=== PATIENT | female | born 1940 | race Caucasian/White ===

== ENCOUNTER 2023-01-24 13:15 | Observation (INO) ==
[2023-01-24] MEDS ORDERED: PANTOprazole 40 MG in SYRINGE 0 ML IV ONE (13:37)
--- NOTE | 2023-01-24 13:49 | Emergency Department Note ---
Impression & Plan GIB (gastrointestinal bleeding), Symptomatic anemia, Elevated troponin level, Acute UTI ED Provider Note NAME: TOOTIE HERMOSILLO AGE: 82 SEX: F : 1940 ARRIVES VIA: Ambulance INFORMANT: Patient ED PROVIDER(S): Nimesh Alexander DO CHIEF COMPLAINT: confusion and dark stool HPI: Patient is an 82-year-old female who presents to the ER for confusion which has been present for the past 2 days associated with hallucinations and dark stools. Patient denies any headache or change in vision. No chest pain or shortness of breath. No nausea vomiting or diarrhea. She does admit to hemorrhoids. She denies any urinary symptoms. Does admit to taking blood thinners. No recent trauma or falls. No belly pain. No other exacerbating or remitting factors. PAST MEDICAL HISTORY:See Below PAST SURGICAL HISTORY:See Below FAMILY HISTORY:See Below SOCIAL HISTORY:See Below HOME MEDICATIONS:See Below ALLERGIES:See Below VITALS:See Below PHYSICAL EXAMINATION: GENERAL: Sitting up in bed, alert, well appearing, well nourished, no distress, non-toxic EYE EXAM: normal conjunctiva. PERRL and EOM's intact. OROPHARYNX: no exudate, no erythema, lips, buccal mucosa, and tongue normal and mucous membranes are moist NECK: supple, no nuchal rigidity, no adenopathy, non-tender LUNGS: Clear to auscultation. Normal chest wall mechanics HEART: no murmurs, S1 normal and S2 normal ABDOMEN: abdomen soft, non-tender, normo-active bowel sounds, no masses, no rebound or guarding. BACK: Back is symmetrical on inspection and there is no deformity, no midline tenderness, no CVA tenderness. SKIN: no rashes and no bruising UPPER EXTREMITIES: upper extremities are grossly normal. LOWER EXTREMITIES: No pitting edema. NEURO EXAM: Normal sensorium, cranial nerves II-XII intact, normal speech, no weakness of arms, no weakness of legs. No drift. Finger to nose intact. Gross sensation intact. MEDICAL DECISION MAKING: Patient is an 82-year-old female brought in by EMS for weakness, dark stools and intermittent agitation/confusion. IV was established blood work was obtained. Labs show mild leukocytosis of 11,000. Hemoglobin at 6.5 with nothing to compare to. Rectally black stools heme positive on NOAC. BMP with creatinine 1.7. LFTs were unremarkable. Troponin slightly up at 34. Lipase unremarkable. EKG with significant ST wave changes and T wave inversions although no chest pain or significant shortness of breath. With the mildly bumped troponin do favor that this is demand in nature with a hemoglobin of 6. UA eventually resulted just following admission and patient was given Rocephin with nitrates and leukocytes. Patient was updated at bedside. Admitted to hospitalist for further evaluation treatment and management. NOAC was not reversed as I favor the GI bleed is likely over several days. No belly pain and consequently CT was not obtained. Triage Nursing notes reviewed. Limited review of prior medical records performed Vital Signs: reviewed and remarkable for no significant abnormalities Differential diagnosis: Infection, dehydration, metabolic abnormality, hypo/hyperglycemia, electrolyte d isturbance, anemia, hypoxia, cardiac sources, intracerebral event, toxicologic, neurologic, as well as other pathologies. ER treatment provided: See below Diagnostics interpreted by me include EKG and cardiac monitoring as listed below: -Cardiac Monitoring: An order was placed for continuous cardiac monitoring. The monitor shows a rate of 78 with sinus rhythm. -ECG: Sinus rhythm at 89 Normal axis Right bundle branch block T wave inversion and ST depressions in the septal anterior as well as T wave inv ersions in the lateral leads QTc 532 No old to compare to -Laboratory studies:Interpreted by me as stated above in MDM and shown below. Imaging studies: Xrays: As interpreted by me: Portable AP upright 1 view of the chest shows no focal infiltrate per my read CTs show: none Consultation(s): Discussed with Dr. Raoul Bird for further evaluation management and treatment Procedures:none Critical Care: I have personally spent 32 minutes of critical care time in the direct management of this patient. This includes bedside care, interpretation of diagnostic studies, and testing, discussion with consultants, patient, and family members, and other required patient management activities. This 32 minutes is in excess of all separately billable procedures. Past Med/Surg History Medical History (Updated 01/24/23 @ 16:42 by Nimesh Alexander DO) Atrial fibrillation CVA (cerebrovascular accident) HLD (hyperlipidemia) HTN (hypertension), benign Lung cancer Surgical History (Updated 01/24/23 @ 16:28 by Reta Swan PA-C) H/O: hysterectomy Status post pneumonectomy Social History Smoking Status: Former smoker Tobacco Type: Cigarettes Feels Safe at Home: Yes Allergies Allergies Allergy/AdvReac Type Severity Reaction Status Date / Time No Known Allergies Allergy Unverified 01/24/23 16:02 Home Meds Home Medications Medication Instructions Recorded Confirmed acetaminophen 500 mg tablet 1,000 mg PO Q6H PRN Pain 01/24/23 01/24/23 (Tylenol Extra Strength) alprazolam 0.5 mg tablet 0.5 mg PO TID PRN Anxiety 01/24/23 01/24/23 apixaban 5 mg tablet (Eliquis) 5 mg PO BID 01/24/23 01/24/23 aspirin 81 mg tablet,delayed 81 mg PO DAILY 01/24/23 01/24/23 release atorvastatin 40 mg tablet 40 mg PO HS 01/24/23 01/24/23 cholecalciferol (vitamin D3) 25 0 mcg PO DAILY 01/24/23 01/24/23 mcg (1,000 unit) tablet (Vitamin D3) cyanocobalamin (vitamin B-12) 0 mcg subcut MO 01/24/23 01/24/23 1,000 mcg/mL injection solution diltiazem HCl 240 mg 240 mg PO DAILY 01/24/23 01/24/23 capsule,extended release 24 hr, controlled (DILT-XR) furosemide 20 mg tablet 20 mg PO BID 01/24/23 01/24/23 glycopyrrolate 9 mcg-formoterol 2 puff inhalation BID 01/24/23 01/24/23 4.8 mcg HFA aerosol inhaler (Bevespi Aerosphere) insulin aspart U-100 100 unit/mL 0 unit subcut TIDM 01/24/23 01/24/23 (3 mL) subcutaneous pen (Novolog FlexPen U-100 Insulin aspart) lisinopril 5 mg tablet 5 mg PO DAILY 01/24/23 01/24/23 potassium 99 mg tablet 99 mg PO DAILY 01/24/23 01/24/23 tramadol 50 mg tablet 50 mg PO Q6 PRN Pain 01/24/23 01/24/23 Results & Data (ED) Vital Signs Vital Signs - 24 hr 01/24/23 13:25 01/24/23 13:26 01/24/23 14:19 Temperature 36.5 C Temperature Source Oral Pulse Rate 82 65 Pulse Rhythm Pulse Strength Respiratory Rate 19 21 Respiratory Effort / Characteristics Non-Labored Respiratory Depth Normal Respiratory Pattern Regular Blood Pressure 139/56 L Blood Pressure Mean 83 Blood Pressure Position Lying Pulse Oximetry 100 100 Oxygen Delivery Method Room Air Nasal Cannula Nasal Cannula Oxygen Flow Rate 4 4 Sepsis Recent Fever Within 48 Hours No Sepsis New/Unexplained Change in Mental Status No Sepsis Action Taken by Nursing No Action Required 01/24/23 14:30 01/24/23 14:30 01/24/23 15:00 Temperature Temperature Source Pulse Rate 73 Pulse Rhythm Pulse Strength Respiratory Rate 19 Respiratory Effort / Characteristics Respiratory Depth Respiratory Pattern Blood Pressure 118/59 L 127/74 Blood Pressure Mean 78 91 Blood Pressure Position Pulse Oximetry Oxygen Delivery Method Nasal Cannula Nasal Cannula Oxygen Flow Rate 4 4 Sepsis Recent Fever Within 48 Hours Sepsis New/Unexplained Change in Mental Status Sepsis Action Taken by Nursing 01/24/23 15:00 01/24/23 15:30 01/24/23 15:30 Temperature Temperature Source Pulse Rate 65 71 Pulse Rhythm Pulse Strength Respiratory Rate 23 25 H Respiratory Effort / Characteristics Respiratory Depth Respiratory Pattern Blood Pressure 145/67 H Blood Pressure Mean 93 Blood Pressure Position Pulse Oximetry 100 Oxygen Delivery Method Nasal Cannula Oxygen Flow Rate 4 Sepsis Recent Fever Within 48 Hours Sepsis New/Unexplained Change in Mental Status Sepsis Action Taken by Nursing 01/24/23 16:04 01/24/23 16:31 Temperature 36.6 C Temperature Source Oral Pulse Rate 67 68 Pulse Rhythm Regular Pulse Strength Normal Respiratory Rate 18 Respiratory Effort / Characteristics Respiratory Depth Respiratory Pattern Blood Pressure 149/60 H Blood Pressure Mean 89 Blood Pressure Position Lying Pulse Oximetry 100 Oxygen Delivery Method Oxygen Flow Rate Sepsis Recent Fever Within 48 Hours Sepsis New/Unexplained Change in Mental Status Sepsis Action Taken by Nursing Laboratory Data 01/24/23 14:01 01/24/23 14:01 Lab Results 01/24/23 01/24/23 01/24/23 Range/Units 14:01 14:01 14:01 WBC 11.12 H (4.8-10.8) K/ul RBC 2.42 L (4.20-5.40) M/uL Hgb 6.5 L* (12.0-16.0) g/dl Hct 20.9 L* (37.0-47.0) % MCV 86.4 (80.0-100.0) fL MCH 26.9 (25.0-34.0) pg MCHC 31.1 L (32.0-36.0) g/dL RDW Std Deviation 50.7 H (36.4-46.3) fL RDW Coeff of Bimal 16.1 H (11.5-14.5) % Plt Count 480 H (130-400) K/uL MPV 10.5 (9.4-12.4) fL Immature Gran % (Auto) 0.7 % Neut % (Auto) 86.5 % Lymph % (Auto) 7.5 % Stearns % (Auto) 4.8 % Eos % (Auto) 0.1 % Baso % (Auto) 0.4 % Neut # (Auto) 9.62 H (1.40-6.50) K/uL Lymph # (Auto) 0.83 L (1.2-3.4) K/uL Stearns # (Auto) 0.53 (0.11-0.59) K/uL Eos # (Auto) 0.01 (0-0.50) K/uL Baso # (Auto) 0.05 (0-0.2) K/uL Immature Gran # (Auto) 0.08 (0.01-0.20) K/uL Polychromasia 1+ Hypochromasia Present Acanthocytes (Spur) 2+ Schistocytes 1+ PT (9.0-12.0) Seconds INR (0.9-1.1) Sodium 140 (136-145) mmol/L Potassium 4.5 (3.5-5.1) mmol/L Chloride 106 (98-107) mmol/L Carbon Dioxide 25 (21-32) mmol/L Anion Gap 9 (3-11) BUN 45 H (6-23) mg/dl Creatinine 1.77 H (0.6-1.2) mg/dl Est Cr Clr Drug Dosing 23.0 ml/min Est GFR ( Amer) 30.0 ml/min Est GFR (Non-Af Amer) 25.9 ml/min BUN/Creatinine Ratio 25.4 H (10-20) Glucose 228 H (70-99(Fasting)) mg/dl Lactate (0.4-2.0) mmol/L Calcium 9.7 (8.5-10.1) mg/dl Magnesium (1.7-2.4) mg/dl Total Bilirubin 0.7 (0.2-1.0) mg/dl AST 12 L (13-39) U/L ALT 10 (7-52) U/L Alkaline Phosphatase 56 (34-104) U/L Troponin I High Sens 34.1 H (0-14) pg/ml Total Protein 6.8 (6.0-8.3) gm/dl Albumin 4.5 (3.4-5.0) gm/dl Globulin 2.3 L (2.5-4.0) gm/dl Albumin/Globulin Ratio 2.0 (0.9-2) Lipase 22 (11-82) U/L Urine Color Urine Appearance (Clear) Urine pH (4.5-7.5) Ur Specific [place] (1.000-1.030) Urine Protein (Negative) Urine Glucose (UA) (Negative) Urine Ketones (Negative) Urine Blood (Negative) Urine Nitrite (Negative) Urine Bilirubin (Negative) Urine Urobilinogen (Negative) Ur Leukocyte Esterase (Negative) SARS-CoV-2 (PCR) (Negative) Influenza Type A (PCR) (Neg) Influenza Type B (PCR) (Neg) RSV (RT-PCR) (Neg) Blood Type A Positive Blood Type Recheck Antibody Screen NEGATIVE Crossmatch See Detail 01/24/23 01/24/23 01/24/23 Range/Units 14:01 14:02 15:24 WBC (4.8-10.8) K/ul RBC (4.20-5.40) M/uL Hgb (12.0-16.0) g/dl Hct (37.0-47.0) % MCV (80.0-100.0) fL MCH (25.0-34.0) pg MCHC (32.0-36.0) g/dL RDW Std Deviation (36.4-46.3) fL RDW Coeff of Bimal (11.5-14.5) % Plt Count (130-400) K/uL MPV (9.4-12.4) fL Immature Gran % (Auto) % Neut % (Auto) % Lymph % (Auto) % Stearns % (Auto) % Eos % (Auto) % Baso % (Auto) % Neut # (Auto) (1.40-6.50) K/uL Lymph # (Auto) (1.2-3.4) K/uL Stearns # (Auto) (0.11-0.59) K/uL Eos # (Auto) (0-0.50) K/uL Baso # (Auto) (0-0.2) K/uL Immature Gran # (Auto) (0.01-0.20) K/uL Polychromasia Hypochromasia Acanthocytes (Spur) Schistocytes PT 12.9 H (9.0-12.0) Seconds INR 1.2 H (0.9-1.1) Sodium (136-145) mmol/L Potassium (3.5-5.1) mmol/L Chloride (98-107) mmol/L Carbon Dioxide (21-32) mmol/L Anion Gap (3-11) BUN (6-23) mg/dl Creatinine (0.6-1.2) mg/dl Est Cr Clr Drug Dosing ml/min Est GFR ( Amer) ml/min Est GFR (Non-Af Amer) ml/min BUN/Creatinine Ratio (10-20) Glucose (70-99(Fasting)) mg/dl Lactate (0.4-2.0) mmol/L Calcium (8.5-10.1) mg/dl Magnesium (1.7-2.4) mg/dl Total Bilirubin (0.2-1.0) mg/dl AST (13-39) U/L ALT (7-52) U/L Alkaline Phosphatase (34-104) U/L Troponin I High Sens (0-14) pg/ml Total Protein (6.0-8.3) gm/dl Albumin (3.4-5.0) gm/dl Globulin (2.5-4.0) gm/dl Albumin/Globulin Ratio (0.9-2) Lipase (11-82) U/L Urine Color Urine Appearance (Clear) Urine pH (4.5-7.5) Ur Specific [place] (1.000-1.030) Urine Protein (Negative) Urine Glucose (UA) (Negative) Urine Ketones (Negative) Urine Blood (Negative) Urine Nitrite (Negative) Urine Bilirubin (Negative) Urine Urobilinogen (Negative) Ur Leukocyte Esterase (Negative) SARS-CoV-2 (PCR) NEGATIVE (Negative) Influenza Type A (PCR) Negative (Neg) Influenza Type B (PCR) Negative (Neg) RSV (RT-PCR) Negative (Neg) Blood Type Blood Type Recheck A Positive Antibody Screen Crossmatch 02/28/23 02/28/23 02/28/23 Range/Units 15:25 15:25 15:36 WBC (4.8-10.8) K/ul RBC (4.20-5.40) M/uL Hgb (12.0-16.0) g/dl Hct (37.0-47.0) % MCV (80.0-100.0) fL MCH (25.0-34.0) pg MCHC (32.0-36.0) g/dL RDW Std Deviation (36.4-46.3) fL RDW Coeff of Bimal (11.5-14.5) % Plt Count (130-400) K/uL MPV (9.4-12.4) fL Immature Gran % (Auto) % Neut % (Auto) % Lymph % (Auto) % Stearns % (Auto) % Eos % (Auto) % Baso % (Auto) % Neut # (Auto) (1.40-6.50) K/uL Lymph # (Auto) (1.2-3.4) K/uL Stearns # (Auto) (0.11-0.59) K/uL Eos # (Auto) (0-0.50) K/uL Baso # (Auto) (0-0.2) K/uL Immature Gran # (Auto) (0.01-0.20) K/uL Polychromasia Hypochromasia Acanthocytes (Spur) Schistocytes PT (9.0-12.0) Seconds INR (0.9-1.1) Sodium (136-145) mmol/L Potassium (3.5-5.1) mmol/L Chloride (98-107) mmol/L Carbon Dioxide (21-32) mmol/L Anion Gap (3-11) BUN (6-23) mg/dl Creatinine (0.6-1.2) mg/dl Est Cr Clr Drug Dosing ml/min Est GFR ( Amer) ml/min Est GFR (Non-Af Amer) ml/min BUN/Creatinine Ratio (10-20) Glucose (70-99(Fasting)) mg/dl Lactate 1.0 (0.4-2.0) mmol/L Calcium (8.5-10.1) mg/dl Magnesium 2.2 (1.7-2.4) mg/dl Total Bilirubin (0.2-1.0) mg/dl AST (13-39) U/L ALT (7-52) U/L Alkaline Phosphatase (34-104) U/L Troponin I High Sens (0-14) pg/ml Total Protein (6.0-8.3) gm/dl Albumin (3.4-5.0) gm/dl Globulin (2.5-4.0) gm/dl Albumin/Globulin Ratio (0.9-2) Lipase (11-82) U/L Urine Color Yellow Urine Appearance Cloudy A (Clear) Urine pH 6.0 (4.5-7.5) Ur Specific [place] 1.015 (1.000-1.030) Urine Protein Negative (Negative) Urine Glucose (UA) Negative (Negative) Urine Ketones 1+ H (Negative) Urine Blood Negative (Negative) Urine Nitrite Positive A (Negative) Urine Bilirubin Negative (Negative) Urine Urobilinogen Negative (Negative) Ur Leukocyte Esterase 2+ H (Negative) SARS-CoV-2 (PCR) (Negative) Influenza Type A (PCR) (Neg) Influenza Type B (PCR) (Neg) RSV (RT-PCR) (Neg) Blood Type Blood Type Recheck Antibody Screen Crossmatch Administered Medications Pantoprazole Sodium 40 mg/ (Dextrose) 100 mls @ 20 mls/hr IV Q5H KERWIN Stop: 02/23/23 15:29 Last Admin: 01/24/23 16:35 Dose: 8 mg/hr, 20 mls/hr Documented By: DL Discontinued Medications Pantoprazole Sodium 40 mg/ (Syringe) 10 mls @ 5 mls/min IV NOW ONE Stop: 01/24/23 13:38 Last Admin: 01/24/23 15:35 Dose: 5 mls/min Documented By: [facility] Imaging Data Radiologist's Impression: Chest X-Ray 01/24/23 13:27 XR chest 1V portable CLINICAL HISTORY: Chest pain. COMPARISON STUDY: No previous studies for comparison. FINDINGS: Multiple right-sided rib deformities are noted. These may be postoperative. Mild elevation of the right hemidiaphragm is noted. There is no pneumothorax or pleural effusion. No consolidation is identified. Note is made of moderate cardiomegaly with pulmonary vascular congestion. There is no evidence for pulmonary edema. Bilateral hilar prominence is likely due to pulmonary vessels. IMPRESSION: 1. Cardiomegaly with pulmonary vascular congestion. 2. Bilateral hilar prominence, likely due to pulmonary vessels. ACT 112: Negative or not required by law. Electronically signed by: Thoams Dias M.D. 01/24/2023 2:17 PM Discharge Plan Visit Data Chief Complaint: Urinary Symptoms Stated Complaint: AMS, POSSIBLE UTI ED Provider: Nimesh Alexander Discharge Problem: GIB (gastrointestinal bleeding), Symptomatic anemia, Elevated troponin level, Acute UTI Forms Stand Alone Forms: My [facility] [employer] Prescriptions Prescriptions: No Action atorvastatin 40 mg tablet 40 mg PO HS diltiazem HCl [DILT-XR] 240 mg capsule,ext.rel 24h degradable 240 mg PO DAILY aspirin [Aspir-81] 81 mg Tablet,Delayed Release (Dr/Ec) 81 mg PO DAILY tramadol 50 mg tablet 50 mg PO Q6 PRN (Reason: Pain) acetaminophen [Tylenol Extra Strength] 500 mg Tablet 1,000 mg PO Q6H PRN (Reason: Pain) alprazolam 0.5 mg tablet 0.5 mg PO TID PRN (Reason: Anxiety) potassium 99 mg Tablet 99 mg PO DAILY cyanocobalamin (vitamin B-12) [Vitamin B-12] 1,000 mcg/mL Solution 0 mcg SUBCUT MO lisinopril 5 mg tablet 5 mg PO DAILY furosemide 20 mg tablet 20 mg PO BID insulin aspart U-100 [Novolog FlexPen U-100 Insulin] 100 unit/mL (3 mL) insulin pen 0 unit SUBCUT TIDM Rx Instructions: Per sliding scale cholecalciferol (vitamin D3) [Vitamin D3] 25 mcg (1,000 unit) Tablet 0 mcg PO DAILY Eliquis 5 mg tablet 5 mg PO BID Bevespi Aerosphere 9-4.8 mcg HFA aerosol inhaler 2 puff INHALATION BID Referrals Referrals: PCP,NO [Physician] -
--- NOTE | 2023-01-24 14:18 | XRay Report ---
XR chest 1V portable CLINICAL HISTORY: Chest pain. COMPARISON STUDY: No previous studies for comparison. FINDINGS: Multiple right-sided rib deformities are noted. These may be postoperative. Mild elevation of the right hemidiaphragm is noted. There is no pneumothorax or pleural effusion. No consolidation i s identified. Note is made of moderate cardiomegaly with pulmonary vascular congestion. There is no e vidence for pulmonary edema. Bilateral hilar prominence is likely due to pulmonary vessels. IMPRESSION: 1. Cardiomegaly with pulmonary vascular congestion. 2. Bilateral hilar prominence, likely due to pulmonary vessels. ACT 112: Negative or not required by law. Electronically signed by: Thomas Dias M.D. 01/24/2023 2:17 PM
[2023-01-24 14:46] LABS: Albumin Level 4.5 gm/dl (3.4-5.0); BUN Creatinine Ratio 25.4 (10-20); Bilirubin,Total 0.7 mg/dl (0.2-1.0); Calcium 9.7 mg/dl (8.5-10.1); Est GFR (Non-African American) 25.9 ml/min; Globulin 2.3 gm/dl (2.5-4.0); Potassium 4.5 mmol/L (3.5-5.1); Total Protein 6.8 gm/dl (6.0-8.3)
[2023-01-24] MEDS ORDERED: SODIUM CHLORIDE 0.9% 250 ML IV PRN ×2 (14:47→21:47)
[2023-01-24 14:48] LABS: Hematocrit (blood only) 20.9 % (37.0-47.0); Hemoglobin 6.5 g/dl (12.0-16.0); Mean Corpuscular Hemoglobin 26.9 pg (25.0-34.0); Mean Corpuscular Hgb Conc 31.1 g/dL (32.0-36.0); Mean Corpuscular Volume 86.4 fL (80.0-100.0); Mean Platelet Volume 10.5 fL (9.4-12.4); Platelet Count 480 K/uL (130-400); RDW Coefficient of Variation 16.1 % (11.5-14.5); RDW Standard Deviation 50.7 fL (36.4-46.3); Red Blood Count 2.42 M/uL (4.20-5.40); Troponin I High Sensitivity 34.1 pg/ml (0-14); White Blood Count 11.12 K/ul (4.8-10.8)
[2023-01-24 14:50] LABS: Acanthocytes 2+; Basophils # (auto) 0.05 K/uL (0-0.2); Basophils % (auto) 0.4 %; Eosinophils # (auto) 0.01 K/uL (0-0.50); Eosinophils % (auto) 0.1 %; Hypochromasia Present; Immature Granulocytes # (auto) 0.08 K/uL (0.01-0.20); Immature Granulocytes % (auto) 0.7 %; Lymphocytes # (auto) 0.83 K/uL (1.2-3.4); Lymphocytes % (auto) 7.5 %; Monocytes # (auto) 0.53 K/uL (0.11-0.59); Monocytes % (auto) 4.8 %; Neutrophils # (auto) 9.62 K/uL (1.40-6.50); Neutrophils % (auto) 86.5 %; Polychromasia 1+; Schistocytes 1+
--- NOTE | 2023-01-24 14:51 | Electrocardiogram Report ---
Test Reason : Blood Pressure : / mmHG Vent. Rate : 089 BPM Atrial Rate : 093 BPM P-R Int : 184 ms QRS Dur : 148 ms QT Int : 438 ms P-R-T Axes : 000 229 -38 degrees QTc Int : 532 ms Normal sinus rhythm with sinus arrhythmia Right bundle branch block , plus right ventricular hypertrophy T wave abnormality, consider lateral ischemia Abnormal ECG No previous ECGs available Confirmed by Ketan Miguel ([id number]) on 01/24/2023 2:50:34 PM Referred By: Confirmed By:Ketan Miguel
[2023-01-24 14:57] LABS: INR 1.2 (0.9-1.1); Prothrombin Time 12.9 Seconds (9.0-12.0)
[2023-01-24 15:02] LABS: Influenza A virus by PCR Negative (Neg); Influenza B virus by PCR Negative (Neg); RSV by PCR Negative (Neg); SARS CoV2 RNA(COVID-19) Ceph NEGATIVE (Negative)
--- NOTE | 2023-01-24 15:34 | History & Physical Report ---
Date of Service January 24, 2023 Assessment & Plan (1) GIB (gastrointestinal bleeding): Plan: Presented to ER w/ AMS and hgb 6.5, unclear baseline, on eliquis (however appears to be on higher dose than likely should given her age/weight/kidney function and should have been on 2.5mg BID) Also w/ possible JALIL Cr 1.77 however no prior values to compare. Trop 34 EKG w/ NSR/sinus arrhythmia, RBB, RVH, T wave abn in lateral leads -- trop 34, likely demand ischemia in setting of anemia/GIB and will trend Given patient mentating, and actually on 4L at baseline, suspect this has been going on for some time, but without prior values difficult to determine Records from PCP requested, Dr Barahona T/S ordered, type/cross for [address] from ER -- 1st unit when blood available and will monitor serial CBCs/additional PRBC if needed check iron studies w/ AM blood for eval Protonix IVP in ER, placed on protonix gtt for now but can consider IV BID given dose appear to be stable NPO, ordered clear liquids for now given GI and NPO at midnight Avoiding IVF given volume overload on CXR and may need dose of lasix following blood transfusion. On usual 4L NC at baseline serial CBC Per discussion w/ GI, rec CTAP, will do w/ oral contrast given her Cr 1.77 GI consulted holding eliquis in setting of GIB, SCDs ordered -- no Kcentra for now, but if further drop on repeat can consider however again, appears stable compared to prior values Has had c-scope in the past but it has been quite a long time , no prior known EGD Monitor labs on repeat/additional blood as needed (2) H/O: HTN (hypertension): Plan: BP 139/56 appears on cardizem 240mg, lisinopril 10mg, amlodipine 5mg daily, lasix 20mg BID holding lisinopril/lasix PO given suspected JALIL from ABLA continue cardizem/amlodipine for now may need dose IV lasix w/ additional blood however Monitor BP (3) HLD (hyperlipidemia): Plan: atorvastastin 40mg daily (4) Diabetes mellitus: Plan: unknown baseline A1c, 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5mg BID Mentation at baseline, no deficits on exam, daughter at baseline (reported confusion at home 2 days ago) (8) Hx of pneumonectomy: Plan: for lung ca in previous smoker, hasn't smoked in many years remains on inhaler daily, 4L NC Does endorse SOB w/ ambulation, suspect due to underlying anemia monitor SOB symptoms w/ blood transfusion History of Present Illness Chief Complaint: confusion x 2 days, hallucinations and dark stools Primary Care Provider: NO PCP 82yo female presented to the emergency department with two days of confusion w/ reported darkened stools on Eliquis. Hgb 6.5 on admission, unknown baseline. WBC 11.12 CXR w/ cardiomegaly with pulmonary vascular congestion, bilateral hilar prominence likely due to pulmonary vessels. Patient has been consented for blood, 2u ordered but not ready. Plan to give Lasix w/ blood given overload and tech getting second IV site. 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 She does endorse shortness of breath/chest discomfort with ambulation which has been going on for some time. States hx lung ca s/p resection, used to be a smoker. In remission. States she does chronically wear oxygen, 4L at baseline. Currently 100% on 4L. She does take Lasix 20mg twice daily but does not check her weights. She states she was previously on Plavix, history of stroke, but found to have afib and was switched from Plavix to Eliquis this past October. Noted last BM yesterday, chronic issues w/ bowel movements. 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 Daughter noted the darkened stools with bowel movement as she was cleaning up her potty chair. No abdominal pain, nausea/vomiting at present. She states currently she feels fine and is either "going to freeze to " or "starve to ". Discussed clear liquids for today and NPO at midnight and would like abdominal imaging for more information. questions/concerns addressed at this time. Allergies Allergy/AdvReac Type Severity Reaction Status Date / Time No Known Allergies Allergy Unverified 01/24/23 16:02 Home Medications Medication Instructions Recorded Confirmed Type acetaminophen 500 mg tablet 1,000 mg PO Q6H PRN Pain 01/24/23 01/24/23 History (Tylenol Extra Strength) alprazolam 0.5 mg tablet 0.5 mg PO TID PRN Anxiety 01/24/23 01/24/23 History apixaban 5 mg tablet (Eliquis) 5 mg PO BID 01/24/23 01/24/23 History aspirin 81 mg tablet,delayed 81 mg PO DAILY 01/24/23 01/24/23 History release atorvastatin 40 mg tablet 40 mg PO HS 01/24/23 01/24/23 History cholecalciferol (vitamin D3) 25 0 mcg PO DAILY 01/24/23 01/24/23 History mcg (1,000 unit) tablet (Vitamin D3) cyanocobalamin (vitamin B-12) 0 mcg subcut MO 01/24/23 01/24/23 History 1,000 mcg/mL injection solution diltiazem HCl 240 mg 240 mg PO DAILY 01/24/23 01/24/23 History capsule,extended release 24 hr, controlled (DILT-XR) furosemide 20 mg tablet 20 mg PO BID 01/24/23 01/24/23 History glycopyrrolate 9 mcg-formoterol 2 puff inhalation BID 01/24/23 01/24/23 History 4.8 mcg HFA aerosol inhaler (Bevespi Aerosphere) insulin aspart U-100 100 unit/mL 0 unit subcut TIDM 01/24/23 01/24/23 History (3 mL) subcutaneous pen (Novolog FlexPen U-100 Insulin aspart) lisinopril 5 mg tablet 5 mg PO DAILY 01/24/23 01/24/23 History potassium 99 mg tablet 99 mg PO DAILY 01/24/23 01/24/23 History tramadol 50 mg tablet 50 mg PO Q6 PRN Pain 01/24/23 01/24/23 History Past Med/Surg History Medical History (Updated 01/24/23 @ 16:42 by Nimesh Alexander DO) Atrial fibrillation CVA (cerebrovascular accident) HLD (hyperlipidemia) HTN (hypertension), benign Lung cancer Surgical History (Updated 01/24/23 @ 16:28 by Reta Swan PA-C) H/O: hysterectomy Status post pneumonectomy Social History Smoking Status: Former smoker Tobacco Type: Cigarettes Second Hand Exposure: No; Do You Dip or Chew Tobacco: No; Tobacco Cessation Education Requested by Patient: No Hx Alcohol Use: No Hx Substance Use: No Preferred Language: Kinyarwanda Communication Ability: Effective Boot Repairer Required: No Beliefs That Will Affect Care: None Current Living Situation: Spouse Other Information That Helps Us Care for You: No Feels Safe at Home: Yes Assistive Devices: Denture - Upper, Hospital Bed and Oxygen - Continuous Review of Systems Review of Systems: All systems reviewed & are unremarkable except as noted in HPI & below Physical Exam Physical Exam: General: chronically ill appearing female sitting up in bed, NAD, daughter at bedside, general pallor/jaundiced appearance HEENT; head normocephalic, mm slightly dry, trachea midline, no deviation Resp: diminished in the bases, no significant wheezing, on 4L chronically CV: regular w/ PACs, +murmur, no significant LE edema/trace, pulses palpable, extremities cool GI: +BS, slight distension, nontender, no appreciable masses : no cornell MSK/Neuro: follows commands, no focal deficits, CN intact grossly Psych: alert/oriented to person/place/time Results & Data Results & Data ([facility]) Vital Signs (Past 12 Hours) Vital Signs Temp Pulse Resp BP Pulse Ox O2 Del Method O2 Flow Rate 01/24/23 13:26 100 Nasal Cannula 4 01/24/23 13:25 36.5 C 82 19 139/56 L 100 Room Air Laboratory Results 01/24/23 01/24/23 01/24/23 Range/Units 15:36 15:25 15:25 WBC (4.8-10.8) K/ul RBC (4.20-5.40) M/uL Hgb (12.0-16.0) g/dl Hct (37.0-47.0) % MCV (80.0-100.0) fL MCH (25.0-34.0) pg MCHC (32.0-36.0) g/dL RDW Std Deviation (36.4-46.3) fL RDW Coeff of Bimal (11.5-14.5) % Plt Count (130-400) K/uL MPV (9.4-12.4) fL Immature Gran % (Auto) % Neut % (Auto) % Lymph % (Auto) % Ashe % (Auto) % Eos % (Auto) % Baso % (Auto) % Neut # (Auto) (1.40-6.50) K/uL Lymph # (Auto) (1.2-3.4) K/uL Ashe # (Auto) (0.11-0.59) K/uL Eos # (Auto) (0-0.50) K/uL Baso # (Auto) (0-0.2) K/uL Immature Gran # (Auto) (0.01-0.20) K/uL Polychromasia Hypochromasia Acanthocytes (Spur) Schistocytes PT (9.0-12.0) Seconds INR (0.9-1.1) Sodium (136-145) mmol/L Potassium (3.5-5.1) mmol/L Chloride (98-107) mmol/L Carbon Dioxide (21-32) mmol/L Anion Gap (3-11) BUN (6-23) mg/dl Creatinine (0.6-1.2) mg/dl Est Cr Clr Drug Dosing ml/min Est GFR ( Amer) ml/min Est GFR (Non-Af Amer) ml/min BUN/Creatinine Ratio (10-20) Glucose (70-99(Fasting)) mg/dl Lactate 1.0 (0.4-2.0) mmol/L Calcium (8.5-10.1) mg/dl Magnesium Pending Iron Pending TIBC Pending Unsaturated IBC Pending Transferrin % Sat Pending Ferritin Pending Total Bilirubin (0.2-1.0) mg/dl AST (13-39) U/L ALT (7-52) U/L Alkaline Phosphatase (34-104) U/L Troponin I High Sens (0-14) pg/ml Total Protein (6.0-8.3) gm/dl Albumin (3.4-5.0) gm/dl Globulin (2.5-4.0) gm/dl Albumin/Globulin Ratio (0.9-2) Lipase (11-82) U/L Urine Color Pending Urine Appearance Pending Urine pH Pending Ur Specific [place] Pending Urine Protein Pending Urine Glucose (UA) Pending Urine Ketones Pending Urine Blood Pending Urine Nitrite Pending Urine Bilirubin Pending Urine Urobilinogen Pending Ur Leukocyte Esterase Pending SARS-CoV-2 (PCR) (Negative) Influenza Type A (PCR) (Neg) Influenza Type B (PCR) (Neg) RSV (RT-PCR) (Neg) Blood Type Blood Type Recheck Antibody Screen Crossmatch 01/24/23 01/24/23 01/24/23 Range/Units 15:24 14:02 14:01 WBC (4.8-10.8) K/ul RBC (4.20-5.40) M/uL Hgb (12.0-16.0) g/dl Hct (37.0-47.0) % MCV (80.0-100.0) fL MCH (25.0-34.0) pg MCHC (32.0-36.0) g/dL RDW Std Deviation (36.4-46.3) fL RDW Coeff of Bimal (11.5-14.5) % Plt Count (130-400) K/uL MPV (9.4-12.4) fL Immature Gran % (Auto) % Neut % (Auto) % Lymph % (Auto) % Ashe % (Auto) % Eos % (Auto) % Baso % (Auto) % Neut # (Auto) (1.40-6.50) K/uL Lymph # (Auto) (1.2-3.4) K/uL Ashe # (Auto) (0.11-0.59) K/uL Eos # (Auto) (0-0.50) K/uL Baso # (Auto) (0-0.2) K/uL Immature Gran # (Auto) (0.01-0.20) K/uL Polychromasia Hypochromasia Acanthocytes (Spur) Schistocytes PT 12.9 H (9.0-12.0) Seconds INR 1.2 H (0.9-1.1) Sodium (136-145) mmol/L Potassium (3.5-5.1) mmol/L Chloride (98-107) mmol/L Carbon Dioxide (21-32) mmol/L Anion Gap (3-11) BUN (6-23) mg/dl Creatinine (0.6-1.2) mg/dl Est Cr Clr Drug Dosing ml/min Est GFR ( Amer) ml/min Est GFR (Non-Af Amer) ml/min BUN/Creatinine Ratio (10-20) Glucose (70-99(Fasting)) mg/dl Lactate (0.4-2.0) mmol/L Calcium (8.5-10.1) mg/dl Magnesium Iron TIBC Unsaturated IBC Transferrin % Sat Ferritin Total Bilirubin (0.2-1.0) mg/dl AST (13-39) U/L ALT (7-52) U/L Alkaline Phosphatase (34-104) U/L Troponin I High Sens (0-14) pg/ml Total Protein (6.0-8.3) gm/dl Albumin (3.4-5.0) gm/dl Globulin (2.5-4.0) gm/dl Albumin/Globulin Ratio (0.9-2) Lipase (11-82) U/L Urine Color Urine Appearance Urine pH Ur Specific [place] Urine Protein Urine Glucose (UA) Urine Ketones Urine Blood Urine Nitrite Urine Bilirubin Urine Urobilinogen Ur Leukocyte Esterase SARS-CoV-2 (PCR) NEGATIVE (Negative) Influenza Type A (PCR) Negative (Neg) Influenza Type B (PCR) Negative (Neg) RSV (RT-PCR) Negative (Neg) Blood Type Blood Type Recheck A Positive Antibody Screen Crossmatch 01/24/23 01/24/23 01/24/23 Range/Units 14:01 14:01 14:01 WBC 11.12 H (4.8-10.8) K/ul RBC 2.42 L (4.20-5.40) M/uL Hgb 6.5 L* (12.0-16.0) g/dl Hct 20.9 L* (37.0-47.0) % MCV 86.4 (80.0-100.0) fL MCH 26.9 (25.0-34.0) pg MCHC 31.1 L (32.0-36.0) g/dL RDW Std Deviation 50.7 H (36.4-46.3) fL RDW Coeff of Bimal 16.1 H (11.5-14.5) % Plt Count 480 H (130-400) K/uL MPV 10.5 (9.4-12.4) fL Immature Gran % (Auto) 0.7 % Neut % (Auto) 86.5 % Lymph % (Auto) 7.5 % Ashe % (Auto) 4.8 % Eos % (Auto) 0.1 % Baso % (Auto) 0.4 % Neut # (Auto) 9.62 H (1.40-6.50) K/uL Lymph # (Auto) 0.83 L (1.2-3.4) K/uL [place]he # (Auto) 0.53 (0.11-0.59) K/uL Eos # (Auto) 0.01 (0-0.50) K/uL Baso # (Auto) 0.05 (0-0.2) K/uL Immature Gran # (Auto) 0.08 (0.01-0.20) K/uL Polychromasia 1+ Hypochromasia Present Acanthocytes (Spur) 2+ Schistocytes 1+ PT (9.0-12.0) Seconds INR (0.9-1.1) Sodium 140 (136-145) mmol/L Potassium 4.5 (3.5-5.1) mmol/L Chloride 106 (98-107) mmol/L Carbon Dioxide 25 (21-32) mmol/L Anion Gap 9 (3-11) BUN 45 H (6-23) mg/dl Creatinine 1.77 H (0.6-1.2) mg/dl Est Cr Clr Drug Dosing 23.0 ml/min Est GFR ( Amer) 30.0 ml/min Est GFR (Non-Af Amer) 25.9 ml/min BUN/Creatinine Ratio 25.4 H (10-20) Glucose 228 H (70-99(Fasting)) mg/dl Lactate (0.4-2.0) mmol/L Calcium 9.7 (8.5-10.1) mg/dl Magnesium Iron TIBC Unsaturated IBC Transferrin % Sat Ferritin Total Bilirubin 0.7 (0.2-1.0) mg/dl AST 12 L (13-39) U/L ALT 10 (7-52) U/L Alkaline Phosphatase 56 (34-104) U/L Troponin I High Sens 34.1 H (0-14) pg/ml Total Protein 6.8 (6.0-8.3) gm/dl Albumin 4.5 (3.4-5.0) gm/dl Globulin 2.3 L (2.5-4.0) gm/dl Albumin/Globulin Ratio 2.0 (0.9-2) Lipase 22 (11-82) U/L Urine Color Urine Appearance Urine pH Ur Specific [place] Urine Protein Urine Glucose (UA) Urine Ketones Urine Blood Urine Nitrite Urine Bilirubin Urine Urobilinogen Ur Leukocyte Esterase SARS-CoV-2 (PCR) (Negative) Influenza Type A (PCR) (Neg) Influenza Type B (PCR) (Neg) RSV (RT-PCR) (Neg) Blood Type A Positive Blood Type Recheck Antibody Screen NEGATIVE Crossmatch See Detail Diagnostic Findings Chest X-Ray 01/24/23 13:27 XR chest 1V portable CLINICAL HISTORY: Chest pain. COMPARISON STUDY: No previous studies for comparison. FINDINGS: Multiple right-sided rib deformities are noted. These may be postoperative. Mild elevation of the right hemidiaphragm is noted. There is no pneumothorax or pleural effusion. No consolidation is identified. Note is made of moderate cardiomegaly with pulmonary vascular congestion. There is no evidence for pulmonary edema. Bilateral hilar prominence is likely due to pulmonary vessels. IMPRESSION: 1. Cardiomegaly with pulmonary vascular congestion. 2. Bilateral hilar prominence, likely due to pulmonary vessels. ACT 112: Negative or not required by law. Electronically signed by: Thomas Dias M.D. 01/24/2023 2:17 PM Supervising Physician Co-Signing Physician Notes I personally saw and examined the patient. I verified all olson points and agree with Reta Swan PA-C with the following exceptions and/or additions: 82 year old female presents to the ER with 2 days of confusion, dizziness on standing, melena. Unable to get much history from patient as she is hard of hearing. See history as above. O/E very hard of hearing, alert, no respiratory distress, Chest CTAB, HS RRR, no mu rmurs, Abdo SNT A/P Acute GI bleed - stop Eliquis and aspirin, Pantoprazole IV drip, NPO after midnight, consult GI, CT A/P with oral contrast UTI - possible diagnosis with urine smell, ceftriaxone, follow up urine culture PG Care Time/CCT Total # of Minutes Spent Total Time Spent with Patient: Total time spent is greater than 50% in coordination of care (as documented) at patient's floor/unit and/or counseling patient: Coding Level of Care Code 82533 INT INP/OBS CARE 3/75MIN Diagnoses GIB (gastrointestinal bleeding) K92.2 H/O: HTN (hypertension) Z86.79 HLD (hyperlipidemia) E78.5 Diabetes mellitus E11.9 Atrial fibrillation I48.91 Acute kidney injury N17.9 CVA (cerebrovascular accident) I63.9 Hx of pneumonectomy Z98.890; Z90.2
[2023-01-24 16:21] LABS: Appearance Urine Cloudy (Clear); Bacteria Urine Automated 2+ (Negative); Bilirubin Urine Negative (Negative); Blood Urine Negative (Negative); Color Urine Yellow; Epithelial Cell Urine Auto 0-5 /lpf (0-5); Glucose Urine UA Negative (Negative); Ketones Urine 1+ (Negative); Leukocyte Esterase Urine 2+ (Negative); Nitrite Urine Positive (Negative); Protein Urine Negative (Negative); RBC Urine Automated 0-4 /hpf (0-4); Specific Gravity Urine 1.015 (1.000-1.030); Urobilinogen Urine Negative (Negative); WBC Urine Automated >30 /hpf (0-5)
[2023-01-24] MEDS: PANTOprazole 40 MG in DEXTROSE 5% 100 ML IV SCH ×2 (16:35→21:35)
[2023-01-24 16:38] LABS: Magnesium 2.2 mg/dl (1.7-2.4)
[2023-01-24] MEDS ORDERED: cefTRIAXone SODIUM 2,000 MG/70 ML BAG IV STA (16:42)
[2023-01-24 16:52] LABS: Ferritin 14.5 ng/ml (8-388)
[2023-01-24] MEDS ORDERED: CARBOHYDRATES FOR HYPOGLYCEMIA PO PRN (19:09)
[2023-01-24] MEDS ORDERED: ONDANSETRON INJ 2 MG/ML 2 ML VIAL IV PRN (19:09)
[2023-01-24] MEDS ORDERED: GLUCOSE 40% GEL 15 GM TUBE PO PRN (19:09)
[2023-01-24] MEDS ORDERED: GLUCAGON FOR INJ 1 MG VIAL SQ PRN (19:09)
[2023-01-24] MEDS ORDERED: ALPRAZolam 0.5 MG TABLET PO PRN (19:09)
[2023-01-24] MEDS ORDERED: traMADol HCL 50 MG TABLET PO PRN (19:09)
[2023-01-24] MEDS ORDERED: DEXTROSE 50% 50 ML SYRINGE IV PRN (19:09)
[2023-01-24] MEDS ORDERED: ACETAMINOPHEN 500 MG TAB PO PRN (19:09)
[2023-01-24] MEDS ORDERED: GLUCOSE 10 TAB/TUBE PO PRN (19:09)
--- NOTE | 2023-01-24 21:01 | CT Scan Report ---
CT OF THE ABDOMEN AND PELVIS WITH ORAL CONTRAST CLINICAL HISTORY: GIB, acute blood loss anemia COMPARISON STUDY: No previous studies for comparison. TECHNIQUE: Axial images of the abdomen and pelvis were obtained without IV contrast. Oral contrast wa s administered. Automated exposure control was utilized for the study. A dose lowering technique was utilized adhering to the principles of ALARA. FINDINGS: Cardiomegaly, mild interstitial edema and small bilateral pleural effusions are noted. Ther e is a trace pericardial effusion. Evaluation of the abdomen and pelvis is suboptimal on this unenhan fransisca exam. The liver, spleen, adrenal glands are unremarkable. There are multiple suspected cystic lazcano creatic lesions that measure up to 2.6 cm. There is no biliary dilatation. Pancreatic duct is subopti shun assessed on this exam. Evaluation is suboptimal on this unenhanced exam. Low-attenuation right adrenal nodule is likely benign. There is a probable cyst within the right kidney. There is no hydron ephrosis. A 3.5 cm infrarenal abdominal aortic aneurysm is present. There is a small amount of ascite s within the pelvis. Colonic diverticulosis is noted without evidence for acute diverticulitis. There is no retroperitoneal hematoma. Anasarca is noted. There are no acute fractures. IMPRESSION: 1. No bowel obstruction. Extensive colonic diverticulosis without evidence for acute diverticulitis. 2. 3.5 cm infrarenal abdominal aortic aneurysm. 3. Evidence for volume overload with mild pulmonary edema, small bilateral pleural effusions, anasarc a and a small amount of ascites. 4. Numerous pancreatic cystic lesions. Although suboptimally assessed on this unenhanced exam, the pr obably reflect side branch IPMNs. ACT 112: Negative or not required by law. Electronically signed by: Thomas Dias M.D. 01/24/2023 8:58 PM
[2023-01-24] MEDS: ATORVASTATIN 40 MG TAB PO SCH (21:10)
[2023-01-24] MEDS: dilTIAZem HCL 240 MG CAPCR PO SCH (21:10)
[2023-01-24] MEDS: INSULIN ASPART PER UNIT SC SCH (21:19)
[2023-01-25] MEDS: PANTOprazole 40 MG in DEXTROSE 5% 100 ML IV SCH ×5 (02:35→22:46)
[2023-01-25 03:12] LABS: BUN Creatinine Ratio 23.8 (10-20); Calcium 9.4 mg/dl (8.5-10.1); Est GFR (African American) 36.4 ml/min; Est GFR (Non-African American) 31.4 ml/min; Hematocrit (blood only) 28.9 % (37.0-47.0); Hemoglobin 9.4 g/dl (12.0-16.0); Mean Corpuscular Hemoglobin 27.8 pg (25.0-34.0); Mean Corpuscular Hgb Conc 32.5 g/dL (32.0-36.0); Mean Corpuscular Volume 85.5 fL (80.0-100.0); Mean Platelet Volume 10.4 fL (9.4-12.4); Nucleated RBC # (auto) 0.03 K/uL (0-0.12); Nucleated RBC % (auto) 0.2 %; Platelet Count 395 K/uL (130-400); Potassium 4.2 mmol/L (3.5-5.1); RDW Coefficient of Variation 15.3 % (11.5-14.5); Red Blood Count 3.38 M/uL (4.20-5.40); White Blood Count 14.43 K/ul (4.8-10.8)
[2023-01-25 03:21] LABS: Troponin I High Sensitivity 52.2 pg/ml (0-14)
[2023-01-25] MEDS: INSULIN ASPART PER UNIT SC SCH ×5 (07:48→21:06)
[2023-01-25 08:04] LABS: Estimated Average Glucose 137 mg/dl; Hemoglobin A1C 6.4 % (4.5-5.6)
[2023-01-25] MEDS: UMECLIDINIUM/VILANTEROL 62.5/25MCG 7 PUFFS/INHALER INH SCH (08:21)
[2023-01-25] MEDS ORDERED: METOCLOPRAMIDE HCL INJ 5 MG/ML 2 ML VIAL IV STA (08:29)
[2023-01-25 09:21] LABS: Hematocrit (blood only) 28.9 % (37.0-47.0); Hemoglobin 9.4 g/dl (12.0-16.0); Mean Corpuscular Hemoglobin 27.6 pg (25.0-34.0); Mean Corpuscular Hgb Conc 32.5 g/dL (32.0-36.0); Mean Platelet Volume 10.1 fL (9.4-12.4); Nucleated RBC # (auto) 0.04 K/uL (0-0.12); Nucleated RBC % (auto) 0.3 %; Platelet Count 375 K/uL (130-400); RDW Coefficient of Variation 15.7 % (11.5-14.5); RDW Standard Deviation 48.3 fL (36.4-46.3); White Blood Count 12.96 K/ul (4.8-10.8)
[2023-01-25 09:34] LABS: BUN Creatinine Ratio 22.5 (10-20); Calcium 9.5 mg/dl (8.5-10.1); Creatinine Clr Calc Pharmacy 28.7 ml/min; Est GFR (African American) 39.2 ml/min; Est GFR (Non-African American) 33.8 ml/min; Potassium 4.2 mmol/L (3.5-5.1)
--- NOTE | 2023-01-25 09:56 | Gastrointestinal Consultation ---
Date of Consultation January 25, 2023 Assessment & Plan (1) Symptomatic anemia: Discussed case with Dr. Smith who had advised on plan. I recommended to the patient that we pursue an EGD to further evaluate and anemia as well as the dark stools she is having. She tells me she absolutely refuses to have any endoscopic work up given her age. I did explain to the patient that if she is bleeding and by defering test that this can allow for continued bleeding and complications. She voiced understanding but tells me that she refuses endoscopic evaluation at this time and just wishes to monitor her labs. Her hgb has improved from 6.5 to 9.4. She is asymptomatic at this time. - continue to trend anemia. transfuse as needed. - would continue with protonix drip at this time. - continue to hold eliquis. Supervising Physician Co-Signing Physician Notes Agree with MORGAN Woo as above Abd: Soft, NT, ND, +BS Patient denies any abdominal symptoms. Asking for advancement in diet Continue current therapy and supportive care Will reevaluate in the AM Patient refused EGD this AM, but states she is willing to do this now, after discussion with daughter. No overt GI bleeding noted today. History of Present Illness Reason for Consultation: GIB Requesting Physician: Reta Swan PA-C Attending Physician: Alexys Oseguera MD History of Present Illness Patient is an 82 year old female with history of a fib on eliquis (last dose reported 01/23 per patient), who presented to the ED yesterday with complaints of ongoing weakness/dizziness. She admits that last week she had taken a narcotic and developed constipation so she started taking stool softeners and then had several days of loose stools. she does not quantify how many bowel movements she had a day. she does report that over this time that stools were dark. no brbpr. Upon evaluation in the ED she was found to have a hgb of 6.5 and was transfused with 2 units of PRBCs and her hgb improved to 9.4. no nsaid use. she tells me she had egd and colonoscopy "many years ago" and tells me they were done in [place]. She tells me she does not wish to have any further egd or colonoscopy done. she tells me she has not had any further bowel movement since admission. Patient denies any current issues with nausea, vomiting, dysphagia, heartburn, abdominal pain, unintentional weight loss. Allergies Allergy/AdvReac Type Severity Reaction Status Date / Time No Known Allergies Allergy Unverified 01/24/23 16:02 Home Medications Medication Instructions Recorded Confirmed Type acetaminophen 500 mg tablet 1,000 mg PO Q6H PRN Pain 01/24/23 01/24/23 History (Tylenol Extra Strength) alprazolam 0.5 mg tablet 0.5 mg PO TID PRN Anxiety 01/24/23 01/24/23 History apixaban 5 mg tablet (Eliquis) 5 mg PO BID 01/24/23 01/24/23 History aspirin 81 mg tablet,delayed 81 mg PO DAILY 01/24/23 01/24/23 History release atorvastatin 40 mg tablet 40 mg PO HS 01/24/23 01/24/23 History cholecalciferol (vitamin D3) 25 0 mcg PO DAILY 01/24/23 01/24/23 History mcg (1,000 unit) tablet (Vitamin D3) cyanocobalamin (vitamin B-12) 0 mcg subcut MO 01/24/23 01/24/23 History 1,000 mcg/mL injection solution diltiazem HCl 240 mg 240 mg PO DAILY 01/24/23 01/24/23 History capsule,extended release 24 hr, controlled (DILT-XR) furosemide 20 mg tablet 20 mg PO BID 01/24/23 01/24/23 History glycopyrrolate 9 mcg-formoterol 2 puff inhalation BID 01/24/23 01/24/23 History 4.8 mcg HFA aerosol inhaler (Bevespi Aerosphere) insulin aspart U-100 100 unit/mL 0 unit subcut TIDM 01/24/23 01/24/23 History (3 mL) subcutaneous pen (Novolog FlexPen U-100 Insulin aspart) lisinopril 5 mg tablet 5 mg PO DAILY 01/24/23 01/24/23 History potassium 99 mg tablet 99 mg PO DAILY 01/24/23 01/24/23 History tramadol 50 mg tablet 50 mg PO Q6 PRN Pain 01/24/23 01/24/23 History Patient History Medical History (Updated 01/24/23 @ 16:42 by Nimesh Alexander DO) Atrial fibrillation CVA (cerebrovascular accident) HLD (hyperlipidemia) HTN (hypertension), benign Lung cancer Surgical History (Updated 01/24/23 @ 16:28 by Reta Swan PA-C) H/O: hysterectomy Status post pneumonectomy Social History Smoking Status: Former smoker Tobacco Type: Cigarettes Second Hand Exposure: No; Do You Dip or Chew Tobacco: No; Tobacco Cessation Education Requested by Patient: No Hx Alcohol Use: No Hx Substance Use: No Preferred Language: Icelandic Communication Ability: Effective Child Protection Specialist Required: No Beliefs That Will Affect Care: None Current Living Situation: Spouse Other Information That Helps Us Care for You: No Feels Safe at Home: Yes Assistive Devices: None Physical Exam Constitutional: WD/WN, vitals as above Respiratory: normal respiratory effort, lungs clear to auscultation Cardiovascular: RRR, no murmur, no edema Gastrointestinal (Abdomen): normal bowel sounds, soft, nontender, no hepatosplenomegaly Skin: no rashes, warm and dry Psychiatric: Orientation: alert and oriented x 3 Results & Data ([facility]) Vital Signs (Past 12 Hours) Vital Signs Temp Pulse Pulse Resp BP BP Pulse Ox 01/25/23 08:21 36.6 C 64 19 153/57 H 97 01/25/23 01:58 36.4 C L 61 18 144/65 H 100 01/25/23 01:00 36.7 C 59 L 18 130/57 L 97 01/24/23 23:00 36.6 C 64 18 148/51 H 99 01/24/23 22:00 58 L 01/24/23 22:37 36.5 C 62 16 151/60 H 98 01/24/23 22:22 36.6 C 57 L 16 143/59 H 99 O2 Del Method O2 Flow Rate 01/25/23 08:21 Nasal Cannula 3.5 01/25/23 01:58 4 01/25/23 01:00 4 01/24/23 23:00 4 01/24/23 22:00 01/24/23 22:37 4 01/24/23 22:22 4 PG Care Time/CCT Total # of Minutes Spent Total Time Spent with Patient: Total time spent is greater than 50% in coordination of care (as documented) at patient's floor/unit and/or counseling patient: Coding Level of Care Code 94392 INT INP/OBS CARE 1/40MIN Diagnoses Symptomatic anemia D64.9 Time Spent (min) 40
--- NOTE | 2023-01-25 11:05 | Hospitalist Progress Note ---
Date of Service January 25, 2023 Assessment & Plan (1) GIB (gastrointestinal bleeding): Plan: Admitted to the hospital on account of AMS Found to have a Hb of 6.5, unclear baseline, on eliquis (however appears to be on higher dose than likely should given her age/weight/kidney function and should have been on 2.5mg BID) Positive stool occult blood Received 2 units of blood Repeat Hb today 9.5 GI consulted, had planned EGD, but patient declined Will continue Protonix IV Monitor h and H (2) H/O: HTN (hypertension): Plan: BP is under fair control Continue home meds (3) HLD (hyperlipidemia): Plan: atorvastastin 40mg daily (4) Diabetes mellitus: Plan: unknown baseline A1c, on insulin 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 Will check A1c w/ AM labs and check BSG AC/HS and place on SSI in meantime further adjustments as needed (5) Atrial fibrillation: Plan: on eliquis, held given GIB/anemia as above (6) Acute kidney injury: Plan: possible will hold lisinopril/lasix for now and monitor BMP (7) CVA (cerebrovascular accident): Plan: reported hx CVA, was on plavix but found to have afib and was switched to Eliquis per PCP in October Given age/weight/kidney function, appears to have been on 5mg BID and should have been on 2.5mg BID Mentation at baseline, no deficits on exam, (8) Hx of pneumonectomy: Plan: for lung ca in previous smoker, hasn't smoked in many years remains on inhaler daily, 4L [place] Does endorse SOB w/ ambulation, suspect due to underlying anemia monitor SOB symptoms w/ blood transfusion Plan Continue to monitor Admission and Anticipated Discharge Date Admission Date: January 24, 2023 Subjective patient seen and examined, she refused EGD Review of Systems Review of Systems: All systems reviewed are negative, apart from the ones contained in the history. Physical Exam Physical Exam: The patient is awake, alert and oriented 3, well developed and well nourished, normocephalic and atraumatic, lying in bed and in no acute distress. HEENT--PERRL, EOMI, mucous membranes and oropharynx mildly dry Neck--supple. No JVD. No bruits. Thyroid normal, trachea midline, no adenopathy. Heart--normal S1 and S2. No murmurs, rubs or gallops. Lungs--clear bilaterally, no respiratory distress, no accessory muscle use. Abdomen--normal bowel sounds and soft. Mild epigastric and left sided abdominal pain Extremities--no cyanosis or clubbing. No edema. Dermatologic--normal skin turgor, normal color, no abnormal lymph nodes, no sarah h. Neurologic--cranial nerves II through XII grossly intact. Rheumatologic--normal range of motion. Psychiatric--normal affect. Results & Data Results & Data ([facility]) Vital Signs (Past 12 Hours) Vital Signs Temp Pulse Pulse Resp BP BP Pulse Ox 01/25/23 09:51 01/25/23 08:21 97.9 F 64 19 153/57 H 97 01/25/23 01:58 97.5 F L 61 18 144/65 H 100 01/25/23 01:00 98.1 F 59 L 18 130/57 L 97 O2 Del Method O2 Flow Rate 01/25/23 09:51 Nasal Cannula 4 01/25/23 08:21 Nasal Cannula 3.5 01/25/23 01:58 4 01/25/23 01:00 4 PG Care Time/CCT Total # of Minutes Spent Total Time Spent with Patient: Total time spent is greater than 50% in coordination of care (as documented) at patient's floor/unit and/or counseling patient: Coding Level of Care Code 32156 SUB INP/OBS CARE 2/35MIN Diagnoses GIB (gastrointestinal bleeding) K92.2 H/O: HTN (hypertension) Z86.79 HLD (hyperlipidemia) E78.5 Diabetes mellitus E11.9 Atrial fibrillation I48.91 Acute kidney injury N17.9 CVA (cerebrovascular accident) I63.9 Hx of pneumonectomy Z98.890; Z90.2 Time Spent (min) 35
[2023-01-25] MEDS ORDERED: cefTRIAXone SODIUM 2,000 MG in DEXTROSE 5% 50 ML IV SCH (18:00)
[2023-01-25] MEDS ORDERED: cefTRIAXone SODIUM 1,000 MG in DEXTROSE 5% AD-VAN 50 ML IV SCH (18:00)
[2023-01-25] MEDS: dilTIAZem HCL 240 MG CAPCR PO SCH (20:00)
[2023-01-25] MEDS: ATORVASTATIN 40 MG TAB PO SCH (20:01)
[2023-01-26] MEDS: PANTOprazole 40 MG in DEXTROSE 5% 100 ML IV SCH ×2 (03:49→08:28)
[2023-01-26 06:42] LABS: Hematocrit (blood only) 30.4 % (37.0-47.0); Hemoglobin 9.8 g/dl (12.0-16.0); Mean Corpuscular Hemoglobin 27.4 pg (25.0-34.0); Mean Corpuscular Hgb Conc 32.2 g/dL (32.0-36.0); Mean Corpuscular Volume 84.9 fL (80.0-100.0); Mean Platelet Volume 10.6 fL (9.4-12.4); Nucleated RBC # (auto) 0.02 K/uL (0-0.12); Nucleated RBC % (auto) 0.1 %; Platelet Count 398 K/uL (130-400); Red Blood Count 3.58 M/uL (4.20-5.40)
[2023-01-26 07:00] LABS: BUN Creatinine Ratio 16.6 (10-20); Calcium 9.3 mg/dl (8.5-10.1); Est GFR (African American) 33.2 ml/min; Est GFR (Non-African American) 28.6 ml/min
[2023-01-26] MEDS: INSULIN ASPART PER UNIT SC SCH ×2 (08:28→12:21)
[2023-01-26] MEDS: UMECLIDINIUM/VILANTEROL 62.5/25MCG 7 PUFFS/INHALER INH SCH (08:28)
--- NOTE | 2023-01-26 10:03 | Communication Note ---
Date of Service: January 26, 2023 I went to see the patient this morning and GI ros are unremarkable. she tells me she is feeling well. she is again refusing an EGD. I had nursing witness her refusal. hgb did improve from 9.4 to 9.8 so no urgent need for endoscopy at this time.
--- NOTE | 2023-01-26 13:42 | Discharge Summary ---
Date of Service January 26, 2023 Admission HPI Per Admitting Provider 82yo female presented to the emergency department with two days of confusion w/ reported darkened stools on Eliquis. Hgb 6.5 on admission, unknown baseline. WBC 11.12 CXR w/ cardiomegaly with pulmonary vascular congestion, bilateral hilar prominence likely due to pulmonary vessels. Patient has been consented for blood, 2u ordered but not ready. Plan to give Lasix w/ blood given overload and tech getting second IV site. States followed w/ prosthodontist/educator for some time, kidney numbers vary but unknown baseline. She does endorse shortness of breath/chest discomfort with ambulation which has been going on for some time. States hx lung ca s/p resection, used to be a smoker. In remission. States she does chronically wear oxygen, 4L at baseline. Currently 100% on 4L. She does take Lasix 20mg twice daily but does not check her weights. She states she was previously on Plavix, history of stroke, but found to have afib and was switched from Plavix to Eliquis this past October. Noted last BM yesterday, chronic issues w/ bowel movements. 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 Daughter noted the darkened stools with bowel movement as she was cleaning up her potty chair. No abdominal pain, nausea/vomiting at present. She states currently she feels fine and is either "going to freeze to " or "starve to ". Discussed clear liquids for today and NPO at midnight and would like abdominal imaging for more information. questions/concerns addressed at this time. Principal Diagnosis anemia, UTI Discharge Exam The patient is awake, alert and oriented 3, well developed and well nourished, normocephalic and atraumatic, lying in bed and in no acute distress. HEENT--PERRL, EOMI, mucous membranes and oropharynx mildly dry Neck--supple. No JVD. No bruits. Thyroid normal, trachea midline, no adenopathy. Heart--normal S1 and S2. No murmurs, rubs or gallops. Lungs--clear bilaterally, no respiratory distress, no accessory muscle use. Abdomen--normal bowel sounds and soft. Mild epigastric and left sided abdominal pain Extremities--no cyanosis or clubbing. No edema. Dermatologic--normal skin turgor, normal color, no abnormal lymph nodes, no rash. Neurologic--cranial nerves II through XII grossly intact. Rheumatologic--normal range of motion. Psychiatric--normal affect. Discharge Data Allergies Allergy/AdvReac Type Severity Reaction Status Date / Time No Known Allergies Allergy Unverified 01/24/23 16:02 Consultations 01/24/23 14:54 ED Decision to Admit Stat 01/24/23 16:08 HIM [Consult Health Information Management] Routine 01/24/23 18:30 Consult Gastroenterology Routine Procedures Performed Operation Date: 01/25/23 17:25 <No data on this case meets the specified criteria> Ordered Studies 01/24/23 15:39 CT abd pelvis oral con only Urgent Hospital Course (1) GIB (gastrointestinal bleeding): Admitted to the hospital on account of AMS Found to have a Hb of 6.5, unclear baseline, on eliquis (however appears to be on higher dose than likely should given her age/weight/kidney function and should have been on 2.5mg BID) Positive stool occult blood Received 2 units of blood Repeat Hb today 9.5 GI consulted, had planned EGD, but patient declined (2) H/O: HTN (hypertension): BP is under fair control Continue home meds (3) HLD (hyperlipidemia): atorvastastin 40mg daily (4) Diabetes mellitus: unknown baseline A1c, on insulin 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 Will check A1c w/ AM labs and check BSG AC/HS and place on SSI in meantime further adjustments as needed (5) Atrial fibrillation: on eliquis, held given GIB/anemia as above (6) Acute kidney injury: possible will hold lisinopril/lasix for now and monitor BMP (7) CVA (cerebrovascular accident): reported hx CVA, was on plavix but found to have afib and was switched to Eliquis per PCP in October Given age/weight/kidney function, appears to have been on 5mg BID and should have been on 2.5mg BID Mentation at baseline, no deficits on exam, (8) Hx of pneumonectomy: for lung ca in previous smoker, hasn't smoked in many years remains on inhaler daily, 4L [place] Does endorse SOB w/ ambulation, suspect due to underlying anemia monitor SOB symptoms w/ blood transfusion (9) Acute UTI: urinalysis growing e cloaca will d/c on PO Levofloxacin for 5 days Plan Continue to monitor Total Time Total Time Spent Total Time Spent (In Minutes): 35 Discharge Plan Discharge Items Patient Disposition: Home - Self-Care Reason For Visit: AMS, POSSIBLE UTI Discharge Diagnosis: Anemia, UTI Activity: Resume your previous activity Non-emergency contact: Primary Care Provider Call non-emergency contact if: you have any medication questions Follow-up/Referrals: Mathew Perez DO [Primary Care Provider] - 02/06/23 11:30 am () Diet: Regular and Carb Consistent or DM2 Addtl Attending Provider Instructions: Please make appointment to establish care with a diabetes doctor ( Coin Machine Supervisor ) Pending Studies at Discharge: No Stand-Alone Forms: My Tripnary, Smoking Cessation Medications and DC Order Prescriptions: New glipizide 2.5 mg tablet extended release 24hr 2.5 mg PO DAILY Qty: 30 0RF levofloxacin 500 mg tablet 500 mg PO DAILY 5 Days Qty: 5 0RF pantoprazole [Protonix] 40 mg tablet,delayed release (DR/EC) 40 mg PO DAILY 28 Days Qty: 28 0RF Continued atorvastatin 40 mg tablet 40 mg PO HS diltiazem HCl [DILT-XR] 240 mg capsule,ext.rel 24h degradable 240 mg PO DAILY aspirin 81 mg Tablet,Delayed Release (Dr/Ec) 81 mg PO DAILY tramadol 50 mg tablet 50 mg PO Q6 PRN (Reason: Pain) acetaminophen [Tylenol Extra Strength] 500 mg Tablet 1,000 mg PO Q6H PRN (Reason: Pain) alprazolam 0.5 mg tablet 0.5 mg PO TID PRN (Reason: Anxiety) potassium 99 mg Tablet 99 mg PO DAILY cyanocobalamin (vitamin B-12) 1,000 mcg/mL Solution 0 mcg SUBCUT MO lisinopril 5 mg tablet 5 mg PO DAILY furosemide 20 mg tablet 20 mg PO BID insulin aspart U-100 [Novolog FlexPen U-100 Insulin] 100 unit/mL (3 mL) insulin pen 0 unit SUBCUT TIDM Rx Instructions: Per sliding scale cholecalciferol (vitamin D3) [Vitamin D3] 25 mcg (1,000 unit) Tablet 0 mcg PO DAILY Eliquis 5 mg tablet 5 mg PO BID Bevespi Aerosphere 9-4.8 mcg HFA aerosol inhaler 2 puff INHALATION BID Discharge Orders: Discharge Order (Routine); Ordered 01/26/23 Ordered By: Alexys Oseguera Admission Data Admit Date/Time: 01/24/23 16:19 Attending Provider: Alexys Oseguera Admit Provider: Raoul Bird Primary Care Provider: Mathew Perez Other Providers: Raoul Bird ; [employer] Coding Level of Care Code 97880 INP/OBS DISCH >30 MIN Diagnoses GIB (gastrointestinal bleeding) K92.2 H/O: HTN (hypertension) Z86.79 HLD (hyperlipidemia) E78.5 Diabetes mellitus E11.9 Atrial fibrillation I48.91 Acute kidney injury N17.9 CVA (cerebrovascular accident) I63.9 Hx of pneumonectomy Z98.890; Z90.2 Acute UTI N39.0 Time Spent (min) 35
--- NOTE | 2023-01-27 05:33 | Electrocardiogram Report ---
Test Reason : Blood Pressure : / mmHG Vent. Rate : 090 BPM Atrial Rate : 090 BPM P-R Int : 128 ms QRS Dur : 152 ms QT Int : 390 ms P-R-T Axes : 105 203 -45 degrees QTc Int : 477 ms Suspect arm lead reversal, interpretation assumes no reversal Sinus rhythm with Premature atrial complexes Right bundle branch block T wave abnormality, consider inferolateral ischemia Abnormal ECG When compared with ECG of 24-JAN-2023 13:54, Premature atrial complexes are now Present Inverted T waves have replaced nonspecific T wave abnormality in Anterolateral leads Confirmed by Arun Bennett ([id number]) on 01/27/2023 5:33:08 AM Referred By: REFERRED SELF Confirmed By:Arun Bennett
--- NOTE | 2023-01-30 08:18 | Coding Query ---
ANEMIA To promote full compliance with coding requirements relating to patient care, physician participation is requested in all cases of card cutter helper uncertainty. Please assist us with the question(s) below: Coding Question(s): The record reflects the following clinical findings:Pt admitted with suspect gastrointestinal hemorrhage. Pt refused colonoscopy. HGB 6.5 . Pt transfused with 2 UPC's. thanks for your help! Colin Hampton, FORMING ROLL OPERATOR [facility] If these findings are indicative of anemia, please specify the known or suspected type by placing an "X" within the parenthesis (x). If other, please document type. Examples are: ( ) Acute blood loss anemia ( ) Acute Postoperative blood loss anemia ( ) Acute postoperative anemia due to dilutional fluids ( ) Chronic blood loss anemia ( ) Anemia of chronic disease ( ) Aplastic anemia ( ) Anemia due to renal disease ( ) Anemia in neoplastic disease ( ) Iron deficient anemia ( ) Anemia, unspecified or other ( ) Other: (please specify) ( x) Unable to determine MTDD
== END 2023-01-26 14:16 | disposition home or self-care (01) ==
LOC: ED 13:15 → INTOOBSV 16:19 → SUATTDRO 16:19 → 4W 16:19

== ENCOUNTER 2023-03-08 12:09 | Observation (INO) ==
[2023-03-08] MEDS ORDERED: SODIUM CHLORIDE 0.9% 250 ML IV PRN ×3 (12:56→16:44)
--- NOTE | 2023-03-08 13:12 | Emergency Department Note ---
Impression & Plan Acute blood loss anemia, GIB (gastrointestinal bleeding), Iron deficiency ED Provider Note NAME: TOOTIE HERMOSILLO AGE: 82 SEX: F ARRIVES VIA: Walk-In INFORMANT: Patient ED PROVIDER(S): Michael Echavarria MD CHIEF COMPLAINT: Anemia, referred. PLAN: Disposition: Admit MEDICAL DECISION MAKING: The patient is a pleasant 82-year-old woman with a past medical history of anemia suspected be related to GI bleed with recent hospitalization for this, hypertension, hyperlipidemia, atrial fibrillation on Eliquis, COPD on 4 L home oxygen who presents to the emergency department accompanied by her daughter via walk-in, referred by her PCPs office after having outpatient blood work last week that was reviewed today and demonstrated decline in her H&H since she was a dmitted to this facility several weeks ago with hemoglobin of 6.8 and received blood transfusion. The describes that the patient declined endoscopy at that time and continues to decline further evaluation for this. She further adds upon initial conversation that she does not want to be admitted. She does consent for blood transfusion if indicated by her blood work. She reports feeling generalized weakness but denies any new shortness of breath, cough or congestion, GI or symptoms. She reports her stool is sometimes dark/black but then other times brown. She denies any gross blood in her stool. On arrival the patient is no acute distress, afebrile with stable vital signs. He has wheeze of bilateral lung solis with normal respiratory effort in the setting of her COPD. WBC and platelets within normal limits. H/H 6.1/20.3 down from a hemoglobin last week which the patient and daughter report was 7.3. Hemoglobin was 9.8 following her discharge on January 26. MCV is normocytic. Creatinine 1.3 approximately 2 prior range values in the setting of CKD. LFTs unremarkable. TSH within normal limits. Iron is noted to be low at 28. COVID-19 RNA, SIM test was negative. Patient ordered initial transfusion for 1 unit of PRBCs after receiving consent. However given her low hemoglobin will require additional transfusion. And so patient was cross for additional 2 units of PRBCs. Ultimately patient was in agreement with plan for admission for blood transfusion. She still however reports that she would not want endoscopy. Case was discussed with Veronika Meredith [facility] with Dr. Hernandez, [facility] hospitalist, who will evaluate the patient for admission. Triage Nursing notes reviewed and agree them. Prior/outside medical records reviewed Vital Signs: reviewed Differential diagnosis: Diverticulosis, AVM, coagulopathy, colitis, inflammatory bowel disease, malignancy, Edna-Stout tear, esophagitis, peptic ulcer disease, variceal bleed, gastritis, epistaxis, fissure, hemorrhoids, as well as other pathologies. ER treatment provided: See below. Diagnostics interpreted by me: ECG: Normal sinus rhythm, 68 bpm, right bundle branch block, T wave abnormality, no overt ST elevation or depression, QTc 467, QRS 152. Cardiac Monitoring: An order for continuous cardiac monitoring was placed and de monstrated Normal sinus rhythm, 68 bpm, no ectopy. Laboratory studies: See below Imaging studies: See below Consultation(s): Case was discussed with Veronika Meredith [facility] with Dr. Hernandez, [facility] hospitalist, who will evaluate the patient for admission. HPI: The patient is a pleasant 82-year-old woman with a past medical history of anemia suspected be related to GI bleed with recent hospitalization for this, hypertension, hyperlipidemia, atrial fibrillation on Eliquis, COPD on 4 L home oxygen who presents to the emergency department accompanied by her daughter via walk-in, referred by her PCPs office after having outpatient blood work last week that was reviewed today and demonstrated decline in her H&H since she was admitted to this facility several weeks ago with hemoglobin of 6.8 and received blood transfusion. The describes that the patient declined endoscopy at that time and continues to decline further evaluation for this. She further adds upon initial conversation that she does not want to be admitted. She does consent for blood transfusion if indicated by her blood work. She reports feeling generalized weakness but denies any new shortness of breath, cough or congestion, GI or symptoms. She reports her stool is sometimes dark/black but then other times brown. She denies any gross blood in her stool. ROS: See above HPI for pertinent positives & negatives. A total of 10 systems reviewed and were otherwise negative. VITALS:See Below PHYSICAL EXAMINATION: GENERAL: Awake, alert, fatigued-appearing, in no distress HENT: Normocephalic, atraumatic. Oropharynx with dry mucous membranes and otherwise unremarkable. EYES: Normal conjunctiva. Sclera non-icteric. NECK: Supple. No nuchal rigidity. FROM. No JVD. RESPIRATORY: Wheezes of bilateral lung solis in the setting of COPD with normal respiratory effort. CARDIAC: Regular rate, normal rhythm. Extremities warm and well perfused. Pulses equal. ABDOMEN: Soft, non-distended. No tenderness to palpation. No rebound or guarding. No masses. RECTAL: Deferred. MUSCULOSKELETAL: Chest examination reveals no tenderness. The back is symmetrical on inspection without obvious abnormality. There is no CVA tenderness to palpation. No joint edema. LOWER EXTREMITIES: Calves are equal size bilaterally and non-tender. No edema. No discoloration. NEURO: Normal sensorium. No sensory or motor deficits noted. SKIN: No rash or jaundice noted. ED COURSE: Critical Care: I have personally spent greater than 45 minutes of critical care time in the direct management of this patient. This includes bedside care, interpretation of diagnostic studies, and testing, discussion with consultants, patient, and family members, and other required patient management activities. This 45 minutes is in excess of all separately billable procedures. Michael Echavarria MD Past Med/Surg History Medical History (Updated 03/08/23 @ 23:16 by Michael Echavarria MD) Atrial fibrillation CVA (cerebrovascular accident) HLD (hyperlipidemia) HTN (hypertension), benign Lung cancer Surgical History (Updated 01/24/23 @ 16:28 by Reta Swan PA-C) H/O: hysterectomy Status post pneumonectomy Social History Smoking Status: Never smoker Tobacco Type: Cigarettes Second Hand Exposure: No; Hx Alcohol Use: No Hx Substance Use: No Preferred Language: Swedish Communication Ability: Effective Pot Filler Required: No Beliefs That Will Affect Care: None Current Living Situation: Spouse Feels Safe at Home: Yes Assistive Devices: None Allergies Allergies Allergy/AdvReac Type Severity Reaction Status Date / Time No Known Allergies Allergy Unverified 03/08/23 14:21 Home Meds Home Medications Medication Instructions Recorded Confirmed acetaminophen 500 mg tablet 1,000 mg PO Q6H PRN Pain 01/24/23 03/08/23 (Tylenol Extra Strength) alprazolam 0.5 mg tablet 0.5 mg PO TID PRN Anxiety 01/24/23 03/08/23 apixaban 5 mg tablet (Eliquis) 5 mg PO BID 01/24/23 03/08/23 aspirin 81 mg tablet,delayed 81 mg PO DAILY 01/24/23 03/08/23 release atorvastatin 40 mg tablet 40 mg PO HS 01/24/23 03/08/23 cholecalciferol (vitamin D3) 25 0 mcg PO DAILY 01/24/23 03/08/23 mcg (1,000 unit) tablet (Vitamin D3) cyanocobalamin (vitamin B-12) 1,000 mcg subcut MO 01/24/23 03/08/23 1,000 mcg/mL injection solution diltiazem HCl 240 mg 240 mg PO QPM 01/24/23 03/08/23 capsule,extended release 24 hr, controlled (DILT-XR) furosemide 20 mg tablet 20 mg PO BID 01/24/23 03/08/23 glycopyrrolate 9 mcg-formoterol 2 puff inhalation BID 01/24/23 03/08/23 4.8 mcg HFA aerosol inhaler (Bevespi Aerosphere) lisinopril 5 mg tablet 5 mg PO DAILY 01/24/23 03/08/23 potassium 99 mg tablet 99 mg PO DAILY 01/24/23 03/08/23 tramadol 50 mg tablet 50 mg PO Q6 PRN Pain 01/24/23 03/08/23 doxazosin 4 mg tablet 4 mg PO HS 03/08/23 03/08/23 glipizide 5 mg tablet 5 mg PO DAILY 03/08/23 03/08/23 Results & Data (ED) Vital Signs Vital Signs - 24 hr 03/08/23 12:10 03/08/23 12:35 03/08/23 13:00 Temperature 36.5 C Temperature Source Temporal Artery Scan Pulse Rate 72 65 Pulse Rate [Apical] 69 Pulse Rate from SpO2 Sensor Pulse Rhythm Regular Pulse Rhythm [Apical] Regular Pulse Strength Pulse Strength [Apical] Normal Respiratory Rate 20 21 18 Respiratory Effort / Characteristics Non-Labored Spontaneous Non-Labored Spontaneous Respiratory Depth Normal Normal Respiratory Pattern Regular Regular Blood Pressure 144/65 H Blood Pressure [Right Arm] 142/60 H Blood Pressure Mean 91 Blood Pressure Mean [Right Arm] 87 Blood Pressure Position Pulse Oximetry 90 98 95 Oxygen Delivery Method Nasal Cannula Nasal Cannula Nasal Cannula Oxygen Flow Rate 4 4 4 Sepsis Recent Fever Within 48 Hours No Sepsis New/Unexplained Change in Mental Status No Sepsis Action Taken by Nursing No Action Required 03/08/23 12:35 03/08/23 12:40 03/08/23 12:50 Temperature Temperature Source Pulse Rate Pulse Rate [Apical] Pulse Rate from SpO2 Sensor Pulse Rhythm Pulse Rhythm [Apical] Pulse Strength Pulse Strength [Apical] Respiratory Rate Respiratory Effort / Characteristics Respiratory Depth Respiratory Pattern Blood Pressure Blood Pressure [Right Arm] Blood Pressure Mean Blood Pressure Mean [Right Arm] Blood Pressure Position Pulse Oximetry 98 99 100 Oxygen Delivery Method Oxygen Flow Rate Sepsis Recent Fever Within 48 Hours Sepsis New/Unexplained Change in Mental Status Sepsis Action Taken by Nursing 03/08/23 13:00 03/08/23 13:00 03/08/23 13:30 Temperature Temperature Source Pulse Rate 63 63 65 Pulse Rate [Apical] Pulse Rate from SpO2 Sensor 62 62 66 Pulse Rhythm Pulse Rhythm [Apical] Pulse Strength Pulse Strength [Apical] Respiratory Rate 20 24 19 Respiratory Effort / Characteristics Respiratory Depth Respiratory Pattern Blood Pressure 143/70 H 136/44 L Blood Pressure [Right Arm] Blood Pressure Mean 94 74 Blood Pressure Mean [Right Arm] Blood Pressure Position Pulse Oximetry 99 Oxygen Delivery Method Oxygen Flow Rate Sepsis Recent Fever Within 48 Hours Sepsis New/Unexplained Change in Mental Status Sepsis Action Taken by Nursing 03/08/23 14:57 03/08/23 15:12 03/08/23 15:15 Temperature 36.7 C 36.6 C 36.6 C Temperature Source Oral Oral Oral Pulse Rate 71 73 67 Pulse Rate [Apical] Pulse Rate from SpO2 Sensor Pulse Rhythm Regular Pulse Rhythm [Apical] Pulse Strength Normal Pulse Strength [Apical] Respiratory Rate 18 18 20 Respiratory Effort / Characteristics Respiratory Depth Respiratory Pattern Blood Pressure 127/61 142/88 H 145/71 H Blood Pressure [Right Arm] Blood Pressure Mean 83 106 95 Blood Pressure Mean [Right Arm] Blood Pressure Position Sitting Pulse Oximetry 100 97 99 Oxygen Delivery Method Oxygen Flow Rate 4 4 4 Sepsis Recent Fever Within 48 Hours Sepsis New/Unexplained Change in Mental Status Sepsis Action Taken by Nursing 03/08/23 15:30 03/08/23 15:45 03/08/23 16:00 Temperature 36.7 C 36.7 C 36.7 C Temperature Source Oral Oral Oral Pulse Rate 75 67 66 Pulse Rate [Apical] Pulse Rate from SpO2 Sensor Pulse Rhythm Regular Regular Regular Pulse Rhythm [Apical] Pulse Strength Normal Normal Normal Pulse Strength [Apical] Respiratory Rate 20 17 19 Respiratory Effort / Characteristics Respiratory Depth Respiratory Pattern Blood Pressure 150/63 H 139/68 123/53 L Blood Pressure [Right Arm] Blood Pressure Mean 92 91 76 Blood Pressure Mean [Right Arm] Blood Pressure Position Sitting Sitting Sitting Pulse Oximetry 100 100 99 Oxygen Delivery Method Oxygen Flow Rate 4 4 4 Sepsis Recent Fever Within 48 Hours Sepsis New/Unexplained Change in Mental Status Sepsis Action Taken by Nursing 03/08/23 16:30 03/08/23 17:00 03/08/23 17:15 Temperature 36.6 C 36.8 C Temperature Source Oral Oral Pulse Rate 72 76 70 Pulse Rate [Apical] Pulse Rate from SpO2 Sensor Pulse Rhythm Regular Pulse Rhythm [Apical] Pulse Strength Normal Pulse Strength [Apical] Respiratory Rate 22 22 20 Respiratory Effort / Characteristics Respiratory Depth Respiratory Pattern Blood Pressure 127/57 L 138/58 L 130/54 L Blood Pressure [Right Arm] Blood Pressure Mean 80 84 79 Blood Pressure Mean [Right Arm] Blood Pressure Position Sitting Sitting Pulse Oximetry 100 98 99 Oxygen Delivery Method Oxygen Flow Rate 4 Sepsis Recent Fever Within 48 Hours Sepsis New/Unexplained Change in Mental Status Sepsis Action Taken by Nursing Laboratory Data Attestation: I reviewed the patient's lab results. 03/08/23 12:55 03/08/23 12:55 Lab Results 03/08/23 03/08/23 03/08/23 Range/Units 12:55 12:55 12:55 WBC 10.49 (4.8-10.8) K/ul RBC 2.31 L (4.20-5.40) M/uL Hgb 6.1 L* (12.0-16.0) g/dl Hct 20.3 L* (37.0-47.0) % MCV 87.9 (80.0-100.0) fL MCH 26.4 (25.0-34.0) pg MCHC 30.0 L (32.0-36.0) g/dL RDW Std Deviation 64.9 H (36.4-46.3) fL RDW Coeff of Bimal 20.4 H (11.5-14.5) % Plt Count 309 (130-400) K/uL MPV 10.1 (9.4-12.4) fL Immature Gran % (Auto) 0.6 % Neut % (Auto) 81.8 % Lymph % (Auto) 11.1 % [place] % (Auto) 4.9 % Eos % (Auto) 0.9 % Baso % (Auto) 0.7 % Reticulocyte % (Auto) 5.0 H (0.5-2.0) % Neut # (Auto) 8.60 H (1.40-6.50) K/uL Lymph # (Auto) 1.16 L (1.2-3.4) K/uL [place] # (Auto) 0.51 (0.11-0.59) K/uL Eos # (Auto) 0.09 (0-0.50) K/uL Baso # (Auto) 0.07 (0-0.2) K/uL Reticulocyte # 0.11 H (0.02-0.10) 10^6/uL Immature Gran # (Auto) 0.06 (0.01-0.20) K/uL Polychromasia 1+ Anisocytosis Present Ovalocytes 1+ Acanthocytes (Spur) 2+ Sodium 140 (136-145) mmol/L Potassium 3.9 (3.5-5.1) mmol/L Chloride 104 (98-107) mmol/L Carbon Dioxide 29 (21-32) mmol/L Anion Gap 7 (3-11) BUN 64 H (6-23) mg/dl Creatinine 1.93 H (0.6-1.2) mg/dl Est Cr Clr Drug Dosing 21.1 ml/min Est GFR ( Amer) 27.1 ml/min Est GFR (Non-Af Amer) 23.3 ml/min BUN/Creatinine Ratio 33.2 H (10-20) Glucose 205 H (70-99(Fasting)) mg/dl Calcium 10.0 (8.6-10.3) mg/dl Magnesium 2.1 (1.7-2.4) mg/dl Iron 20 L (35-150) mcg/dl Unsaturated IBC 344 (155-355) mcg/dl Transferrin 287 (200-360) mg/dl Ferritin 15.3 (8-388) ng/ml Total Bilirubin 0.5 (0.2-1.0) mg/dl AST 14 (13-39) U/L ALT 14 (7-52) U/L Alkaline Phosphatase 52 (34-104) U/L Total Protein 5.9 L (6.0-8.3) gm/dl Albumin 4.1 (3.4-5.0) gm/dl Globulin 1.8 L (2.5-4.0) gm/dl Albumin/Globulin Ratio 2.3 H (0.9-2) TSH 4.408 (0.300-4.500) uIu/ml SARS-CoV-2, RNA, NAAT (NEGATIVE) Blood Type Antibody Screen Crossmatch 03/08/23 03/08/23 Range/Units 13:07 13:30 WBC (4.8-10.8) K/ul RBC (4.20-5.40) M/uL Hgb (12.0-16.0) g/dl Hct (37.0-47.0) % MCV (80.0-100.0) fL MCH (25.0-34.0) pg MCHC (32.0-36.0) g/dL RDW Std Deviation (36.4-46.3) fL RDW Coeff of Bimal (11.5-14.5) % Plt Count (130-400) K/uL MPV (9.4-12.4) fL Immature Gran % (Auto) % Neut % (Auto) % Lymph % (Auto) % [place] % (Auto) % Eos % (Auto) % Baso % (Auto) % Reticulocyte % (Auto) (0.5-2.0) % Neut # (Auto) (1.40-6.50) K/uL Lymph # (Auto) (1.2-3.4) K/uL [place] # (Auto) (0.11-0.59) K/uL Eos # (Auto) (0-0.50) K/uL Baso # (Auto) (0-0.2) K/uL Reticulocyte # (0.02-0.10) 10^6/uL Immature Gran # (Auto) (0.01-0.20) K/uL Polychromasia Anisocytosis Ovalocytes Acanthocytes (Spur) Sodium (136-145) mmol/L Potassium (3.5-5.1) mmol/L Chloride (98-107) mmol/L Carbon Dioxide (21-32) mmol/L Anion Gap (3-11) BUN (6-23) mg/dl Creatinine (0.6-1.2) mg/dl Est Cr Clr Drug Dosing ml/min Est GFR ( Amer) ml/min Est GFR (Non-Af Amer) ml/min BUN/Creatinine Ratio (10-20) Glucose (70-99(Fasting)) mg/dl Calcium (8.6-10.3) mg/dl Magnesium (1.7-2.4) mg/dl Iron (35-150) mcg/dl Unsaturated IBC (155-355) mcg/dl Transferrin (200-360) mg/dl Ferritin (8-388) ng/ml Total Bilirubin (0.2-1.0) mg/dl AST (13-39) U/L ALT (7-52) U/L Alkaline Phosphatase (34-104) U/L Total Protein (6.0-8.3) gm/dl Albumin (3.4-5.0) gm/dl Globulin (2.5-4.0) gm/dl Albumin/Globulin Ratio (0.9-2) TSH (0.300-4.500) uIu/ml SARS-CoV-2, RNA, NAAT NEGATIVE (NEGATIVE) Blood Type A Positive Antibody Screen NEGATIVE Crossmatch See Detail Administered Medications Atorvastatin Calcium (Atorvastatin 40 Mg Tab) 40 mg PO HS KERWIN Stop: 04/07/23 20:59 Last Admin: 03/08/23 20:43 Dose: 40 mg Documented By: CATALINO Diltiazem HCl (Diltiazem Hcl 240 Mg Capcr) 240 mg PO QPM KERWIN Stop: 04/07/23 20:59 Last Admin: 03/08/23 20:43 Dose: 240 mg Documented By: CATALINO Doxazosin Mesylate (Doxazosin Mesylate 4 Mg Tab) 4 mg PO HS KERWIN Stop: 04/07/23 20:59 Last Admin: 03/08/23 20:43 Dose: 4 mg Documented By: CATALINO Furosemide (Furosemide 20 Mg Tab) 20 mg PO BID KERWIN Stop: 04/07/23 20:59 Last Admin: 03/08/23 20:45 Dose: Not Given Documented By: CATALINO Discontinued Medications Pantoprazole Sodium (Protonix Bolus/Drip) 0 mls @ 1 mls/hr IV ONE STA Stop: 03/08/23 13:54 Last Admin: 03/08/23 15:04 Dose: Not Given Documented By: YAJAIRA Pantoprazole Sodium 80 mg/ (Dextrose) 120 mls @ 400 mls/hr IV NOW ONE Stop: 03/08/23 14:10 Last Infusion: 03/08/23 15:01 Dose: 0 mls/hr Documented By: Admin: 03/08/23 14:46 Dose: 400 mls/hr Documented By: YESSI Pantoprazole Sodium 40 mg/ (Dextrose) 100 mls @ 20 mls/hr IV Q5H KERWIN Stop: 03/08/23 21:00 Last Admin: 03/08/23 20:42 Dose: 8 mg/hr, 20 mls/hr Documented By: Infusion: 03/08/23 20:03 Dose: 8 mg/hr, 20 mls/hr Documented By: Admin: 03/08/23 15:03 Dose: 8 mg/hr, 20 mls/hr Documented By: YAJAIRA Imaging Data Radiologist's Impression: Chest X-Ray 03/08/23 12:57 XR chest 1V portable CLINICAL HISTORY: weakness TECHNIQUE: Single frontal radiograph of the chest was obtained. Comparison: Comparison is made to chest radiograph 01/24/2023 FINDINGS: No lines and tubes are seen. Cardiomegaly is noted. The aortic arch is calcified. Prominence and cephalization of the vasculature is seen. Bilateral hilar prominence is again seen likely due to pulmonary vasculature. No evidence of pleural effusion or pneumothorax. IMPRESSION: Cardiomegaly and mild pulmonary edema. ACT 112: Negative or not required by law. Electronically signed by: Davonte Darnell M.D. 03/08/2023 1:39 PM Discharge Plan Visit Data Chief Complaint: Referred by Doctor Stated Complaint: BLOOD DRAW LAST WEEK,WEAKNESS,DOC REF ED Provider: Michael Echavarria Discharge Problem: Acute blood loss anemia, GIB (gastrointestinal bleeding), Iron deficiency Patient Disposition: Admitted As Inpatient Discharge Instructions Interventions: ED Discharge Assessment Last Done: 03/08/23 19:15
[2023-03-08 13:23] LABS: Albumin Level 4.1 gm/dl (3.4-5.0); Bilirubin,Total 0.5 mg/dl (0.2-1.0); Magnesium 2.1 mg/dl (1.7-2.4); Potassium 3.9 mmol/L (3.5-5.1)
[2023-03-08 13:29] LABS: Albumin Globulin Ratio 2.3 (0.9-2); BUN Creatinine Ratio 33.2 (10-20); Creatinine Clr Calc Pharmacy 21.1 ml/min; Est GFR (African American) 27.1 ml/min; Est GFR (Non-African American) 23.3 ml/min; Globulin 1.8 gm/dl (2.5-4.0); Total Protein 5.9 gm/dl (6.0-8.3)
--- NOTE | 2023-03-08 13:41 | XRay Report ---
XR chest 1V portable CLINICAL HISTORY: weakness TECHNIQUE: Single frontal radiograph of the chest was obtained. Comparison: Comparison is made to chest radiograph 01/24/2023 FINDINGS: No lines and tubes are seen. Cardiomegaly is noted. The aortic arch is calcified. Prominence and ceph alization of the vasculature is seen. Bilateral hilar prominence is again seen likely due to pulmonar y vasculature. No evidence of pleural effusion or pneumothorax. IMPRESSION: Cardiomegaly and mild pulmonary edema. ACT 112: Negative or not required by law. Electronically signed by: Davonte Darnell M.D. 03/08/2023 1:39 PM
[2023-03-08 13:45] LABS: Hematocrit (blood only) 20.3 % (37.0-47.0); Hemoglobin 6.1 g/dl (12.0-16.0); Mean Corpuscular Hemoglobin 26.4 pg (25.0-34.0); Mean Corpuscular Volume 87.9 fL (80.0-100.0); Mean Platelet Volume 10.1 fL (9.4-12.4); Platelet Count 309 K/uL (130-400); RDW Coefficient of Variation 20.4 % (11.5-14.5); RDW Standard Deviation 64.9 fL (36.4-46.3); Red Blood Count 2.31 M/uL (4.20-5.40); White Blood Count 10.49 K/ul (4.8-10.8)
[2023-03-08 13:47] LABS: Ferritin 15.3 ng/ml (8-388)
[2023-03-08] MEDS ORDERED: PANTOprazole 80 MG in DEXTROSE 5% 100 ML IV ONE (13:53)
[2023-03-08] MEDS ORDERED: PANTOPRAZOLE BOLUS/DRIP 1 EACH IV STA (13:53)
[2023-03-08 14:01] LABS: Acanthocytes 2+; Anisocytosis Present; Basophils # (auto) 0.07 K/uL (0-0.2); Basophils % (auto) 0.7 %; Eosinophils # (auto) 0.09 K/uL (0-0.50); Eosinophils % (auto) 0.9 %; Immature Granulocytes # (auto) 0.06 K/uL (0.01-0.20); Immature Granulocytes % (auto) 0.6 %; Lymphocytes # (auto) 1.16 K/uL (1.2-3.4); Lymphocytes % (auto) 11.1 %; Monocytes # (auto) 0.51 K/uL (0.11-0.59); Monocytes % (auto) 4.9 %; Neutrophils % (auto) 81.8 %; Ovalocytes 1+; Polychromasia 1+; Reticulocytes # 0.11 10^6/uL (0.02-0.10)
[2023-03-08] MEDS: PANTOprazole 40 MG in DEXTROSE 5% 100 ML IV SCH ×2 (15:03→20:42)
--- NOTE | 2023-03-08 17:41 | History & Physical Report ---
Date of Service March 08, 2023 Assessment & Plan (1) Acute blood loss anemia: Plan: 82 yo F with a h/o afib on chronic ACT with Eliquis Acute/unstable - Admit to med tele - Diabetic diet - Reviewed CBC, hgb 6.1/hct 20.3 - T&C and transfusion ordered for 1 unit of blood and 2 more units on hold - Obtain H&H @ 1800 (after 1st unit) and again after 2nd unit - Transfuse 2nd unit after H&H back/reviewed, anticipate will require 3rd unit as well - Hold Eliquis and Aspirin - Discussed with patient again re: endoscopy, she continues to refuse this procedure - Given her continued refusal, will not consult GI team - Did broach the subject of palliative med eval/hospice - Daughter who is at bedside states that "she's not there yet" - Ordered Protonix bolus and drip, will d/c drip this evening and convert to 40mg IV BID (2) CKD (chronic kidney disease): Plan: Stage 4 CKD with baseline creatinine ~1.5 Acute on chronic/unstable - CMP reviewed, creatinine 1.93, likely due to hypoperfusion - Transfuse as outlined above - Hold Lisinopril (3) Atrial fibrillation: Plan: Chronic/stable - Currently examines in NSR - Stop Eliquis as above - Thoroughly discussed increased risk of stroke with patient and daughter, they understand and are agreeable to stopping med - This should not be resumed upon discharge - Continue Diltazem XR 240mg qHS (4) HLD (hyperlipidemia): Plan: Chronic/stable - Continue Atorvastatin (5) Diabetes mellitus: Plan: Chronic/stable - Currently on Glipizide 5mg daily at home - Perform accuchecks AC and HS - Add coverage for BSG>180 - Patient is not keen on receiving insulin (6) HTN (hypertension), benign: Plan: Chronic/stable - Continue Doxazosin, Diltiazem - Hold Lisinopril d/t JALIL on CKD as above (7) COPD (chronic obstructive pulmonary disease): Plan: End-stage, both 4L O2 and BiPAP (at HS) dependent, h/o lung ca s/p R LLobectomy - Continue supplemental O2 and HS BiPAP - Continue inhalers Plan No chemoprophylaxis in setting of acute blood loss anemia. SCDs b/l will suffice. Above plan of care has been d/w Dr. Hernandez who has also seen and evaluated this patient. Further orders will be implemented as warranted. History of Present Illness Chief Complaint: Low blood count Primary Care Provider: Mathew Perez DO Karime Elam is an 82 yo F with a pmhx of end stage, oxygen/bipap dependent COPD, CKD, h/o lung cancer s/p lobectomy, who presented to the ER today referred by her PCP due to low blood counts. Patient was hospitalized 01/24 through 01/26 for acute blood loss anemia, requiring transfusion, with suspected upper GI bleed. Unfortunately, during that hospitalization, the patient refused endoscopy. She has a h/o atrial fibrillation for which she takes Eliquis. This medication was held during her last admission but appears to have been resumed upon discharge. She is also taking Aspirin 81mg daily. She reports some instances of black stools but other times reports it is brown. Denies BRBPR. She denies abdominal pain, n/v, unintentional weight loss, or early satiety. She notes that she was ordered follow up bloodwork at the time of discharge on 01/26 that she just had completed about one week ago. She was contacted by her PCP and informed that her blood counts were low and was encouraged to seek treatment in the ER. Patient notes that she has been fatigued, increasingly short of breath, and weak. Her CBC today shows a hemoglobin of 6.1. She continues to adamantly refused endoscopy, stating that she is "ready to ." She states that she is agreeable to receiving blood products this time, but after this hospital stay, she will not return. She denies chest pain and is presently comfortable without complaints. Allergies Allergy/AdvReac Type Severity Reaction Status Date / Time No Known Allergies Allergy Unverified 03/08/23 14:21 Home Medications Medication Instructions Recorded Confirmed Type acetaminophen 500 mg tablet 1,000 mg PO Q6H PRN Pain 01/24/23 03/08/23 History (Tylenol Extra Strength) alprazolam 0.5 mg tablet 0.5 mg PO TID PRN Anxiety 01/24/23 03/08/23 History apixaban 5 mg tablet (Eliquis) 5 mg PO BID 01/24/23 03/08/23 History aspirin 81 mg tablet,delayed 81 mg PO DAILY 01/24/23 03/08/23 History release atorvastatin 40 mg tablet 40 mg PO HS 01/24/23 03/08/23 History cholecalciferol (vitamin D3) 25 0 mcg PO DAILY 01/24/23 03/08/23 History mcg (1,000 unit) tablet (Vitamin D3) cyanocobalamin (vitamin B-12) 1,000 mcg subcut MO 01/24/23 03/08/23 History 1,000 mcg/mL injection solution diltiazem HCl 240 mg 240 mg PO QPM 01/24/23 03/08/23 History capsule,extended release 24 hr, controlled (DILT-XR) furosemide 20 mg tablet 20 mg PO BID 01/24/23 03/08/23 History glycopyrrolate 9 mcg-formoterol 2 puff inhalation BID 01/24/23 03/08/23 History 4.8 mcg HFA aerosol inhaler (Bevespi Aerosphere) lisinopril 5 mg tablet 5 mg PO DAILY 01/24/23 03/08/23 History potassium 99 mg tablet 99 mg PO DAILY 01/24/23 03/08/23 History tramadol 50 mg tablet 50 mg PO Q6 PRN Pain 01/24/23 03/08/23 History doxazosin 4 mg tablet 4 mg PO HS 03/08/23 03/08/23 History glipizide 5 mg tablet 5 mg PO DAILY 03/08/23 03/08/23 History Past Med/Surg History Medical History (Updated 03/08/23 @ 18:00 by Veronika Meredith PA-C) Atrial fibrillation CVA (cerebrovascular accident) HLD (hyperlipidemia) HTN (hypertension), benign Lung cancer Surgical History (Updated 01/24/23 @ 16:28 by Reta Swan PA-C) H/O: hysterectomy Status post pneumonectomy Social History Smoking Status: Never smoker Tobacco Type: Cigarettes Second Hand Exposure: No; Hx Alcohol Use: No Hx Substance Use: No Preferred Language: Arabic Communication Ability: Effective Test Engine Mechanic Required: No Beliefs That Will Affect Care: None Current Living Situation: Spouse Feels Safe at Home: Yes Assistive Devices: None Physical Exam Physical Exam: GENERAL: 82 yo well-developed, well-nourished elderly WF. NAD. LUNGS: Clear to auscultation bilaterally w/o W/R/R. CARDIOVASCULAR: Regular rate and rhythm. ABDOMEN: Soft, non-tender and non-distended. BS normoactive x 4 quad. EXTREMITIES: No edema. Non-tender. Peripheral pulses +2/4. SKIN: generalized pallor Results & Data Results & Data Vital Signs (Past 12 Hours) Vital Signs Temp Pulse Pulse Resp BP BP Pulse Ox 03/08/23 17:15 70 20 130/54 L 99 03/08/23 17:00 36.8 C 76 22 138/58 L 98 03/08/23 16:30 36.6 C 72 22 127/57 L 100 03/08/23 16:00 36.7 C 66 19 123/53 L 99 03/08/23 15:45 36.7 C 67 17 139/68 100 03/08/23 15:30 36.7 C 75 20 150/63 H 100 03/08/23 15:15 36.6 C 67 20 145/71 H 99 03/08/23 15:12 36.6 C 73 18 142/88 H 97 03/08/23 14:57 36.7 C 71 18 127/61 100 03/08/23 13:30 65 19 136/44 L 99 03/08/23 13:00 63 24 03/08/23 13:00 63 20 143/70 H 03/08/23 12:50 100 03/08/23 12:40 99 03/08/23 12:35 98 03/08/23 13:00 65 18 95 03/08/23 12:35 69 21 142/60 H 98 03/08/23 12:10 36.5 C 72 20 144/65 H 90 O2 Del Method O2 Flow Rate 03/08/23 17:15 4 03/08/23 17:00 03/08/23 16:30 03/08/23 16:00 4 03/08/23 15:45 4 03/08/23 15:30 4 03/08/23 15:15 4 03/08/23 15:12 4 03/08/23 14:57 4 03/08/23 13:30 03/08/23 13:00 03/08/23 13:00 03/08/23 12:50 03/08/23 12:40 03/08/23 12:35 03/08/23 13:00 Nasal Cannula 4 03/08/23 12:35 Nasal Cannula 4 03/08/23 12:10 Nasal Cannula 4 Laboratory Results 03/08/23 12:55 03/08/23 12:55 Diagnostic Findings Chest X-Ray 03/08/23 12:57 XR chest 1V portable CLINICAL HISTORY: weakness TECHNIQUE: Single frontal radiograph of the chest was obtained. Comparison: Comparison is made to chest radiograph 01/24/2023 FINDINGS: No lines and tubes are seen. Cardiomegaly is noted. The aortic arch is calcified. Prominence and cephalization of the vasculature is seen. Bilateral hilar prominence is again seen likely due to pulmonary vasculature. No evidence of pleural effusion or pneumothorax. IMPRESSION: Cardiomegaly and mild pulmonary edema. ACT 112: Negative or not required by law. Electronically signed by: Davonte Darnell M.D. 03/08/2023 1:39 PM Supervising Physician Co-Signing Physician Notes Patient seen and examined, chart reviewed, case discussed with Veronika Meredith PA-C and I agree with the assessment and plan as above except as otherwise noted Labs and images reviewed Karime is an 82-year-old female with a history of oxygen dependent COPD, CKD, lung cancer s/p lobectomy, and A-fib on Eliquis who presents with recurrent blood loss anemia with suspected upper GI bleed requiring transfusion. Patient does not wish to have any procedural intervention, and refuses endoscopy and understands that continued bleeding could be life-threatening or fatal. Patient reports that in the future she would not like to have continued blood product transfusion or hospitalization for anemia even if she were likely to pass. She notes that many of her friends and family member have passed, and she is also ready to pass when it is her time and would prefer this over recurrent hospitalizations or aggressive procedural intervention. Expressed that this is consistent with palliative/hospice goals of care which patient expresses some understanding of, but also notes she is not ready for yet. Skin is warm and dry, heart rate is regular. Slight pallor. Appears chronically ill but nontoxic. We will transfuse, switch PPI to bolus twice daily dosing for now. Agree with management as noted above PG Care Time/CCT Total # of Minutes Spent Total Time Spent with Patient: Total time spent is greater than 50% in coordination of care (as documented) at patient's floor/unit and/or counseling patient: Coding Level of Care Code 75885 INT INP/OBS CARE MIN Diagnoses Acute blood loss anemia D62 CKD (chronic kidney disease) N18.9 Atrial fibrillation I48.91 HLD (hyperlipidemia) E78.5 Diabetes mellitus E11.9 HTN (hypertension), benign I10 COPD (chronic obstructive pulmonary disease) J44.9
[2023-03-08 18:46] LABS: Hematocrit (blood only) 23.9 % (37.0-47.0); Hemoglobin 7.6 g/dl (12.0-16.0)
[2023-03-08] MEDS ORDERED: DEXTROSE 50% 50 ML SYRINGE IV PRN (19:26)
[2023-03-08] MEDS ORDERED: traMADol HCL 50 MG TABLET PO PRN (19:26)
[2023-03-08] MEDS ORDERED: ALUMINUM/MAGNESIUM SUSP 30 ML UDC PO PRN (19:26)
[2023-03-08] MEDS ORDERED: GLUCOSE 40% GEL 15 GM TUBE PO PRN (19:26)
[2023-03-08] MEDS ORDERED: ALPRAZolam 0.5 MG TABLET PO PRN (19:26)
[2023-03-08] MEDS ORDERED: ACETAMINOPHEN 325 MG TAB PO PRN (19:26)
[2023-03-08] MEDS ORDERED: GLUCOSE 10 TAB/TUBE PO PRN (19:26)
[2023-03-08] MEDS ORDERED: CARBOHYDRATES FOR HYPOGLYCEMIA PO PRN (19:26)
[2023-03-08] MEDS ORDERED: GLUCAGON FOR INJ 1 MG VIAL SQ PRN (19:26)
[2023-03-08] MEDS: FUROSEMIDE 20 MG TAB PO SCH (20:45)
[2023-03-08] MEDS ORDERED: DOXAZosin MESYLATE 4 MG TAB PO SCH (21:00)
[2023-03-08] MEDS ORDERED: ATORVASTATIN 40 MG TAB PO SCH (21:00)
[2023-03-08] MEDS ORDERED: dilTIAZem HCL 240 MG CAPCR PO SCH (21:00)
[2023-03-09 07:29] LABS: Hemoglobin 7.5 g/dl (12.0-16.0); Mean Corpuscular Hemoglobin 27.5 pg (25.0-34.0); Mean Corpuscular Hgb Conc 32.6 g/dL (32.0-36.0); Mean Corpuscular Volume 84.2 fL (80.0-100.0); RDW Coefficient of Variation 19.1 % (11.5-14.5); RDW Standard Deviation 58.4 fL (36.4-46.3); Red Blood Count 2.73 M/uL (4.20-5.40); White Blood Count 11.22 K/ul (4.8-10.8)
[2023-03-09 07:30] LABS: Basophils # (auto) 0.06 K/uL (0-0.2); Basophils % (auto) 0.5 %; Eosinophils # (auto) 0.35 K/uL (0-0.50); Eosinophils % (auto) 3.1 %; Immature Granulocytes # (auto) 0.05 K/uL (0.01-0.20); Immature Granulocytes % (auto) 0.4 %; Lymphocytes # (auto) 1.31 K/uL (1.2-3.4); Lymphocytes % (auto) 11.7 %; Mean Platelet Volume 10.5 fL (9.4-12.4); Monocytes # (auto) 0.95 K/uL (0.11-0.59); Monocytes % (auto) 8.5 %; Neutrophils % (auto) 75.8 %; Platelet Count 284 K/uL (130-400)
[2023-03-09 07:53] LABS: Anisocytosis Present; Polychromasia 1+; Schistocytes 1+
[2023-03-09] MEDS ORDERED: FUROSEMIDE INJ 20 MG/2 ML VIAL IV ONE ×2 (07:56→12:30)
[2023-03-09] MEDS ORDERED: SODIUM CHLORIDE 0.9% 250 ML IV PRN (07:56)
[2023-03-09 07:58] LABS: BUN Creatinine Ratio 31.2 (10-20); Calcium 9.2 mg/dl (8.6-10.3); Creatinine Clr Calc Pharmacy 19.1 ml/min; Est GFR (African American) 27.8 ml/min; Est GFR (Non-African American) 23.9 ml/min; Potassium 3.9 mmol/L (3.5-5.1)
[2023-03-09] MEDS ORDERED: glipiZIDE 5 MG TAB PO SCH (09:00)
[2023-03-09] MEDS: FUROSEMIDE 20 MG TAB PO SCH (09:00)
[2023-03-09] MEDS ORDERED: PANTOprazole 40 MG in SYRINGE 0 ML IV SCH (09:00)
[2023-03-09] MEDS ORDERED: UMECLIDINIUM/VILANTEROL 62.5/25MCG 7 PUFFS/INHALER INH SCH (09:00)
--- NOTE | 2023-03-09 12:01 | Palliative Care Consultation ---
Date of Consultation March 09, 2023 Assessment & Plan (1) Palliative care by specialist: Met with pt/family. Provided overview of Palliative Medicine, a subspecialty that provides specialized medical care for people living with a serious illness by offering a focus on quality of life. Palliative Medicine is often conflated with hospice: I advised patient/family that Palliative and hospice can be partners but we are not the same. It is important to understand the difference so that we may be informed, and not afraid. Palliative Medicine works to improve QOL through reduction of symptom burden/more control over their illness, for both the patient and family. Palliative medicine clinicians are board certified, specially-trained and another member of the patient's medical care team. We often provide an extra layer of support because our care is based on the needs of the patient, not the prognosis; as such, it's appropriate at any age/advancing stage of a serious illness and can be provided along with curative treatment. Palliative Medicine clinicians are also trained in advanced communication methodologies, to facilitate complex discussions about advanced illness planning, which are needed to help assure that the treatment choices match the patient's goals, aka delivering Goal Concordant care. Finally, we discussed that hospice is a visiting nurse service that focuses on care delivered at the very end of life for patients with terminal illness, with life expectancy less than 6 month. (2) Advanced care planning/counseling discussion: Face to face meeting with pt at bedside for 45 minutes. We reviewed that all chronic/progressive disease has a declining trajectory over time where facets of patient self-identity and independence are lost. Every acute event leads to a further decline, resulting- many times, in a new baseline. Advised that the greatest priority is to determine what matters most to pt, then family and to develop a plan of care that is aligned with those priorities. We discussed that Advance illness planning conversations are conducted to review goals and expectations, support shared decision-making, and engage in disease specific advance care planning. This type of advance care planning is sometimes referred to as 'preparedness planning. It is used to review the risks and benefits of offered therapy, elicit and deepen understanding of the underlying illness and therapeutic options, ensure adequate psychosocial support, address existential concerns and coping, and engage in end-of-life planning. Preparedness planning is not meant to replace informed consent discussions. Palliative medicine plays a role in the process of deepen ing a patients understanding of this specific medical intervention and ensuring this treatment aligns with their goals of care remains a central tenet of the planning conversation. We spoke about the nature of COPD, how the ATS and ERS define COPD as a preventable and treatable disease state characterized by airflow limitation that is not fully reversible. The airflow limitation is usually progressive and associated with a chronic inflammatory response of the lungs to noxious particles or gases. COPD is incurable and will worsen over time. Sometimes when patients stop smoking, the progression will slow down, but all COPD over time will get worse. Medications become less effective and do not work as well; in general these patients experience a significant decline in QOL. Patients with COPD constitute a large group of symptomatic patients with a common, chronic, and generally progressive respiratory disorder. Recent studies indicate that patients in this group, on the whole, receive less palliative care in their terminal phase than patients with lung cancer. We discussed that Palliative care can begin when a patient becomes symptomatic and is usually concurrent with restorative and life-prolonging care. Palliative care is titrated, analogous to curative/restorative care, to meet the needs of the patient and family in accord with their preferences. We will help manage their symptoms and assist with goals of care discussions. COPD hospice guidelines I discussed the option of adding hospice to her care: we spoke about how hospice and palliative care provide an extra layer of support for managing the symptoms of COPD. They improve quality of life for patients and their families by addressing social, spiritual and practical issues. I have provided education about the option of hospice for advanced COPD, noting that living with COPD can be difficult michelle as disease progresses/PS declines plus we know it can be equally challenging for caregivers, but you don't have to face the challenges alone. We discussed how hospice and palliative care both offer relief from the pain and symptoms of COPD. Both can address the mental, social and spiritual needs of a patient. In fact, hospice is a type of palliative care during the final stage of life. I advised there are hospice eligibility guidelines for COPD/lung disease as follows: Major characteristics a. Dyspnea at rest and/or with minimal exertion while on oxygen therapy b. Dyspnea unresponsive or poorly responsive to bronchodilator therapy c. Progression of chronic pulmonary disease as evidenced by one or more of the following: d. Frequent use of medical services, including hospitalizations, ED visits and/or physician outpatient visits, due to symptoms of pulmonary disease e. Frequent episodes of bronchitis or pneumonia f. Unintentional weight loss of >=10 percent body weight over the preceding six months g. Progressive inability to independently perform various activities of daily living (ADLs) or an increasing dependency with ADLs, resulting in a progressively lower performance status Other important critical factors h. Cor pulmonale i. Continuous chronic oxygen therapy j. Resting tachycardia > 100/minute k. Steroid-dependent l. Cyanosis Abnormal laboratory findings 2. While these laboratory studies may be helpful to the clinician when considering patient appropriateness for hospice services, they are not required for patient admission. a. FEV1 <=30 percent predicted post-bronchodilator b. Serial decreases in FEV1 of at least 40 ml/year over several years c. PO2 <=55 on room air d. O2 sat. <=88 percent on room air e. Persistent hypercarbia (PCO2) >=50 mm HG Her daughter was very upset/bordering on angry that I brought up hospice. She states "we are not there yet, she's not dying!" Patient states "I'm ready to go whenever it's my time." I tried to provide an outline of hospice services and patient interrupted me to say she would not accept it "because my doesn't like strangers coming in the house and I will do what he wants." Patient then segued to a long complaint about her insurance, the out of pocket expenses and perceptions that medical teams are doing additional interventions, labs, treatments such as blood transfusions to add to her expenses. She states she simply wants to go home and stay home. She states "I am not coming back to this hospital, or [place] or anyplace. Never." I tried to speak with both pt and dtr about the expected progression of illness given her adv lung disease and chronically low blood counts in setting of suspected but untreated bleed. I advised her clearly that the blood transfusions are what help her feel better but these effects are transient when the underlying problems are not treated, such as a bleed. I told them clearly that as her anemia worsens in time, it will worsen her dyspnea and she may re develop chest pain due to the effects of low oxygen on the heart. I told her and the dtr that much of the reason to engage hospice is to have a safety net of second floor operator nurses who can provide support and medical mgt at all times, even overnight or after hours through the second floor operator coverage service. If needed the hospice nurses can come to the house as well. I reinforced that I anticipate she will need this type of responsiveness with the acuity and worsening of her incurable, advancing illness. Dtr was slightly mollified by this discussion. She then had several questions about changing PCP and MCR plans bc patient is not happy with current [employer]. Advised she would need to call the MCR plan she wants to find out if it will meet Mom's needs - dtr shares her father is on [employer] and she feels this would be a fit for Mom. I advised her to call [employer] for more info/possible enrollment and I informed her that if she enrolls in a [employer] plan, then Mom would be eligible for the [facility] medical home care team which is a medicare transitional care program: I advised them that transitional care is a pre- hospice program designed to advanced illness patients the care they want at home and keep them out of the hospital. Transitional care addresses the needs of patients in a declining state of health who are not yet ready to enter hospice care. Patients may continue to receive life-prolonging treatments in additional to palliative care that focuses on comfort measures and pain relief. Studies demonstrate these Palliative therapies can have a positive effect on a patients mobility, happiness and overall quality of life. In Transitional care programs, nurses and other members of the home care and hospice team will regularly visit patients at home to teach them how to better manage their diseases, advance care planning and when necessary, end of life care. Providers will review and modify medication regimen to assure patient is not getting any unnecessary m edications. Unlike hospice care, patients in this program don't need to have a prognosis of six months or less to live, and they can continue getting treatment that is aimed at curing their illnesses, not just treating symptoms. Transitional care programs are useful for patients who may be at or nearing the point where they starting to realize there disease is becoming more end stage/advanced and medical modalities have been maximized but no longer provide the relief they once did when patients' disease was not so severe. The overall goal of transitional care is to help our patients through this process so it's not filled with chaos. (3) Dyspnea and respiratory abnormalities: (4) COPD, very severe: (5) Acute blood loss anemia: (6) Atrial fibrillation: Plan Patient and dtr do not want any of the services I outlined above and no matter what was suggested, they identified various obstacles: "she's not there yet, She's not dying, my won't let strangers in the house" etc. Goals at this time appear to be return home and manage her issues in whatever way she deems to be the way for her. I have suggested transitional care options and reinforced she is hospice appropriate. I specifically advised daughter directly that with the progressive anemia + adv lung disease, symptom burden will intensify - having second floor operator support is olson to helping assure pt can remain home as she repeatedly states is her priority and desire. They refused home health. They refused home hospice. They do not want OP Pall Med follow up. I have updated nursing and primary team. I will sign off. Thank you for allowing us to participate in the ongoing care of this patient. Please don't hesitate to call or page with any additional concerns. Dr. Teresa De Leon DNP Director, Palliative Care History of Present Illness Reason for Consultation: end-stage COPD; recurrent GI bleeding Attending Physician: Raoul Rasmussen History of Present Illness Karime Elam is a 82yo female with end stage, oxygen/bipap dependent COPD, CKD, h/o lung cancer s/p lobectomy, A fib on Eliquis. She was recently hospitalized 01/24 through 01/26 for acute blood loss anemia, requiring transfusion, with suspected upper GI bleed. Unfortunately, during that hospitalization, the patient refused endoscopy. Now she admits to weakness, fatigue, dyspnea. Hgb noted to be 6.1 in ED. She is refusing endoscopy and advised admitting team "I am ready to ." She further added she would accept blood products this admission but will not return to hospital. She is seen at bedside together with her daughter. Allergies Allergy/AdvReac Type Severity Reaction Status Date / Time No Known Allergies Allergy Unverified 03/08/23 14:21 Home Medications Medication Instructions Recorded Confirmed Type acetaminophen 500 mg tablet 1,000 mg PO Q6H PRN Pain 01/24/23 03/08/23 History (Tylenol Extra Strength) alprazolam 0.5 mg tablet 0.5 mg PO TID PRN Anxiety 01/24/23 03/08/23 History atorvastatin 40 mg tablet 40 mg PO HS 01/24/23 03/08/23 History cholecalciferol (vitamin D3) 25 0 mcg PO DAILY 01/24/23 03/08/23 History mcg (1,000 unit) tablet (Vitamin D3) cyanocobalamin (vitamin B-12) 1,000 mcg subcut MO 01/24/23 03/08/23 History 1,000 mcg/mL injection solution diltiazem HCl 240 mg 240 mg PO QPM 01/24/23 03/08/23 History capsule,extended release 24 hr, controlled (DILT-XR) furosemide 20 mg tablet 20 mg PO BID 01/24/23 03/08/23 History glycopyrrolate 9 mcg-formoterol 2 puff inhalation BID 01/24/23 03/08/23 History 4.8 mcg HFA aerosol inhaler (Bevespi Aerosphere) potassium 99 mg tablet 99 mg PO DAILY 01/24/23 03/08/23 History tramadol 50 mg tablet 50 mg PO Q6 PRN Pain 01/24/23 03/08/23 History pantoprazole 40 mg tablet,delayed 40 mg PO BID #60 tabs 03/09/23 Rx release (Protonix) Patient History Medical History (Updated 03/09/23 @ 12:26 by Teresa De Leon DNP) Advanced care planning/counseling discussion Atrial fibrillation COPD, very severe CVA (cerebrovascular accident) Dyspnea and respiratory abnormalities HLD (hyperlipidemia) HTN (hypertension), benign Lung cancer Palliative care by specialist Surgical History (Updated 01/24/23 @ 16:28 by Reta Swan PA-C) H/O: hysterectomy Status post pneumonectomy Social History Smoking Status: Former smoker Tobacco Type: Cigarettes Second Hand Exposure: No; Hx Alcohol Use: No Hx Substance Use: No Preferred Language: Irish Communication Ability: Effective Immigration Officer Required: No Beliefs That Will Affect Care: None Current Living Situation: Spouse Feels Safe at Home: Yes Assistive Devices: Cane, Glasses, Oxygen - Continuous and Walker Review of Systems Review of Systems: Other (pt told me to "read the chart") Physical Exam Physical Exam: Pt declined examination, tells me she wants to go home and "just hurry it up already." She is seated in her recliner chair, dtr is sitting next to her. She is thin and chronically ill appearing, frail. She is dyspneic at rest. There is use of accessory muscles and conversational dyspnea. She is AAOx3 Skin is thin, papery and cool to touch. Venous insuff changes to BLE with some edema noted Results & Data Vital Signs (Past 12 Hours) Vital Signs Temp Pulse Pulse Resp BP BP Pulse Ox 03/09/23 10:55 36.8 C 81 18 117/61 100 03/09/23 10:36 36.9 C 70 14 113/65 100 03/09/23 09:55 36.8 C 70 18 112/66 100 03/09/23 09:30 37.1 C 67 16 114/57 L 100 03/09/23 09:10 36.8 C 68 16 114/58 L 98 03/09/23 09:10 36.8 C 68 16 114/58 L 98 03/09/23 08:00 03/09/23 08:53 36.6 C 92 H 16 99 03/09/23 07:58 36.6 C 65 20 123/68 99 03/09/23 07:07 52 L 03/09/23 03:09 36.7 C 53 L 18 118/54 L 100 O2 Del Method O2 Flow Rate 03/09/23 10:55 4 03/09/23 10:36 4 03/09/23 09:55 4 03/09/23 09:30 4 03/09/23 09:10 4 03/09/23 09:10 4 03/09/23 08:00 Room Air 03/09/23 08:53 4 03/09/23 07:58 Nasal Cannula 4 03/09/23 07:07 03/09/23 03:09 Nasal Cannula 4 Laboratory Results data reviewed Diagnostic Findings data reviewed Medications Administered data reviewed PG Care Time/CCT Total # of Minutes Spent Total Time Spent: 85 Total Time Spent with Patient: Total time spent is greater than 50% in coordination of care (as documented) at patient's floor/unit and/or counseling patient: I spent 85 minutes overall addressing this case: 10 in medical data review/discussion with referring provider(s) and/or preparation for the visit 15 in direct interaction with the patient and dtr 45 Advance Care Planning/Goals of Care discussions as detailed above in note (must be >16min) 5 in subsequent review and synthesis of assessment and plan 10 in communicating with other providers regarding the patient's case: [] [place] [address] IN/OBS CONSULT LVL 5,80M Patient Type New History Comprehensive Exam Expanded Problem Focused Medical Decision Making High Complexity Diagnoses Palliative care by specialist Z51.5 Advanced care planning/counseling discussion Z71.89 Dyspnea and respiratory abnormalities R06.00; R06.89 COPD, very severe J44.9 Acute blood loss anemia D62 Atrial fibrillation I48.91
[2023-03-09] MEDS ORDERED: Nursing to Pharmacy Communication SCH (12:30)
--- NOTE | 2023-03-09 15:30 | Discharge Summary ---
Date of Service March 09, 2023 Admission HPI Per Admitting Provider Karime Elam is an 82 yo F with a pmhx of end stage, oxygen/bipap dependent COPD, CKD, h/o lung cancer s/p lobectomy, who presented to the ER today referred by her PCP due to low blood counts. Patient was hospitalized 01/24 through 01/26 for acute blood loss anemia, requiring transfusion, with suspected upper GI bleed. Unfortunately, during that hospitalization, the patient refused endoscopy. She has a h/o atrial fibrillation for which she takes Eliquis. This medication was held during her last admission but appears to have been resumed upon discharge. She is also taking Aspirin 81mg daily. She reports some instances of black stools but other times reports it is brown. Denies BRBPR. She denies abdominal pain, n/v, unintentional weight loss, or early satiety. She notes that she was ordered follow up bloodwork at the time of discharge on 01/26 that she just had completed about one week ago. She was contacted by her PCP and informed that her blood counts were low and was encouraged to seek treatment in the ER. Patient notes that she has been fatigued, increasingly short of breath, and weak. Her CBC today shows a hemoglobin of 6.1. She continues to adamantly refused endoscopy, stating that she is "ready to ." She states that she is agreeable to receiving blood products this time, but after this hospital stay, she will not return. She denies chest pain and is presently comfortable without complaints. Discharge Data Allergies Allergy/AdvReac Type Severity Reaction Status Date / Time No Known Allergies Allergy Unverified 03/08/23 14:21 Consultations 03/08/23 16:18 ED Decision to Admit Stat 03/09/23 10:33 Consult Palliative Care Routine Hospital Course (1) Acute blood loss anemia: 82 yo F with a h/o afib on chronic ACT with Eliquis Acute/unstable - Admit to med tele - Diabetic diet - Reviewed CBC, hgb 6.1/hct 20.3 - T&C and transfusion ordered for 1 unit of blood and 2 more units on hold - Obtain H&H @ 1800 (after 1st unit) and again after 2nd unit - Transfuse 2nd unit after H&H back/reviewed, anticipate will require 3rd unit as well - Hold Eliquis and Aspirin - Discussed with patient again re: endoscopy, she continues to refuse this procedure - Given her continued refusal, will not consult GI team - Did broach the subject of palliative med eval/hospice - Daughter who is at bedside states that "she's not there yet" - Ordered Protonix bolus and drip, will d/c drip this evening and convert to 40mg IV BID (2) CKD (chronic kidney disease): Stage 4 CKD with baseline creatinine ~1.5 Acute on chronic/unstable - CMP reviewed, creatinine 1.93, likely due to hypoperfusion - Transfuse as outlined above - Hold Lisinopril (3) Atrial fibrillation: Chronic/stable - Currently examines in NSR - Stop Eliquis as above - Thoroughly discussed increased risk of stroke with patient and daughter, they understand and are agreeable to stopping med - This should not be resumed upon discharge - Continue Diltazem XR 240mg qHS (4) HLD (hyperlipidemia): Chronic/stable - Continue Atorvastatin (5) Diabetes mellitus: Chronic/stable - Currently on Glipizide 5mg daily at home - Perform accuchecks AC and HS - Add coverage for BSG>180 - Patient is not keen on receiving insulin (6) HTN (hypertension), benign: Chronic/stable - Continue Doxazosin, Diltiazem - Hold Lisinopril d/t JALIL on CKD as above (7) COPD (chronic obstructive pulmonary disease): End-stage, both 4L O2 and BiPAP (at HS) dependent, h/o lung ca s/p R LLobectomy - Continue supplemental O2 and HS BiPAP - Continue inhalers Plan No chemoprophylaxis in setting of acute blood loss anemia. SCDs b/l will suffice. Above plan of care has been d/w Dr. Hernandez who has also seen and evaluated this patient. Further orders will be implemented as warranted. Discharge Plan Discharge Items Patient Disposition: Home - Self-Care Reason For Visit: ABLA, GI BLEED Discharge Diagnosis: 1. iron deficiency anemia - due to gastrointestinal blood loss 2. ongoing gastrointestinal blood loss - source is uncertain 3. chronic respiratory failure on home oxygen 4. COPD Activity: As commented below Activity Comment: light activities, as tolerated Non-emergency contact: Primary Care Provider Call non-emergency contact if: you have any medication questions and your symptoms worsen Follow-up/Referrals: Mathew Perez, [Primary Care Provider] - (see Dr Perez within 3-5 days ) Diet: Carb Consistent or DM2 Ambulatory Orders: Basic Metabolic Panel (Routine) Timeframe: 20230313 Location: Determined by Patient Ordered By: Raoul Rasmussen Complete Blood Count no Diff (Routine) Timeframe: 20230313 Location: Determined by Patient Ordered By: Raoul Rasmussen Addtl Attending Provider Instructions: Mrs Elam, Micheal were admitted to [facility] due to severe anemia. You received 2 units of blood during your stay. You tolerated the blood transfusion well. In the past as well as currently you have declined to undergo gastrointestinal tests (upper endoscopy, etc) to try and find the cause of the gastrointestinal bleeding. There is a very good chance that you will have recurrent bleeding in the future. Stopping your Eliquis and aspirin may reduce the risk of bleeding but may not eliminate it completely. During the stay we held many of your blood pressure pills. Your blood pressure has been stable/normal without them. Often times when someone is anemic from bleeding there is less of a need for certain blood pressure pills. Our palliative care team saw you in consult. They were involved to try and help you come up with a plan for the future if there is recurrent bleeding or other health problems that warrant hospitalization. At this time you have declined any form of home health services, hospice services, or other assistance that we can offer. Recommendations - 1. Please STOP the following medications - * aspirin * Eliquis * doxazosin * lisinopril * glipizide 2. Refill on pantoprazole (protonix) acid cad operator was called to [facility] for you. Take pantoprazole 40mg twice daily. If you are bleeding from the stomach this medication will hopefully help. 3. Your kidney function is too poor at this time to safely take glipizide for your diabetes. You would be at risk of frequent low blood sugars if we resumed it. Please contact Dr Perez to determine what medications can be used for your diabetes . 4. Do not take any [id number] motrin, ibuprofen, naprosyn, aleve, or aspirin. These can contribute to stomach/intestinal bleeding. IT IS OK TO TAKE TYLENOL for aches/pains as tylenol does not cause bleeding. 5. If you change your mind about home health services or even hospice please contact Dr Perez's office as he could arrange those services for you. 6. Ideally please have a repeat blood count (CBC) and electrolytes/kidney function (BMP) within 3-5 days. I have printed lab slips for this purpose. You can go to [facility] or where ever your family doctor usually sends you for blood draws. Have the blood draw on 03/13/23, if possible. Follow-up - see Dr Perez within 3-5 days Return to [facility] or any hospital if you are feeling dizzy or lightheaded, feel like you could pass out, you are seeing large amounts of black stool, you see bright red blood in your stools, have difficulty breathing, etc. Pending Studies at Discharge: No Stand-Alone Forms: My [facility], Smoking Cessation Medications and DC Order Prescriptions: New pantoprazole [Protonix] 40 mg tablet,delayed release (DR/EC) 40 mg PO BID Qty: 60 2RF Continued atorvastatin 40 mg tablet 40 mg PO HS diltiazem HCl [DILT-XR] 240 mg capsule,ext.rel 24h degradable 240 mg PO QPM tramadol 50 mg tablet 50 mg PO Q6 PRN (Reason: Pain) acetaminophen [Tylenol Extra Strength] 500 mg Tablet 1,000 mg PO Q6H PRN (Reason: Pain) alprazolam 0.5 mg tablet 0.5 mg PO TID PRN (Reason: Anxiety) potassium 99 mg Tablet 99 mg PO DAILY cyanocobalamin (vitamin B-12) 1,000 mcg/mL Solution 1,000 mcg SUBCUT MO furosemide 20 mg tablet 20 mg PO BID cholecalciferol (vitamin D3) [Vitamin D3] 25 mcg (1,000 unit) Tablet 0 mcg PO DAILY Bevespi Aerosphere 9-4.8 mcg HFA aerosol inhaler 2 puff INHALATION BID Discontinued aspirin 81 mg Tablet,Delayed Release (Dr/Ec) 81 mg PO DAILY lisinopril 5 mg tablet 5 mg PO DAILY Eliquis 5 mg tablet 5 mg PO BID doxazosin 4 mg tablet 4 mg PO HS glipizide 5 mg tablet 5 mg PO DAILY Discharge Orders: Discharge Order (Routine); Ordered 03/09/23 Ordered By: Raoul Bolivar/Other Patient Handouts: Chest and Lung Problems, GI Bleeding Causes and Tests Admission Data Admit Date/Time: 03/08/23 17:30 Attending Provider: Raoul Rasmussen Admit Provider: Luis Hernandez Primary Care Provider: Mathew Perez Other Providers: Luis Hernandez ; Dilma Mackey Other Interventions: Discharge Summary Assessment (RN) Last Done: 03/09/23 15:07 Coding Diagnoses Acute blood loss anemia D62 CKD (chronic kidney disease) N18.9 Atrial fibrillation I48.91 HLD (hyperlipidemia) E78.5 Diabetes mellitus E11.9 HTN (hypertension), benign I10 COPD (chronic obstructive pulmonary disease) J44.9
--- NOTE | 2023-03-10 05:47 | Electrocardiogram Report ---
Test Reason : Blood Pressure : / mmHG Vent. Rate : 068 BPM Atrial Rate : 068 BPM P-R Int : 170 ms QRS Dur : 152 ms QT Int : 440 ms P-R-T Axes : 079 139 -51 degrees QTc Int : 467 ms Normal sinus rhythm Right bundle branch block Septal infarct (cited on or before 08-MAR-2023) T wave abnormality, consider inferolateral ischemia Abnormal ECG When compared with ECG of 26-JAN-2023 13:26, Premature atrial complexes are no longer Present Questionable change in QRS axis Confirmed by Arun Bennett ([id number]) on 03/10/2023 5:47:09 AM Referred By: Mathew Perez Confirmed By:Arun Bennett
== END 2023-03-09 15:44 | disposition home or self-care (01) ==
LOC: ED 12:09 → SUATTDRO 17:30 → INTOOBSV 17:30 → 2N 17:30

== ENCOUNTER 2023-04-26 06:50 | Inpatient (IN) ==
--- NOTE | 2023-04-26 07:11 | Emergency Department Note ---
Impression & Plan Generalized weakness ED Provider Note INFORMANT: Patient ED PROVIDER(S): Michael Fontanez DO CHIEF COMPLAINT: Generalized weakness PLAN: Disposition: Admission Outpatient prescription management: none Discussion with: I spoke with the hospitalist, who will see the patient for admission/observation and further evaluation and consultation. MEDICAL DECISION MAKING: This is a 83-year-old female who presents to the ED with a chief complaint of generalized weakness. The patient states that she could not get out of bed this morning. She states that she was falling backwards when she attempted to get out of bed. The patient reports that she has been feeling progressively weaker over the past few months. She also has some chronic pain issues for which she had been taking pain medication. She has had some constipation issues related this and was taking Dulcolax which seemed to help some. She is currently not taking the pain medication because of the constipation issues. The patient called her daughter this morning telling her that she could not get up and the daughter went over and called EMS and the patient was transported here for evaluation. She is mentally normal according to the daughter and per the nurse who spoke with EMS. No family is currently present. The patient was noted to be hypoxic on her oxygen at home. EMS reported 78% saturations and possibly her oxygen conservator was not functioning. When EMS put her on her normal 4 to 6 L of oxygen, her saturations were above 90. The patient states that overall she did continues to feel the same way that she has been feeling for the past several weeks. She does have some pedal edema on my exam. She states that this is present for the past several weeks as well. Her lungs are mostly clear but slightly diminished. History of pneumonectomy. Abdomen is soft and nontender. Moves all 4 extremities. No focal deficits. Vital signs are stable. The patient's white blood cell count was mildly elevated 12.7. Her hemoglobin is 11.6. This is actually better than her baseline hemoglobin. The BUN is 54 and the creatinine is 2.25. This is worse than her baseline. EKG shows a normal sinus rhythm rate of 75. T wave inversions previously seen in the inferior lateral leads appear to have resolved. Troponin is elevated at 73. Glucose is 212. Chest x-ray shows left pleural effusion. Because of the patient's weakness and other abnormalities on laboratory studies, the patient will be kept in the hospital for further evaluation and care. She was given some aspirin p.o. She was also given 500 cc normal saline as she clinically seems a little dehydrated. Triage Nursing notes reviewed. Vital Signs: reviewed Prior /Outside records reviewed: [none] Differential diagnosis: Differential includes acute coronary syndrome, myocardial infarction, CVA, TIA, anemia, infection, pneumonia, UTI, pyelonephritis, poor nutrition, dehydration, electrolyte disturbance,hypoglycemia. Diagnostics, as interpreted by me: 12 lead ECG: Normal sinus rhythm rate of 75. Right bundle branch block pattern. T wave inversions on a previous EKG currently not present in the inferior lateral leads. Cardiac Monitoring ordered: Sinus rhythm in the 70s. Medical decision rules: [none] Imaging studies: Chest x-ray: Left pleural effusion. Procedures: none. Critical care: none. HPI: See MDM above. PAST MEDICAL HISTORY: See Below PAST SURGICAL HISTORY: See Below SOCIAL HISTORY: See Below HOME MEDICATIONS:See Below ALLERGIES: See Below VITALS: See Below PHYSICAL EXAMINATION: See MDM for positive findings otherwise unremarkable. CONSTITUTIONAL/VITAL SIGNS: Reviewed GENERAL:done as appropriate INTEGUMENTARY: done as appropriate HEAD: done as appropriate EYES: done as appropriate RESPIRATORY: done as appropriate CARDIOVASCULAR:done as appropriate GI/ABDOMEN:done as appropriate EXTREMITIES: done as appropriate NEUROLOGICAL: done as appropriate PSYCHIATRIC:done as appropriate MUSCULOSKELETAL:done as appropriate TRIAGE NURSING DOCUMENTATION REVIEWED. Past Med/Surg History Medical History (Updated 04/26/23 @ 07:11 by Michael Fontanez DO) Acute blood loss anemia Advanced care planning/counseling discussion Atrial fibrillation CKD (chronic kidney disease) COPD (chronic obstructive pulmonary disease) COPD, very severe CVA (cerebrovascular accident) Diabetes mellitus Dyspnea and respiratory abnormalities GIB (gastrointestinal bleeding) HLD (hyperlipidemia) HTN (hypertension), benign Iron deficiency Lung cancer Palliative care by specialist Surgical History (Updated 01/24/23 @ 16:28 by Reta Swan PA-C) H/O: hysterectomy Status post pneumonectomy Social History Smoking Status: Former smoker Tobacco Type: Cigarettes Second Hand Exposure: No; Do You Dip or Chew Tobacco: No; Hx Alcohol Use: No Hx Substance Use: No Preferred Language: Divehi Communication Ability: Effective Milking Worker Required: No Beliefs That Will Affect Care: None Current Living Situation: Spouse Feels Safe at Home: Yes Assistive Devices: Cane, Glasses, Oxygen - Continuous and Walker Allergies Allergies Allergy/AdvReac Type Severity Reaction Status Date / Time No Known Allergies Allergy Unverified 03/08/23 14:21 Home Meds Home Medications Medication Instructions Recorded Confirmed acetaminophen 500 mg tablet 1,000 mg PO Q6H PRN Pain 01/24/23 03/08/23 (Tylenol Extra Strength) alprazolam 0.5 mg tablet 0.5 mg PO TID PRN Anxiety 01/24/23 03/08/23 atorvastatin 40 mg tablet 40 mg PO HS 01/24/23 03/08/23 cholecalciferol (vitamin D3) 25 0 mcg PO DAILY 01/24/23 03/08/23 mcg (1,000 unit) tablet (Vitamin D3) cyanocobalamin (vitamin B-12) 1,000 mcg subcut MO 01/24/23 03/08/23 1,000 mcg/mL injection solution diltiazem HCl 240 mg 240 mg PO QPM 01/24/23 03/08/23 capsule,extended release 24 hr, controlled (DILT-XR) furosemide 20 mg tablet 20 mg PO BID 01/24/23 03/08/23 glycopyrrolate 9 mcg-formoterol 2 puff inhalation BID 01/24/23 03/08/23 4.8 mcg HFA aerosol inhaler (Bevespi Aerosphere) potassium 99 mg tablet 99 mg PO DAILY 01/24/23 03/08/23 tramadol 50 mg tablet 50 mg PO Q6 PRN Pain 01/24/23 03/08/23 Previous Rx's Medication Instructions Recorded pantoprazole 40 mg tablet,delayed 40 mg PO BID #60 tabs 03/09/23 release (Protonix) Results & Data (ED) Vital Signs Vital Signs - 24 hr 04/26/23 07:08 04/26/23 07:07 04/26/23 07:06 Temperature 36.9 C Temperature Source Oral Oral Pulse Rate 75 Respiratory Rate 20 Respiratory Depth Normal Blood Pressure 149/101 H Blood Pressure Mean 117 Blood Pressure Position Lying Pulse Oximetry 94 Oxygen Delivery Method Nasal Cannula Nasal Cannula Oxygen Flow Rate 6 Sepsis Recent Fever Within 48 Hours No Sepsis New/Unexplained Change in Mental Status No Sepsis Action Taken by Nursing No Action Required 04/26/23 08:09 Temperature Temperature Source Pulse Rate 75 Respiratory Rate Respiratory Depth Blood Pressure Blood Pressure Mean Blood Pressure Position Pulse Oximetry Oxygen Delivery Method Oxygen Flow Rate Sepsis Recent Fever Within 48 Hours Sepsis New/Unexplained Change in Mental Status Sepsis Action Taken by Nursing Laboratory Data 04/26/23 07:32 04/26/23 07:32 Lab Results 04/26/23 04/26/23 04/26/23 Range/Units 07:32 07:32 07:32 WBC 12.71 H (4.8-10.8) K/ul RBC 4.62 (4.20-5.40) M/uL Hgb 11.6 L (12.0-16.0) g/dl Hct 37.0 (37.0-47.0) % MCV 80.1 (80.0-100.0) fL MCH 25.1 (25.0-34.0) pg MCHC 31.4 L (32.0-36.0) g/dL RDW Std Deviation 51.8 H (36.4-46.3) fL RDW Coeff of Bimal 17.9 H (11.5-14.5) % Plt Count 422 H (130-400) K/uL MPV 10.3 (9.4-12.4) fL Immature Gran % (Auto) 0.4 % Neut % (Auto) 82.0 % Lymph % (Auto) 8.7 % Cuming % (Auto) 7.8 % Eos % (Auto) 0.5 % Baso % (Auto) 0.6 % Neut # (Auto) 10.43 H (1.40-6.50) K/uL Lymph # (Auto) 1.10 L (1.2-3.4) K/uL Cuming # (Auto) 0.99 H (0.11-0.59) K/uL Eos # (Auto) 0.06 (0-0.50) K/uL Baso # (Auto) 0.08 (0-0.2) K/uL Immature Gran # (Auto) 0.05 (0.01-0.20) K/uL Sodium 131 L (136-145) mmol/L Potassium 4.2 (3.5-5.1) mmol/L Chloride 96 L (98-107) mmol/L Carbon Dioxide 25 (21-32) mmol/L Anion Gap 10 (3-11) BUN 54 H (6-23) mg/dl Creatinine 2.25 H (0.6-1.2) mg/dl Est Cr Clr Drug Dosing 15.8 ml/min Est GFR ( Amer) 22.3 ml/min Est GFR (Non-Af Amer) 19.3 ml/min BUN/Creatinine Ratio 24.0 H (10-20) Glucose 212 H (70-99(Fasting)) mg/dl Calcium 9.5 (8.6-10.3) mg/dl Magnesium 1.8 (1.7-2.4) mg/dl Total Bilirubin 0.7 (0.2-1.0) mg/dl AST 15 (13-39) U/L ALT 15 (7-52) U/L Alkaline Phosphatase 77 (34-104) U/L Total Creatine Kinase 42 (26-192) U/L Troponin I High Sens 73.3 H* (0-14) pg/ml Total Protein 6.3 (6.0-8.3) gm/dl Albumin 3.9 (3.4-5.0) gm/dl Globulin 2.4 L (2.5-4.0) gm/dl Albumin/Globulin Ratio 1.6 (0.9-2) TSH 7.505 H (0.300-4.500) uIu/ml Free T4 0.97 (0.61-1.60) ng/dl SARS-CoV-2, RNA, NAAT (NEGATIVE) 04/26/23 Range/Units 07:32 WBC (4.8-10.8) K/ul RBC (4.20-5.40) M/uL Hgb (12.0-16.0) g/dl Hct (37.0-47.0) % MCV (80.0-100.0) fL MCH (25.0-34.0) pg MCHC (32.0-36.0) g/dL RDW Std Deviation (36.4-46.3) fL RDW Coeff of Bimal (11.5-14.5) % Plt Count (130-400) K/uL MPV (9.4-12.4) fL Immature Gran % (Auto) % Neut % (Auto) % Lymph % (Auto) % Cuming % (Auto) % Eos % (Auto) % Baso % (Auto) % Neut # (Auto) (1.40-6.50) K/uL Lymph # (Auto) (1.2-3.4) K/uL Cuming # (Auto) (0.11-0.59) K/uL Eos # (Auto) (0-0.50) K/uL Baso # (Auto) (0-0.2) K/uL Immature Gran # (Auto) (0.01-0.20) K/uL Sodium (136-145) mmol/L Potassium (3.5-5.1) mmol/L Chloride (98-107) mmol/L Carbon Dioxide (21-32) mmol/L Anion Gap (3-11) BUN (6-23) mg/dl Creatinine (0.6-1.2) mg/dl Est Cr Clr Drug Dosing ml/min Est GFR ( Amer) ml/min Est GFR (Non-Af Amer) ml/min BUN/Creatinine Ratio (10-20) Glucose (70-99(Fasting)) mg/dl Calcium (8.6-10.3) mg/dl Magnesium (1.7-2.4) mg/dl Total Bilirubin (0.2-1.0) mg/dl AST (13-39) U/L ALT (7-52) U/L Alkaline Phosphatase (34-104) U/L Total Creatine Kinase (26-192) U/L Troponin I High Sens (0-14) pg/ml Total Protein (6.0-8.3) gm/dl Albumin (3.4-5.0) gm/dl Globulin (2.5-4.0) gm/dl Albumin/Globulin Ratio (0.9-2) TSH (0.300-4.500) uIu/ml Free T4 (0.61-1.60) ng/dl SARS-CoV-2, RNA, NAAT NEGATIVE (NEGATIVE) Administered Medications Discontinued Medications Sodium Chloride (Nss) 500 mls @ 999 mls/hr IV .Q31M KERWIN Stop: 04/26/23 07:45 Last Infusion: 04/26/23 08:02 Dose: 0 mls/hr Documented By: Admin: 04/26/23 07:31 Dose: 999 mls/hr Documented By: NEYDA Imaging Data Radiologist's Impression: Chest X-Ray 04/26/23 07:06 XR chest 1V portable CLINICAL HISTORY: weakness TECHNIQUE: Single frontal radiograph of the chest was obtained. Comparison: Comparison is made to chest radiograph 03/08/2023 FINDINGS: No lines and tubes are seen. Cardiomegaly is noted. The aortic arch is calcif ied. Prominent perihilar opacities are seen which likely represent prominent pulmonary vasculature. There is cephalization and prominence of the vasculature compatible with mild pulmonary hypertension. Small bilateral pleural effusions are seen. IMPRESSION: 1. Cardiomegaly and mild pulmonary edema. 2. Small bilateral pleural effusions. ACT 112: Negative or not required by law. Electronically signed by: Davonte Darnell M.D. 04/26/2023 8:02 AM Discharge Plan Visit Data Chief Complaint: Illness Stated Complaint: Difficulty Ambulating, Hyperglycemia, Low O2 ED Provider: Michael Fontanez Discharge Problem: Generalized weakness Forms Stand Alone Forms: My [facility] Prescriptions Prescriptions: No Action atorvastatin 40 mg tablet 40 mg PO HS diltiazem HCl [DILT-XR] 240 mg capsule,ext.rel 24h degradable 240 mg PO QPM tramadol 50 mg tablet 50 mg PO Q6 PRN (Reason: Pain) acetaminophen [Tylenol Extra Strength] 500 mg Tablet 1,000 mg PO Q6H PRN (Reason: Pain) alprazolam 0.5 mg tablet 0.5 mg PO TID PRN (Reason: Anxiety) potassium 99 mg Tablet 99 mg PO DAILY cyanocobalamin (vitamin B-12) 1,000 mcg/mL Solution 1,000 mcg SUBCUT MO furosemide 20 mg tablet 20 mg PO BID cholecalciferol (vitamin D3) [Vitamin D3] 25 mcg (1,000 unit) Tablet 0 mcg PO DAILY Bevespi Aerosphere 9-4.8 mcg HFA aerosol inhaler 2 puff INHALATION BID pantoprazole [Protonix] 40 mg tablet,delayed release (DR/EC) 40 mg PO BID Qty: 60 2RF Referrals Referrals: Mathew Perez DO [Primary Care Provider] -
[2023-04-26] MEDS ORDERED: SODIUM CHLORIDE 0.9% 500 ML IV SCH (07:15)
[2023-04-26 07:51] LABS: Basophils # (auto) 0.08 K/uL (0-0.2); Basophils % (auto) 0.6 %; Eosinophils # (auto) 0.06 K/uL (0-0.50); Eosinophils % (auto) 0.5 %; Hemoglobin 11.6 g/dl (12.0-16.0); Immature Granulocytes # (auto) 0.05 K/uL (0.01-0.20); Immature Granulocytes % (auto) 0.4 %; Lymphocytes % (auto) 8.7 %; Mean Corpuscular Hemoglobin 25.1 pg (25.0-34.0); Mean Corpuscular Hgb Conc 31.4 g/dL (32.0-36.0); Mean Corpuscular Volume 80.1 fL (80.0-100.0); Mean Platelet Volume 10.3 fL (9.4-12.4); Monocytes # (auto) 0.99 K/uL (0.11-0.59); Monocytes % (auto) 7.8 %; Neutrophils # (auto) 10.43 K/uL (1.40-6.50); Platelet Count 422 K/uL (130-400); RDW Coefficient of Variation 17.9 % (11.5-14.5); RDW Standard Deviation 51.8 fL (36.4-46.3); Red Blood Count 4.62 M/uL (4.20-5.40); White Blood Count 12.71 K/ul (4.8-10.8)
--- NOTE | 2023-04-26 08:03 | XRay Report ---
XR chest 1V portable CLINICAL HISTORY: weakness TECHNIQUE: Single frontal radiograph of the chest was obtained. Comparison: Comparison is made to chest radiograph 03/08/2023 FINDINGS: No lines and tubes are seen. Cardiomegaly is noted. The aortic arch is calcified. Prominent perihilar opacities are seen which likely represent prominent pulmonary vasculature. There is cephalization an d prominence of the vasculature compatible with mild pulmonary hypertension. Small bilateral pleural effusions are seen. IMPRESSION: 1. Cardiomegaly and mild pulmonary edema. 2. Small bilateral pleural effusions. ACT 112: Negative or not required by law. Electronically signed by: Davonte Darnell M.D. 04/26/2023 8:02 AM
[2023-04-26 08:06] LABS: Albumin Level 3.9 gm/dl (3.4-5.0); Bilirubin,Total 0.7 mg/dl (0.2-1.0); Calcium 9.5 mg/dl (8.6-10.3); Magnesium 1.8 mg/dl (1.7-2.4); Potassium 4.2 mmol/L (3.5-5.1)
[2023-04-26 08:11] LABS: Albumin Globulin Ratio 1.6 (0.9-2); Creatinine Clr Calc Pharmacy 15.8 ml/min; Est GFR (African American) 22.3 ml/min; Est GFR (Non-African American) 19.3 ml/min; Globulin 2.4 gm/dl (2.5-4.0); Total Protein 6.3 gm/dl (6.0-8.3)
[2023-04-26 08:21] LABS: Troponin I High Sensitivity 73.3 pg/ml (0-14)
[2023-04-26 08:23] LABS: Thyroid Stimulating Hormone 7.505 uIu/ml (0.300-4.500)
[2023-04-26 08:56] LABS: T4 Free Thyroxine 0.97 ng/dl (0.61-1.60)
[2023-04-26] MEDS ORDERED: ASPIRIN 81 MG CHEW PO STA (09:08)
--- NOTE | 2023-04-26 10:20 | History & Physical Report ---
Date of Service April 26, 2023 Assessment & Plan (1) Generalized weakness: Plan: Attending: Dr. Herrera Impression: This is an 83-year-old female that was previously admitted here for blood loss anemia and received transfusion. She refused EGD and stated at that time that she did not want further care treatment. She was seen by palliative care in conjunction with her daughter and they decided that time not to entertain hospice, outpatient palliative care, or further medical care. Patient reports that she was in her usual state of health until 2 days ago when she noticed that she started to get weaker. She not able to sleep overnight last night. This morning she was unable to get out of her chair. She called her daughter who in turn called EMS. Patient was brought to the emergency department by ambulance. Hospitalist service was consulted for evaluation and admission. Incomplete database for the record. Apparently patient lives in [place] in [facility] and has received the majority of her care at [facility]. Records will be requested. Regarding patient's generalized weakness,Labs areNonrevealing to explain this level of weakness.A urine cultureHas been requested and not collected as of yet. Patient has no other evidence of infection. Neurological examination is nonrevealing. Patient's strength is equal and appropriate for upper and lower extremities. Patient does have lower extremity weakness that would be appropriate for her age Deep tendon reflexes are 2 out of 4Bilaterally to the brachial radialis,Bicep,And patellar tendons Patient is alert and oriented PT/OT consults have been requested Patient is resistant to considering placement in a senior care Urine culture and follow serial labs Out of bed with assistance only (2) Iron deficiency anemia: Plan: Patient required blood transfusion on her last admission. Currently patient's hemoglobin is acceptable and no transfusion is needed. We will check repeat labs in the morning (3) Chronic respiratory failure with hypoxia: Plan: Patient with [id number]-igck smoking history. She quit smoking 20 years ago Continue with supplemental oxygen to maintain SaO2 between 88 and 92% Patient does have COPD but PFTs were not available Continue with therapy including Bevespi aero sphere at this time. No adven titious breath sounds on examination (4) Elevated troponin level: Plan: Patient's troponin is elevated at 73.3. Patient does demonstrate history of elevated troponin in December and January with no acute CAD Suspect that this may be ischemic demand due to hypoxia and chronic kidney disease We will repeat troponin level at noon and follow serially EKG with no specific findings or ST wave changes (5) HTN (hypertension), benign: Plan: Patient is currently hemodynamically stable with a systolic pressure of 140. Continue home medications including diltiazem 240 mg p.o. every afternoon as well as furosemide 20 mg p.o. twice daily Follow patient on medical telemetry vital signs per protocol (6) HLD (hyperlipidemia): Plan: Continue outpatient management (7) CKD (chronic kidney disease): Plan: Baseline creatinine is 1.6-1.8. Patient's creatinine today is 2.25. We will gently hydrate with normal saline as patient also has some hyponatremia. Suspect oral intake has been decreased at home due to weakness Follow serial labs Avoid nephrotoxic medications (8) Atrial fibrillation: Plan: Currently normal sinus rhythm. Rate controlled in the 70s on my examination. 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 Due to advanced age of 83 and patient quit smoking more than 20 years ago, no indication for further surveillance screening (10) CVA (cerebrovascular accident): Plan: No evidence of acute changes. No focal neurological changes other than profound weakness (11) History of tobacco abuse: Plan: [id number]-[id number] smoking history. Quit smoking in 2001 Continue to abstain from tobacco products (12) Elevated TSH: Plan: Patient is not aware of previous history of hypothyroidism. TSH previously was 3.08 and 4.4. TSH on admission today is 7.505 Check T3/T4 Hold on levothyroxine at this time until labs are completed (13) Diabetes mellitus: Plan: Patient's outpatient medications at this time Place patient on NovoLog sliding scale insulin Hemoglobin A1c on 01/25/2023 was 6.4% Continue outpatient management Plan DVT prophylaxis: Heparin 5000 units every 12 hours Disposition: Due to profound weakness, PT/OT will be consulted for evaluation and treatment. Unclear at this time if patient will be able to return home or if she will need rehabilitation. We will place consultation request with case management for discharge planning and coordination with family Case was discussed with Dr. Herrera. Please refer to his addendum for further corrections and recommendations. History of Present Illness Chief Complaint: Weakness Primary Care Provider: Mathew Perez DO Attending: Dr. Herrera This is an 83-year-old female that presents for profound weakness. She has a past medical history including iron deficiency anemia, recent transfusion, history of right pneumonectomy for adenocarcinoma, CVA, chronic kidney failure, history of tobacco abuse, congestive heart failure, chronic respiratory failure with home oxygen, COPD, hypertension, hyperlipidemia, history of upper GI bleed, hyperlipidemia. Patient lives at home with her 90-year-old . Over the last several days she reports that she is become more weak. This morning, she was in her chair and was unable to get out of the chair. She called her daughter who called 911. On arrival patient was alert and oriented but found to be hypoxic with a reported SaO2 of 72%. Patient was placed on supplemental oxygen and recovered to the mid 90s. It is unclear if the patient home concentrator is malfunctioning or why patient's oxygenation was diminished. Patient has recent admission for anemia and received multiple transmissions. At that time patient refused EGD. Patient is a fairly poor historian. Unable to provide medications or history. She does report that she had previous history with [facility]. At this time chart was reviewed at [facility] and there are no records prior to December 2022. We will request records from [facility] to see if we can complete the database. Patient currently reports no chest pain or tightness. She has no shortness of breath. She does report profound weakness of her lower extremities. She is able to sit up in bed by using handrails on bed. She does not need assistance to sit up. Examination is fairly benign. She has no lower extremity edema and no pretibial tenderness. Patient is hard of hearing and hears better out of the right ear. Patient has no other acute complaints other than weakness. Allergies Allergy/AdvReac Type Severity Reaction Status Date / Time No Known Allergies Allergy Unverified 04/26/23 12:10 Home Medications Medication Instructions Recorded Confirmed Type acetaminophen 500 mg tablet 1,000 mg PO Q6H PRN Pain 01/24/23 04/26/23 History (Tylenol Extra Strength) alprazolam 0.5 mg tablet 0.5 mg PO TID PRN Anxiety 01/24/23 04/26/23 History cyanocobalamin (vitamin B-12) 1,000 mcg subcut MO 01/24/23 04/26/23 History 1,000 mcg/mL injection solution diltiazem HCl 240 mg 240 mg PO QPM 01/24/23 04/26/23 History capsule,extended release 24 hr, controlled (DILT-XR) furosemide 20 mg tablet 20 mg PO BID 01/24/23 04/26/23 History glycopyrrolate 9 mcg-formoterol 2 puff inhalation BID 01/24/23 04/26/23 History 4.8 mcg HFA aerosol inhaler (Bevespi Aerosphere) tramadol 50 mg tablet 50 mg PO Q6 PRN Pain 01/24/23 04/26/23 History pantoprazole 40 mg tablet,delayed 40 mg PO BID #60 tabs 03/09/23 04/26/23 Rx release (Protonix) glipizide 5 mg tablet 5 mg PO DAILY 04/26/23 04/26/23 History hydrocortisone acetate 25 mg 25 mg VA TID PRN .. 04/26/23 04/26/23 History rectal suppository semaglutide 3 mg tablet (Rybelsus) 3 mg PO DAILY 04/26/23 04/26/23 History Past Med/Surg History Medical History (Updated 04/26/23 @ 12:59 by Alexei Tesfaye PA-C) Acute blood loss anemia Advanced care planning/counseling discussion Atrial fibrillation CKD (chronic kidney disease) COPD (chronic obstructive pulmonary disease) COPD, very severe CVA (cerebrovascular accident) Diabetes mellitus Dyspnea and respiratory abnormalities Elevated TSH GIB (gastrointestinal bleeding) History of tobacco abuse [id number]-[id number] smoking history. Quit smoking in 2001 HLD (hyperlipidemia) HTN (hypertension), benign Iron deficiency Lung cancer Palliative care by specialist Surgical History (Updated 04/26/23 @ 12:46 by Alexei Tesfaye PA-C) H/O: hysterectomy Hx of pneumonectomy To adenocarcinoma 20 years ago. Patient denies any recurrence Status post pneumonectomy Social History Smoking Status: Former smoker Tobacco Type: Cigarettes Second Hand Exposure: No; Do You Dip or Chew Tobacco: No; Hx Alcohol Use: No Hx Substance Use: No Preferred Language: Bulgarian Communication Ability: Effective Corporate Claims Examiner Required: No Beliefs That Will Affect Care: None Current Living Situation: Spouse Feels Safe at Home: Yes Assistive Devices: Cane, Glasses, Oxygen - Continuous and Walker Review of Systems Review of Systems: A total of 10 systems was reviewed and is negative other than as listed in the HPI Physical Exam Physical Exam: GENERAL : No acute distress EYES: No icterus, gaze conjugate NOSE: No evidence of epistaxis MOUTH: No lesions or candidiasis NECK: Supple LUNGS: Fine crackles at the bilateral bases. No appreciation of rhonchi. No appreciation of bronchospasm. No induced cough with deep inspiration. HEART: Regular, rate controlled ABDOMEN: Soft, NT, ND, BS Present EXTREMITIES: No LE edema, pedal pulses intact and equal bilaterally. Radial and ulnar pulses also equal in bilateral NEURO: A&OX3. Deep tendon reflexes 2 out of 4 to brachial radialis, bicep, and patellar tendons. Patient is hard of hearing but is able to answer questions appropriately. Gait and Romberg are deferred secondary to weakness. Results & Data Results & Data Vital Signs (Past 12 Hours) Vital Signs Temp Pulse Resp BP Pulse Ox O2 Del Method O2 Flow Rate 04/26/23 08:09 75 04/26/23 07:06 Nasal Cannula 04/26/23 07:08 36.9 C 75 20 149/101 H 94 Nasal Cannula 6 Critical Care Results & Data Vital Signs (Past 12 Hours) Vital Signs Temp Pulse Resp BP Pulse Ox O2 Del Method O2 Flow Rate 04/26/23 11:07 96 Nasal Cannula 4 04/26/23 12:00 72 20 96 Room Air 04/26/23 12:00 140/74 04/26/23 11:00 73 12 04/26/23 11:00 149/82 H 04/26/23 10:00 69 17 04/26/23 10:00 146/79 H 04/26/23 09:00 147/80 H 04/26/23 09:00 72 20 99 04/26/23 08:00 78 20 95 04/26/23 08:00 128/87 04/26/23 07:01 76 15 92 04/26/23 12:10 71 04/26/23 08:09 75 04/26/23 07:06 Nasal Cannula 04/26/23 07:08 36.9 C 75 20 149/101 H 94 Nasal Cannula 6 Lab & Micro Results (Past 24 Hours) RBC 4.62 M/uL (4.20-5.40) 04/26/23 WBC 12.71 K/ul (4.8-10.8) H 04/26/23 Hgb 11.6 g/dl (12.0-16.0) L 04/26/23 Hct 37.0 % (37.0-47.0) 04/26/23 MCV 80.1 fL (80.0-100.0) 04/26/23 MCH 25.1 pg (25.0-34.0) 04/26/23 MCHC 31.4 g/dL (32.0-36.0) L 04/26/23 RDW Standard Deviation 51.8 fL (36.4-46.3) H 04/26/23 RDW Coefficient of Variation 17.9 % (11.5-14.5) H 04/26/23 Plt Count 422 K/uL (130-400) H 04/26/23 MPV 10.3 fL (9.4-12.4) 04/26/23 Neutrophils (%) (Auto) 82.0 % 04/26/23 Lymphocytes (%) (Auto) 8.7 % 04/26/23 Monocytes # (Auto) 0.99 K/uL (0.11-0.59) H 04/26/23 Eosinophils # (Auto) 0.06 K/uL (0-0.50) 04/26/23 Immature Granulocyte % (Auto) 0.4 % 04/26/23 Neutrophils # (Auto) 10.43 K/uL (1.40-6.50) H 04/26/23 Lymphocytes # (Auto) 1.10 K/uL (1.2-3.4) L 04/26/23 Monocytes # (Auto) 0.99 K/uL (0.11-0.59) H 04/26/23 Eosinophils # (Auto) 0.06 K/uL (0-0.50) 04/26/23 Basophils # (Auto) 0.08 K/uL (0-0.2) 04/26/23 Immature Granulocyte # (Auto) 0.05 K/uL (0.01-0.20) 3 Na 131 mmol/L (136-145) L 04/26/23 K 4.2 mmol/L (3.5-5.1) 04/26/23 Cl 96 mmol/L (98-107) L 04/26/23 CO2 25 mmol/L (21-32) 04/26/23 Anion Gap 10 (3-11) 04/26/23 BUN 54 mg/dl (6-23) H 04/26/23 Creatinine 2.25 mg/dl (0.6-1.2) H 04/26/23 Estimated GFR ( Amer) 22.3 ml/min 04/26/23 Estimated GFR (Non-Af Amer) 19.3 ml/min 04/26/23 BUN/Creatinine Ratio 24.0 (10-20) H 04/26/23 Glu 212 mg/dl (70-99(Fasting)) H 04/26/23 Ca 9.5 mg/dl (8.6-10.3) 04/26/23 Total Bilirubin 0.7 mg/dl (0.2-1.0) 04/26/23 AST 15 U/L (13-39) 04/26/23 ALT 15 U/L (7-52) 04/26/23 Alkaline Phosphatase 77 U/L (34-104) 04/26/23 TP 6.3 gm/dl (6.0-8.3) 04/26/23 Albumin 3.9 gm/dl (3.4-5.0) 04/26/23 Globulin 2.4 gm/dl (2.5-4.0) L 04/26/23 Albumin/Globulin Ratio 1.6 (0.9-2) 04/26/23 Mg 1.8 mg/dl (1.7-2.4) 04/26/23 07:32 Calcium Level 9.5 mg/dl (8.6-10.3) 04/26/23 07:32 Diagnostic Findings (Past 24 Hours) Chest X-Ray 04/26/23 07:06 XR chest 1V portable CLINICAL HISTORY: weakness TECHNIQUE: Single frontal radiograph of the chest was obtained. Comparison: Comparison is made to chest radiograph 03/08/2023 FINDINGS: No lines and tubes are seen. Cardiomegaly is noted. The aortic arch is calcified. Prominent perihilar opacities are seen which likely represent prominent pulmonary vasculature. There is cephalization and prominence of the vasculature compatible with mild pulmonary hypertension. Small bilateral pleural effusions are seen. IMPRESSION: 1. Cardiomegaly and mild pulmonary edema. 2. Small bilateral pleural effusions. ACT 112: Negative or not required by law. Electronically signed by: Davonte Darnell M.D. 04/26/2023 8:02 AM I & O Totals 24 Hours 04/25/23 04/26/23 04/27/23 06:59 06:59 06:59 Intake Total 500 / 500 Balance 500 / 500 Cumulative 04/26/23 06:40 thru 04/26/23 08:02 Intake Total 500 Balance 500 RT Ventilator Mngmt (Last Documented) Ventilator Ordered Settings Respiratory Rate 20 04/26/23 12:00 Ventilator - PT Measurements Respiratory Rate 20 PG Care Time/CCT Total # of Minutes Spent Total Time Spent with Patient: Total time spent is greater than 50% in coordination of care (as documented) at patient's floor/unit and/or counseling patient:60 Coding Level of Care Code 46249 INT INP/OBS CARE 3/75MIN Diagnoses Generalized weakness R53.1 Iron deficiency anemia D50.9 Chronic respiratory failure with hypoxia J96.11 Elevated troponin level R77.8 HTN (hypertension), benign I10 HLD (hyperlipidemia) E78.5 CKD (chronic kidney disease) N18.9 Atrial fibrillation I48.91 Hx of pneumonectomy Z98.890; Z90.2 CVA (cerebrovascular accident) I63.9 History of tobacco abuse Z87.891 Elevated TSH R79.89 Diabetes mellitus E11.9 Time Spent (min) 60
--- NOTE | 2023-04-26 11:47 | Electrocardiogram Report ---
Test Reason : Blood Pressure : / mmHG Vent. Rate : 075 BPM Atrial Rate : 075 BPM P-R Int : 188 ms QRS Dur : 156 ms QT Int : 418 ms P-R-T Axes : 023 209 124 degrees QTc Int : 466 ms Normal sinus rhythm Right bundle branch block Possible Old Anterolateral infarct Nonspecific T wave abnormality Lateral leads Abnormal ECG When compared with ECG of 08-MAR-2023 12:34, Borderline criteria for Anterolateral infarct now present T wave inversion more evident in Lateral leads Confirmed by Abdulaziz Alexander ([id number]) on 04/26/2023 11:47:07 AM Referred By: REFERRED SELF Confirmed By:Abdulaziz Alexander
[2023-04-26] MEDS ORDERED: GLUCOSE 10 TAB/TUBE PO PRN (14:13)
[2023-04-26] MEDS ORDERED: DEXTROSE 50% 50 ML SYRINGE IV PRN (14:13)
[2023-04-26] MEDS ORDERED: CARBOHYDRATES FOR HYPOGLYCEMIA PO PRN (14:13)
[2023-04-26] MEDS ORDERED: POLYETHYLENE (MIRALAX) 17 GM PACK PO PRN (14:13)
[2023-04-26] MEDS ORDERED: MAGNESIUM HYDROXIDE SUSP 30 ML UDC PO PRN (14:13)
[2023-04-26] MEDS ORDERED: NON-FORMULARY MEDICATION (Potassium 99 mg Tablet) PO SCH (14:13)
[2023-04-26] MEDS ORDERED: GLUCAGON FOR INJ 1 MG VIAL SQ PRN (14:13)
[2023-04-26] MEDS ORDERED: ACETAMINOPHEN 500 MG TAB PO PRN (14:13)
[2023-04-26] MEDS ORDERED: SODIUM CHLORIDE 0.9% 1000ML 1,000 ML IV SCH (14:13)
[2023-04-26] MEDS ORDERED: GLUCOSE 40% GEL 15 GM TUBE PO PRN (14:13)
[2023-04-26] MEDS ORDERED: ALUMINUM/MAGNESIUM SUSP 30 ML UDC PO PRN (14:13)
[2023-04-26] MEDS ORDERED: traMADol HCL 50 MG TABLET ONE (14:22)
[2023-04-26] MEDS: traMADol HCL 50 MG TABLET PO PRN (14:30)
[2023-04-26] MEDS: PANTOprazole 40 MG TAB PO SCH ×2 (17:00→23:02)
[2023-04-26] MEDS ORDERED: FUROSEMIDE 20 MG TAB PO SCH (17:00)
[2023-04-26] MEDS: INSULIN ASPART PER UNIT CHARGE SC SCH ×2 (17:32→22:36)
[2023-04-26] MEDS ORDERED: FUROSEMIDE 40 MG/4 ML VIAL IV ONE ×2 (18:05→23:06)
[2023-04-26] MEDS: UMECLIDINIUM/VILANTEROL 62.5/25MCG 7 PUFFS/INHALER INH SCH (22:36)
[2023-04-26] MEDS: ATORVASTATIN 40 MG TAB PO SCH (23:01)
[2023-04-26] MEDS: dilTIAZem HCL 240 MG CAPCR PO SCH (23:01)
[2023-04-26] MEDS: CHOLECALCIFEROL 1,000 UNITS 25 MCG TAB PO SCH (23:03)
[2023-04-27] MEDS ORDERED: FUROSEMIDE INJ 20 MG/2 ML VIAL IV ONE (00:24)
[2023-04-27] MEDS: traMADol HCL 50 MG TABLET PO PRN (00:52)
[2023-04-27 01:28] LABS: Appearance Urine Turbid (Clear); Color Urine Yellow; Glucose Urine UA Negative (Negative); Protein Urine 3+ (Negative); Specific Gravity Urine >= 1.030 (1.000-1.030); pH Urine 5.5 (4.5-7.5)
[2023-04-27 01:29] LABS: Bilirubin Urine Negative (Negative); Blood Urine 3+ (Negative); Ketones Urine Negative (Negative); Leukocyte Esterase Urine 3+ (Negative); Nitrite Urine Negative (Negative); Urobilinogen Urine Negative (Negative)
[2023-04-27 01:42] LABS: Bacteria Urine 1+ (Negative); Epithelial Cell Urine 0-5 /lpf (0-5); WBC Urine >30 /hpf (0-5)
--- NOTE | 2023-04-27 05:41 | Communication Note ---
Date of Service: April 27, 2023 Urinalysis concerning for UTI. Per admission note, there was mention of initiating antibiotics, specifically azithromycin/doxycycline for assumed atypical coverage, for potential pneumonia if pt deteriorates. I ordered ceftriaxone primarily for UTI and will defer addition of other antibiotics to day team.
[2023-04-27] MEDS ORDERED: NYSTATIN POWDER 15GM BTL EXT PRN (06:18)
[2023-04-27] MEDS: cefTRIAXone SODIUM 2,000 MG in DEXTROSE 5% 50 ML IV SCH (06:50)
--- NOTE | 2023-04-27 07:30 | XRay Report ---
SINGLE VIEW CHEST CLINICAL HISTORY: Hypoxia FINDINGS: An AP, portable, upright chest radiograph is compared to study dated 04/26/2023. The heart i s enlarged noting atherosclerotic calcification of the thoracic aorta. There is pulmonary vascular co ngestion with evidence of interstitial edema. Postsurgical change is noted on the right. There are lo w lung volumes. There are small pleural effusions with bibasilar consolidation. No pneumothorax is se en. The skeletal structures are osteopenic. The bony thorax is grossly intact. Degenerative change is seen throughout the spine. IMPRESSION: 1. Cardiomegaly with evidence of congestive failure and pulmonary edema. This has worsened as compare d to yesterday. 2. Layering pleural effusions with bibasilar consolidation. ACT 112: Negative or not required by law. Electronically signed by: Alexei Salmeron M.D. 04/27/2023 7:28 AM
--- NOTE | 2023-04-27 08:23 | Ultrasound Report ---
US arterial duplex bilateral lower extremity CLINICAL HISTORY: Poor pulses bilaterally with cyanosis COMPARISON STUDY: None. FINDINGS: Ankle-brachial indices were unable to be performed due to the portable study. Scattered satinder cified plaque seen throughout the bilateral lower extremity arterial systems. Normal velocities and biphasic waveforms seen within the bilateral common femoral arteries. Focal occ lusion within the proximal right superficial femoral artery with distal reconstitution of the mid rig ht superficial femoral artery demonstrating monophasic waveforms. There are monophasic waveforms seen throughout the majority of the right popliteal and right calf arteries. Monophasic low velocity wave forms also seen within the right dorsalis pedis artery. Biphasic normal velocity waveforms within the left common femoral artery. Focus of hemodynamically si gnificant stenosis within the proximal left superficial femoral artery with a peak systolic velocity of 281 cm/s. Normal velocity biphasic waveforms seen within the mid to distal left superficial femora l artery and proximal popliteal artery. There are biphasic waveforms and normal velocities seen withi n the left calf arteries. Low velocity monophasic waveforms seen within the left dorsalis pedis arter y. IMPRESSION: 1. 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 There are monophasic waveforms within the right lower extr emity distal to the site of occlusion. 2. Focal hemodynamically significant stenosis within the proximal left superficial femoral artery. 3. Scattered calcified plaque seen throughout the bilateral lower extremity arterial systems. ACT 112: Negative or not required by law. Electronically signed by: Del Luis M.D. 04/27/2023 8:21 AM
[2023-04-27 08:40] LABS: Hematocrit (blood only) 39.8 % (37.0-47.0); Hemoglobin 12.2 g/dl (12.0-16.0); Mean Corpuscular Hemoglobin 25.2 pg (25.0-34.0); Mean Corpuscular Hgb Conc 30.7 g/dL (32.0-36.0); Mean Corpuscular Volume 82.2 fL (80.0-100.0); Mean Platelet Volume 9.9 fL (9.4-12.4); Platelet Count 380 K/uL (130-400); RDW Coefficient of Variation 17.9 % (11.5-14.5); RDW Standard Deviation 53.1 fL (36.4-46.3); Red Blood Count 4.84 M/uL (4.20-5.40)
[2023-04-27] MEDS ORDERED: FUROSEMIDE 20 MG TAB PO SCH (09:00)
[2023-04-27 09:06] LABS: BUN Creatinine Ratio 22.4 (10-20); Calcium 9.3 mg/dl (8.6-10.3); Creatinine Clr Calc Pharmacy 15.6 ml/min; Est GFR (African American) 19.3 ml/min; Est GFR (Non-African American) 16.6 ml/min; Potassium 4.7 mmol/L (3.5-5.1)
[2023-04-27 09:34] LABS: Estimated Average Glucose 209 mg/dl; Hemoglobin A1C 8.9 % (4.5-5.6)
[2023-04-27] MEDS: CHOLECALCIFEROL 1,000 UNITS 25 MCG TAB PO SCH (09:47)
[2023-04-27] MEDS: PANTOprazole 40 MG TAB PO SCH (09:47)
[2023-04-27] MEDS: UMECLIDINIUM/VILANTEROL 62.5/25MCG 7 PUFFS/INHALER INH SCH (09:49)
[2023-04-27] MEDS: INSULIN ASPART PER UNIT CHARGE SC SCH ×4 (09:51→20:22)
[2023-04-27] MEDS: FUROSEMIDE 40 MG/4 ML VIAL IV SCH (09:59)
--- NOTE | 2023-04-27 10:27 | XCELERA ---
[id number] \\[facility]CV[id number]\[id number]_PDF_[id number]
[2023-04-27] MEDS ORDERED: FUROSEMIDE 40 MG/4 ML VIAL IV STA (13:46)
--- NOTE | 2023-04-27 13:46 | Nephrology Consultation ---
Date of Consultation April 27, 2023 Assessment & Plan (1) Acute kidney injury: (2) HTN (hypertension), benign: (3) HLD (hyperlipidemia): (4) History of tobacco abuse: (5) Diabetes mellitus: (6) Iron deficiency anemia: (7) Chronic respiratory failure with hypoxia: (8) Generalized weakness: Plan 83-year-old female with stage IIIB CKD, b/l cr 1.5-1.7 most likely secondary to microvascular disease with more than 50 history of smoking, admitted with generalized weakness, weight gain, respiratory failure and acute kidney injury. On admission creatinine was 2.3 which worsened to 2.5. Blood pressure has been reasonable without any hypotensive episode. Urinalysis with low-grade proteinuria and hematuria. S been oliguric, urine output only 100 mL since yesterday. Found to have UTI, started on ceftriaxone. --Considering rapid rise in creatinine, oliguria, get renal ultrasound to exclude possibility for postrenal obstruction. -- there is high risk for rapid worsening of renal function. Discussed with daughter over the telephone and daughter mentioned that patient previously refused accepting dialysis if there is any need arises in future. Considering her overall poor health, other comorbidities, dialysis will not provide meaningful quality of life and her decision seems quite reasonable. -- will give Lasix 120 mg IV x1 does -- dose medications for eGFR less than 30, avoid nephrotoxic medications. Will follow Thank you for allowing me to participate in your patient's care. It was a pleasure to see Karime History of Present Illness Attending Physician: Nils Herrera MD History of Present Illness Ms. Karime Elam is a 83-year-old F with PMH of stage 3B CKD, iron deficiency anemia, recent transfusion, h/o right pneumonectomy for adenocarcinoma, CVA, tobacco abuse, CHF, COPD, chronic respiratory failure with home oxygen,, hypertension, hyperlipidemia, h/o upper GI bleed, admitted with generalized weakness, progressive shortness of breath and weight gain and acute kidney injury. Nephrology consult was requested for management of JALIL. Karime was brought to yesterday after is reported to be getting progressively weak to the point that she was unable to get herself up from sitting in a chair. On arrival patient was alert and oriented but found to be hypoxic with a reported SaO2 of 72%. Patient was placed on supplemental oxygen and recovered to the mid 90s. She was also noted to be significantly volume overloaded with bilateral pleural effusion pulmonary congestion, started on 80 mg of Lasix IV. On admission her creatinine was 2.3 which worsened to 2.5 this morning. Her baseline creatinine has been around 1.5-1.8. Urinalysis with low-grade proteinuria and microscopic hematuria as well as pyuria and bacteriuria, she was started on ceftriaxone for UTI. Has a Marcus catheter in place and over last 24 hours her urine output has been low, made only [address] abdomen pelvis in December of this year showed bilateral otherwise normal size kidney. She was recently admitted for anemia presumed to be secondary to upper GI bleeding, refused EGD at the time. Hemoglobin staying relatively stable. He has pretty advanced CV OPD, on home oxygen, also has history of right pneumonectomy for adenocarcinoma. during last visit palliative care was consulted however patient and family at that time refused hospice or transitional care. Stage IIIB CKD, baseline creatinine 1.5-1.8 most likely secondary to microvascular disease with history of hypertension, long history of smoking. no known family history of CKD or ESRD. She was sitting up in a chair, getting easily short of breath with decreased oxygen saturation to low 80s while talking. Allergies Allergy/AdvReac Type Severity Reaction Status Date / Time No Known Allergies Allergy Unverified 04/26/23 12:10 Home Medications Medication Instructions Recorded Confirmed Type acetaminophen 500 mg tablet 1,000 mg PO Q6H PRN Pain 01/24/23 04/26/23 History (Tylenol Extra Strength) alprazolam 0.5 mg tablet 0.5 mg PO TID PRN Anxiety 01/24/23 04/26/23 History cyanocobalamin (vitamin B-12) 1,000 mcg subcut MO 01/24/23 04/26/23 History 1,000 mcg/mL injection solution diltiazem HCl 240 mg 240 mg PO QPM 01/24/23 04/26/23 History capsule,extended release 24 hr, controlled (DILT-XR) furosemide 20 mg tablet 20 mg PO BID 01/24/23 04/26/23 History glycopyrrolate 9 mcg-formoterol 2 puff inhalation BID 01/24/23 04/26/23 History 4.8 mcg HFA aerosol inhaler (Bevespi Aerosphere) tramadol 50 mg tablet 50 mg PO Q6 PRN Pain 01/24/23 04/26/23 History pantoprazole 40 mg tablet,delayed 40 mg PO BID #60 tabs 03/09/23 04/26/23 Rx release (Protonix) glipizide 5 mg tablet 5 mg PO DAILY 04/26/23 04/26/23 History hydrocortisone acetate 25 mg 25 mg FL TID PRN .. 04/26/23 04/26/23 History rectal suppository semaglutide 3 mg tablet (Rybelsus) 3 mg PO DAILY 04/26/23 04/26/23 History Patient History Medical History (Updated 04/26/23 @ 12:59 by Alexei Tesfaye PA-C) Acute blood loss anemia Advanced care planning/counseling discussion Atrial fibrillation CKD (chronic kidney disease) COPD (chronic obstructive pulmonary disease) COPD, very severe CVA (cerebrovascular accident) Diabetes mellitus Dyspnea and respiratory abnormalities Elevated TSH GIB (gastrointestinal bleeding) History of tobacco abuse [id number] smoking history. Quit smoking in 2001 HLD (hyperlipidemia) HTN (hypertension), benign Iron deficiency Lung cancer Palliative care by specialist Surgical History (Updated 04/26/23 @ 12:46 by Alexei Tesfaye PA-C) H/O: hysterectomy Hx of pneumonectomy To adenocarcinoma 20 years ago. Patient denies any recurrence Status post pneumonectomy Social History Smoking Status: Former smoker Tobacco Type: Cigarettes Second Hand Exposure: No; Do You Dip or Chew Tobacco: No; Hx Alcohol Use: No Hx Substance Use: No Preferred Language: Latvian Communication Ability: Effective Upper Cutter Machine Required: No Beliefs That Will Affect Care: None Current Living Situation: Spouse Current Living Situation Comment: Other Information That Helps Us Care for You: No Feels Safe at Home: Yes Safety Concerns: Feels Safe At This Time Assistive Devices: Walker Review of Systems Review of Systems: detailed review of system was done and pertinent positives and negatives are mentioned above. Physical Exam Constitutional: WD/WN, vitals as above + acute distress and + ill appearing Eyes: + anicteric sclerae Neck: normal visual inspection Respiratory: + labored breathing Auscultation: + diminished lung sounds Cardiovascular: Rate/Rhythm: regular rate and + irregularly irregular Heart Sounds: normal S1 and normal S2 Extremities: no edema Gastrointestinal (Abdomen): Inspection/Auscultation: abdomen normal to inspection and normal bowel sounds Percussion/Palpation: abdomen soft; abdomen nontender Musculoskeletal: Extremities: extremities normal to inspection Skin: normal turgor; no rashes Neurologic: no focal motor deficits and not confused Psychiatric: Orientation: alert and oriented x 3 Affect: euthymic affect Results & Data Vital Signs (Past 12 Hours) Vital Signs Temp Pulse Pulse Resp BP Pulse Ox O2 Del Method 04/27/23 07:00 81 04/27/23 10:56 36.5 C 81 18 136/82 90 High Flow Nasal Cannula 04/27/23 08:12 81 04/27/23 07:27 36.3 C L 77 18 136/82 98 BiPAP 04/27/23 05:46 83 27 H 93 04/27/23 03:00 36.3 C L 88 20 133/81 90 Oxymask O2 Flow Rate FiO2 04/27/23 07:00 04/27/23 10:56 6 04/27/23 08:12 04/27/23 07:27 04/27/23 05:46 50 04/27/23 03:00 10 PG Care Time/CCT Total # of Minutes Spent Total Time Spent with Patient: Total time spent is greater than 50% in coordination of care (as documented) at patient's floor/unit and/or counseling patient: Coding Level of Care Code 61870 INT INP/OBS CARE 3/75MIN Diagnoses Acute kidney injury N17.9 HTN (hypertension), benign I10 HLD (hyperlipidemia) E78.5 History of tobacco abuse Z87.891 Diabetes mellitus E11.9 Iron deficiency anemia D50.9 Chronic respiratory failure with hypoxia J96.11 Generalized weakness R53.1
--- NOTE | 2023-04-27 17:04 | Ultrasound Report ---
US renal/blad retro comp CLINICAL HISTORY: renal failure TECHNIQUE: Multiple sonographic real-time images of the kidneys and bladder were obtained. COMPARISON: None available at the time of this dictation. FINDINGS: The right kidney measures 8.8 cm in length, and the left kidney measures 8.7 cm in length. The right kidney is normal in size, contour, cortical thickness, and echogenicity. No hydronephrosis is identified. Partially exophytic cyst is seen. The left kidney is normal in size, contour, cortical thickness and echogenicity. Caliectasis is seen without evidence of hydronephrosis. Exophytic cyst is seen. A Marcus catheter is seen in the collapsed bladder small free fluid and left pleural effusion noted. IMPRESSION: Bilateral kidneys are seen, mildly atrophic, without evidence of sean hydronephrosis or other acute abnormalities. ACT 112: Negative or not required by law. Electronically signed by: Davonte Darnell M.D. 04/27/2023 5:03 PM
--- NOTE | 2023-04-27 17:22 | Hospitalist Progress Note ---
Date of Service April 27, 2023 Assessment & Plan (1) Acute renal failure: Plan: Patient history acute kidney injury with chronic kidney disease stage III now she is oliguric and uric. Has no response to escalating doses of diuretics which portends a challenging situation. Was seen by nephrology in the past has refused dialysis. Did have an episode of paroxysmal shortness of breath overnight was rescued with BiPAP therapy. (2) Chronic respiratory failure with hypoxia: Plan: Acute on chronic respiratory failure with worsening hypoxemia requiring higher levels of supplementation Certainly impacted by acute systolic heart failure patient with [id number] smoking history. She quit smoking 20 years ago Continue with supplemental oxygen to maintain SaO2 between 88 and 92% Continue therapy for COPD and supplemental oxygen Reported history of adenocarcinoma with right upper lobectomy per patient report Oncology records were not available at this time (3) Elevated troponin level: Plan: Patient has a chronically elevated troponin did not suspect acute coronary syndrome certainly could be demand ischemia and influenced by her renal function. Echocardiogram from earlier this hospital stay shows an EF of 50 to 55% with a severely dilated right ventricle and severely reduced right ventricular systolic function, severe pulmonary artery hypertension (4) Atrial fibrillation: Plan: Currently normal sinus rhythm. Rate controlled Continue diltiazem Patient is not on chronic anticoagulation due to previous history of GI bleeds Patient has had previous triple vascular accidents which are influenced by atrial fibrillation peripheral artery disease persistent tobacco abuse and other risk factorsno additional focal changes Recurrent GI bleeds and resulted in chronic iron deficiency anemia currently the patient's hemoglobin is been stable not in need of transfusion (5) Diabetes mellitus: Plan: Patient on sliding scale insulin at this time Hemoglobin A1c on 01/25/2023 was 6.4% Continue outpatient management (6) Peripheral artery disease: Plan: Patient significant peripheral artery disease this is likely also impacting her lower extremities however given the overall decline in her renal function this is likely to be placed on the back burner until we can improve her acute decrease in renal function Plan DVT prophylaxis: Heparin 5000 units every 12 hours [place] is guarded if the patient has progressive renal failure could be hard to keep her out of congestive heart failure Patient is a DNR Admission and Anticipated Discharge Date Admission Date: April 26, 2023 Subjective Patient has significant events overnight when she had increasing shortness of breath and was placed on BiPAP. Imaging suggest congestive heart failure. Patient did not have significant diuresis was attempted parenteral loop diuretic. Marcus catheter was placed without much renal output. Patient was seen in the presence of her family she was discussed the results of the lower extremity Dopplers which show significant peripheral artery disease which likely explains her poor pulses and plethora to her feet. Patient is on supplemental oxygen at a higher level than her baseline she is in mild respiratory distress Physical Exam Physical Exam: Patient awake alert appropriate. Patient is with pursed of breathing using accessory muscles. She has decreased breath sounds at the bases and rales her extremities are still with pulselessness and delayed capillary refill but not blanched or cool Results & Data Results & Data Vital Signs (Past 12 Hours) Vital Signs Temp Pulse Pulse Resp BP Pulse Ox O2 Del Method 04/27/23 09:00 High Flow Nasal Cannula 04/27/23 14:58 97.5 F L 80 20 126/76 91 High Flow Nasal Cannula 04/27/23 07:00 81 04/27/23 10:56 97.7 F 81 18 136/82 90 High Flow Nasal Cannula 04/27/23 08:12 81 04/27/23 07:27 97.3 F L 77 18 136/82 98 BiPAP 04/27/23 05:46 83 27 H 93 O2 Flow Rate FiO2 04/27/23 09:00 6 04/27/23 14:58 6 04/27/23 07:00 04/27/23 10:56 6 04/27/23 08:12 04/27/23 07:27 04/27/23 05:46 50 Laboratory Results Reviewed CBC Reviewed chemistry PG Care Time/CCT Total # of Minutes Spent Total Time Spent with Patient: Total time spent is greater than 50% in coordination of care (as documented) at patient's floor/unit and/or counseling patient: Coding Level of Care Code 05263 SUB INP/OBS CARE 3/50MIN Diagnoses Acute renal failure N17.9 Chronic respiratory failure with hypoxia J96.11 Elevated troponin level R77.8 Atrial fibrillation I48.91 Diabetes mellitus E11.9 Peripheral artery disease I73.9
--- NOTE | 2023-04-27 19:15 | Ultrasound Report ---
ULTRASOUND AORTA CLINICAL HISTORY: h/o infrarenal aneurysm, decreased renal function TECHNIQUE: Real-time, duplex and color Doppler sonographic images of the aorta were obtained. Comparison: None available at the time of this dictation. FINDINGS: The proximal aorta at the liver was not seen well. The aortic lumen is patent. The aortic w all is calcified consistent with atherosclerotic changes. Measurements: Proximal aorta 2.2 x 2.1 cm Mid aorta 4.0 x 3.3 cm Distal aorta 2.4 x 2.2 cm RCIA 1.0 x 1.0 cm LCIA 1.0 x 1.8 cm IMPRESSION: Abdominal aortic aneurysm with measurements as above. ACT 112: Negative or not required by law. Electronically signed by: Davonte Darnell M.D. 04/27/2023 7:13 PM
[2023-04-27] MEDS: HEPARIN SOD 5,000 UNIT/0.5 ML VIAL SQ SCH (20:24)
[2023-04-27] MEDS: dilTIAZem HCL 240 MG CAPCR PO SCH (20:25)
[2023-04-27] MEDS: ATORVASTATIN 40 MG TAB PO SCH (20:26)
[2023-04-28] MEDS: cefTRIAXone SODIUM 2,000 MG in DEXTROSE 5% 50 ML IV SCH (06:14)
[2023-04-28] MEDS: FAMOTIDINE 20 MG in SYRINGE 3 ML IV SCH (09:07)
[2023-04-28] MEDS: INSULIN ASPART PER UNIT CHARGE SC SCH ×4 (09:07→21:42)
[2023-04-28] MEDS: UMECLIDINIUM/VILANTEROL 62.5/25MCG 7 PUFFS/INHALER INH SCH (09:08)
[2023-04-28] MEDS: CHOLECALCIFEROL 1,000 UNITS 25 MCG TAB PO SCH (09:08)
[2023-04-28] MEDS: HEPARIN SOD 5,000 UNIT/0.5 ML VIAL SQ SCH (09:08)
[2023-04-28] MEDS: FUROSEMIDE 40 MG/4 ML VIAL IV SCH (09:09)
[2023-04-28 09:54] LABS: Hematocrit (blood only) 43.2 % (37.0-47.0); Hemoglobin 13.5 g/dl (12.0-16.0); Mean Corpuscular Hemoglobin 25.3 pg (25.0-34.0); Mean Corpuscular Hgb Conc 31.3 g/dL (32.0-36.0); Mean Corpuscular Volume 80.9 fL (80.0-100.0); Nucleated RBC # (auto) 0.03 K/uL (0-0.12); Nucleated RBC % (auto) 0.2 %; Platelet Count 392 K/uL (130-400); RDW Coefficient of Variation 18.5 % (11.5-14.5); RDW Standard Deviation 52.2 fL (36.4-46.3); Red Blood Count 5.34 M/uL (4.20-5.40); White Blood Count 14.69 K/ul (4.8-10.8)
[2023-04-28 10:07] LABS: Albumin Level 4.1 gm/dl (3.4-5.0); BUN Creatinine Ratio 22.4 (10-20); Creatinine Clr Calc Pharmacy 13.2 ml/min; Est GFR (African American) 15.8 ml/min; Est GFR (Non-African American) 13.7 ml/min; Phosphorus 5.8 mg/dl (2.5-4.9)
[2023-04-28] MEDS: traMADol HCL 50 MG TABLET PO PRN ×2 (13:42→23:58)
--- NOTE | 2023-04-28 14:58 | Nephrology Progress Note ---
Date of Service April 28, 2023 Assessment & Plan (1) Acute kidney injury: (2) HTN (hypertension), benign: (3) HLD (hyperlipidemia): (4) History of tobacco abuse: (5) Diabetes mellitus: (6) Iron deficiency anemia: (7) Chronic respiratory failure with hypoxia: (8) Generalized weakness: Plan 83-year-old female with stage IIIB CKD, b/l cr 1.5-1.7 most likely secondary to microvascular disease with more than 50 history of smoking, admitted with generalized weakness, weight gain, respiratory failure and acute kidney injury. On admission creatinine was 2.3 which worsened to 2.5. Blood pressure has been reasonable without any hypotensive episode. Urinalysis with low-grade p roteinuria and hematuria. S been oliguric, urine output only 100 mL since yesterday. Found to have UTI, started on ceftriaxone. Oliguric JALIL with progressive worsening of renal function, no/minimum response to IV diuretics. Renal USG with no post renal obstruction. --Considering rapid rise in creatinine, oliguria, normal renal ultrasound, there is high risk for rapid worsening of renal function. Discussed yesterday with daughter over the telephone and daughter mentioned that patient previously refused accepting dialysis if there is any need arises in future. Today, pt really did not want to discuss much and referred to her daughter Considering her overall poor health, other comorbidities, dialysis will not provide meaningful quality of life and her decision seems quite reasonable. --give Lasix 120 mg IV as needed although may not have much effect --dose medications for eGFR less than 30, avoid nephrotoxic medications. --strongly recommend hospice care although previously she/family refused. Will follow Admission and Anticipated Discharge Date Admission Date: April 26, 2023 José Schaffer was seen and evaluated this morning. Overall she is feeling about the same, getting easily SOB with minimum exertion or talking. Renal function continues to worsen, UO remains low, 300 ml since yesterday. Review of Systems Review of Systems: detailed review of system was done and pertinent positives and negatives are mentioned above. Physical Exam Constitutional: WD/WN, vitals as above + acute distress and + ill appearing Respiratory: + labored breathing Auscultation: + diminished lung sounds Cardiovascular: Rate/Rhythm: regular rate and + irregularly irregular Heart Sounds: normal S1 and normal S2 Extremities: no edema Skin: no rashes Neurologic: no focal motor deficits Psychiatric: Orientation: alert and oriented x 3 Affect: euthymic affect Results & Data Vital Signs (Past 12 Hours) Vital Signs Temp Pulse Pulse Resp BP Pulse Ox O2 Del Method 04/28/23 12:32 93 High Flow Nasal Cannula 04/28/23 12:30 85 L High Flow Nasal Cannula 04/28/23 12:17 36.3 C L 80 20 121/74 92 Nasal Cannula 04/28/23 09:18 High Flow Nasal Cannula 04/28/23 08:29 36.3 C L 80 17 130/88 95 Nasal Cannula 04/28/23 07:00 75 04/28/23 04:12 75 21 97 O2 Flow Rate FiO2 04/28/23 12:32 6 04/28/23 12:30 5 04/28/23 12:17 5 04/28/23 09:18 8 04/28/23 08:29 6 04/28/23 07:00 04/28/23 04:12 40 PG Care Time/CCT Total # of Minutes Spent Total Time Spent with Patient: Total time spent is greater than 50% in coordination of care (as documented) at patient's floor/unit and/or counseling patient: Coding Level of Care Code 56282 SUB INP/OBS CARE 3/50MIN Diagnoses Acute kidney injury N17.9 HTN (hypertension), benign I10 HLD (hyperlipidemia) E78.5 History of tobacco abuse Z87.891 Diabetes mellitus E11.9 Iron deficiency anemia D50.9 Chronic respiratory failure with hypoxia J96.11 Generalized weakness R53.1
[2023-04-28] MEDS ORDERED: Heparin IV Adult Wt-Based Standard WITH Bolus Protocol IV SCH (18:26)
--- NOTE | 2023-04-28 18:34 | Hospitalist Progress Note ---
Date of Service April 28, 2023 Assessment & Plan (1) Acute renal failure: Plan: Patient history acute kidney injury with chronic kidney disease stage III now she is oliguric and uric. Has little response to escalating doses of diuretic Nephrology is following ultrasound does not show any postobstructive causes likely causes are vascular disease (2) Chronic respiratory failure with hypoxia: Plan: Acute on chronic respiratory failure with worsening hypoxemia requiring higher levels of supplementation Certainly impacted by acute systolic heart failure and renal failure patient with [id number] smoking history. She quit smoking 20 years ago Continue with supplemental oxygen to maintain SaO2 between 88 and 92% Continue therapy for COPD and supplemental oxygen Reported history of adenocarcinoma with right upper lobectomy per patient report (3) Gangrene: Plan: Patient has evidence of progressing gangrene to her feet previous arterial Doppler does show bilateral vaso-occlusive disease with her progressive renal failure and the intravenous contrast dye would likely worsen her kidney function and she definitely does not want to be considered for dialysis therapy I spoke with her and her daughter and there is consideration if both her gangrene and renal function worsen she may progress towards hospice care She previously has not been on anticoagulation due to GI bleeds however with her progressive gangrene we will try heparin therapy this evening cautiously following blood counts (4) Elevated troponin level: Plan: Patient has a chronically elevated troponin did not suspect acute coronary syndrome certainly could be demand ischemia and influenced by her renal function. Echocardiogram from earlier this hospital stay shows an EF of 50 to 55% with a severely dilated right ventricle and severely reduced right ventricular systolic function, severe pulmonary artery hypertension (5) Atrial fibrillation: Plan: Currently normal sinus rhythm. Rate controlled Continue diltiazem Patient is not on chronic anticoagulation due to previous history of GI bleeds, with starting heparin therapy for her vascular insufficiency to her lower legs with what looks to be progressive cyanosis which likely lead to gangrene Patient has had previous cerebral vascular accidents which are influenced by atrial fibrillation peripheral artery disease persistent tobacco abuse and other risk factorsno additional focal changes Recurrent GI bleeds and resulted in chronic iron deficiency anemia currently the patient's hemoglobin is been stable not in need of transfusion (6) Diabetes mellitus: Plan: Patient on sliding scale insulin at this time Hemoglobin A1c on 01/25/2023 was 6.4% Continue outpatient management Plan [place] is guarded if the patient has progressive renal failure could be hard to keep her out of congestive heart failure if progressive gangrene ensues patient wishes to consider palliative care Patient is a DNR Admission and Anticipated Discharge Date Admission Date: April 26, 2023 Subjective Patient is in mild respiratory distress she is aware that her feet are progressively becoming more cyanotic with concern for progression of the gangrene we discussed the fact that the do angiography diagnostic or therapeutic would likely progressively worsen her acute kidney injury and she definitely does not want dialysis at this time subsequently we will not pursue vascular surgery consultation Physical Exam Physical Exam: Patient awake alert appropriate. Patient is with improved color still dyspneic at rest still requiring oxygen supplementation her extremities are still with pulselessness and delayed capillary refill her distal toes are now more purple capillary refill is much more delayed Results & Data Results & Data Vital Signs (Past 12 Hours) Vital Signs Temp Pulse Pulse Resp BP Pulse Ox O2 Del Method 04/28/23 16:23 97.5 F L 84 19 107/70 95 High Flow Nasal Cannula 04/28/23 14:11 83 04/28/23 12:32 93 High Flow Nasal Cannula 04/28/23 12:30 85 L High Flow Nasal Cannula 04/28/23 12:17 97.3 F L 80 20 121/74 92 Nasal Cannula 04/28/23 09:18 High Flow Nasal Cannula 04/28/23 08:29 97.3 F L 80 17 130/88 95 Nasal Cannula 04/28/23 07:00 75 O2 Flow Rate 04/28/23 16:23 6 04/28/23 14:11 04/28/23 12:32 6 04/28/23 12:30 5 04/28/23 12:17 5 04/28/23 09:18 8 04/28/23 08:29 6 04/28/23 07:00 PG Care Time/CCT Total # of Minutes Spent Total Time Spent with Patient: Total time spent is greater than 50% in coordination of care (as documented) at patient's floor/unit and/or counseling patient: Coding Level of Care Code 99440 SUB INP/OBS CARE 3/50MIN Diagnoses Acute renal failure N17.9 Chronic respiratory failure with hypoxia J96.11 Gangrene I96 Elevated troponin level R77.8 Atrial fibrillation I48.91 Diabetes mellitus E11.9
[2023-04-28] MEDS ORDERED: HEPARIN SODIUM/DEXTROSE 25,000 UNITS/500 ML BAG IV SCH (18:45)
[2023-04-28] MEDS ORDERED: HEPARIN SOD (PORCINE) 1000 UNIT/ML IV ONE (18:45)
[2023-04-28] MEDS: dilTIAZem HCL 240 MG CAPCR PO SCH (20:01)
[2023-04-28] MEDS: ATORVASTATIN 40 MG TAB PO SCH (20:01)
[2023-04-28] MEDS ORDERED: ONDANSETRON INJ 2 MG/ML 2 ML VIAL IV PRN (21:20)
[2023-04-29] MEDS: cefTRIAXone SODIUM 2,000 MG in DEXTROSE 5% 50 ML IV SCH (05:18)
[2023-04-29 06:36] LABS: Hematocrit (blood only) 40.5 % (37.0-47.0); Hemoglobin 12.7 g/dl (12.0-16.0); Mean Corpuscular Hemoglobin 25.7 pg (25.0-34.0); Mean Corpuscular Hgb Conc 31.4 g/dL (32.0-36.0); Mean Corpuscular Volume 81.8 fL (80.0-100.0); Mean Platelet Volume 10.7 fL (9.4-12.4); Nucleated RBC # (auto) 0.05 K/uL (0-0.12); Nucleated RBC % (auto) 0.2 %; Platelet Count 311 K/uL (130-400); RDW Coefficient of Variation 17.8 % (11.5-14.5); RDW Standard Deviation 51.4 fL (36.4-46.3); Red Blood Count 4.95 M/uL (4.20-5.40)
[2023-04-29 06:48] LABS: Albumin Level 3.6 gm/dl (3.4-5.0); Calcium 9.5 mg/dl (8.6-10.3); Potassium 5.4 mmol/L (3.5-5.1)
[2023-04-29 06:54] LABS: BUN Creatinine Ratio 22.7 (10-20); Creatinine Clr Calc Pharmacy 11.9 ml/min; Est GFR (Non-African American) 12.1 ml/min; Phosphorus 6.3 mg/dl (2.5-4.9)
--- NOTE | 2023-04-29 08:18 | Hospitalist Progress Note ---
Date of Service April 29, 2023 Assessment & Plan (1) Acute renal failure: Plan: Nephrology is following. Dr. Elizabeth's input is appreciated Patient is aware of severe renal failure. Is refusing dialysis as an option at this time. Patient is being treated for urinary tract infection Marcus catheter is in place. There is currently 200 mL of dark urine in the bag. Continue ceftriaxone Discussed options with daughter Laura. At this point, she agrees that hospice is a good option and is willing to talk to case management (2) Peripheral artery disease: (3) Gangrene: (4) Diabetes mellitus: (5) Elevated TSH: (6) HTN (hypertension), benign: (7) HLD (hyperlipidemia): (8) Atrial fibrillation: (9) Iron deficiency anemia: (10) Chronic respiratory failure with hypoxia: Admission and Anticipated Discharge Date Admission Date: April 26, 2023 Subjective Attending: Dr. Ribera This is an 83-year-old female admitted 04/26/2023 for generalized weakness. She was recently admitted for blood loss anemia and did well with transfusions. Patient had acute on chronic kidney failure on admission. Ultrasound did not show any postobstructive causes. Likely secondary to vascular disease. Patient and family do not wish to pursue dialysis at this time. Patient found to have bilateral vaso-occlusive disease of her feet. Question of gangrene at this time. Per review of chart, if patient's gangrene as well as renal function worsens, patient may be considered for hospice care. She is not interested in surgical consultation at this time. Patient is complaining of abdominal pain at this time as well. She does have a Marcus catheter in which is draining minimally which would be consistent with end-stage renal disease. There is no rebound tenderness. Abdominal is slightly distended but patient has no rebound tenderness or guarding. Bowel sounds are very quiet. Patient does agree to a KUB. Long discussion with patient and daughter Laura. At this time hospice is appropriate. Patient is resistant to fdc placement for hospice care. Daughter Laura understands that she would need to provide 24-hour care with the assistance of occasional hospice nurses helping with management. Case management is also in discussion with the patient regarding hospice and whether or not that is manageable by the family. Aside from her abdominal pain, patient also complaining of foot pain. She does have severe vascular deficiency. She is resistant to any surgical intervention. She does agree to escalation of analgesics. We will do a trial of Dilaudid 0.25 mg IV every 6 hours as needed in anticipation of discharge home on hospice in the next day or 2. Review of Systems Review of Systems: A total of 10 systems was reviewed and is negative other than as listed in the HPI Physical Exam Physical Exam: GENERAL : No acute distress EYES: No icterus, gaze conjugate NOSE: No evidence of epistaxis MOUTH: No lesions or candidiasis NECK: Supple LUNGS: CTA B/L, no wheezes, rales or rhonchi HEART: Regular, rate controlled ABDOMEN: Slightly distended abdomen. Quiet bowel sounds. No rebound tenderness or guarding. EXTREMITIES: Trace LE edema, pedal pulses intact. Patient does complain of pain to both feet. NEURO: A&OX3 Results & Data Results & Data Vital Signs (Past 12 Hours) Vital Signs Temp Pulse Pulse Resp BP Pulse Ox O2 Del Method 04/29/23 05:36 35.6 C L 85 20 132/80 98 Nasal Cannula 04/29/23 01:23 78 04/28/23 20:19 36.4 C L 79 18 126/76 91 Nasal Cannula O2 Flow Rate 04/29/23 05:36 5 04/29/23 01:23 04/28/23 20:19 6 Critical Care Results & Data Vital Signs (Past 12 Hours) Vital Signs Temp Pulse Pulse Resp BP Pulse Ox O2 Del Method 04/29/23 05:36 35.6 C L 85 20 132/80 98 Nasal Cannula 04/29/23 01:23 78 04/28/23 20:19 36.4 C L 79 18 126/76 91 Nasal Cannula O2 Flow Rate 04/29/23 05:36 5 04/29/23 01:23 04/28/23 20:19 6 Lab & Micro Results (Past 24 Hours) RBC 4.95 M/uL (4.20-5.40) 04/29/23 WBC 21.70 K/ul (4.8-10.8) H 04/29/23 Hgb 12.7 g/dl (12.0-16.0) 04/29/23 Hct 40.5 % (37.0-47.0) 04/29/23 MCV 81.8 fL (80.0-100.0) 04/29/23 MCH 25.7 pg (25.0-34.0) 04/29/23 MCHC 31.4 g/dL (32.0-36.0) L 04/29/23 RDW Standard Deviation 51.4 fL (36.4-46.3) H 04/29/23 RDW Coefficient of Variation 17.8 % (11.5-14.5) H 04/29/23 Plt Count 311 K/uL (130-400) 04/29/23 MPV 10.7 fL (9.4-12.4) 04/29/23 Nucleated Red Blood Cells % (auto) 0.2 % 04/29 Nucleated RBC Absolute Count (auto) 0.05 K/uL (0-0.12) 02/16 Na 131 mmol/L (136-145) L 04/29/23 K 5.4 mmol/L (3.5-5.1) H 04/29/23 Cl 98 mmol/L (98-107) 04/29/23 CO2 21 mmol/L (21-32) 04/29/23 Anion Gap 12 (3-11) H 04/29/23 BUN 75 mg/dl (6-23) H 04/29/23 Creatinine 3.31 mg/dl (0.6-1.2) H 04/29/23 Estimated GFR ( Amer) 14.0 ml/min 04/29/23 Estimated GFR (Non-Af Amer) 12.1 ml/min 04/29/23 BUN/Creatinine Ratio 22.7 (10-20) H 04/29/23 Glu 106 mg/dl (70-99(Fasting)) H 04/29/23 Ca 9.5 mg/dl (8.6-10.3) 04/29/23 Phosphorus Level 6.3 mg/dl (2.5-4.9) H 04/29/23 Albumin 3.6 gm/dl (3.4-5.0) 04/29/23 Calcium Level 9.5 mg/dl (8.6-10.3) 04/29/23 06:02 Microbiology 04/27/23 00:57 Urine Culture - Preliminary Urine,Straight Cath Escherichia coli Group B Beta Strep I & O Totals 24 Hours 06/02/23 06/03/23 06/04/23 06:59 06:59 06:59 Intake Total 390 / 390 370 / 370 Output Total 325 / 325 100 / 100 Balance 65 / 65 270 / 270 Cumulative 04/26/23 06:40 thru 04/29/23 06:10 Intake Total 2380 Output Total 525 Balance 1855 RT Ventilator Mngmt (Last Documented) Ventilator Ordered Settings Respiratory Rate 20 04/29/23 05:36 Fraction of Inspired Oxygen 40 04/28/23 04:12 Ventilator - PT Measurements Respiratory Rate 20 PG Care Time/CCT Total # of Minutes Spent Total Time Spent with Patient: Total time spent is greater than 50% in coordination of care (as documented) at patient's floor/unit and/or counseling patient: Coding Diagnoses Acute renal failure N17.9 Peripheral artery disease I73.9 Gangrene I96 Diabetes mellitus E11.9 Elevated TSH R79.89 HTN (hypertension), benign I10 HLD (hyperlipidemia) E78.5 Atrial fibrillation I48.91 Iron deficiency anemia D50.9 Chronic respiratory failure with hypoxia J96.11
[2023-04-29] MEDS: CHOLECALCIFEROL 1,000 UNITS 25 MCG TAB PO SCH (08:21)
[2023-04-29] MEDS: FUROSEMIDE 40 MG/4 ML VIAL IV SCH (08:22)
[2023-04-29] MEDS: UMECLIDINIUM/VILANTEROL 62.5/25MCG 7 PUFFS/INHALER INH SCH (08:22)
[2023-04-29] MEDS: FAMOTIDINE 20 MG in SYRINGE 3 ML IV SCH (08:22)
[2023-04-29] MEDS: INSULIN ASPART PER UNIT CHARGE SC SCH ×3 (08:28→16:40)
[2023-04-29] MEDS: traMADol HCL 50 MG TABLET PO PRN (09:55)
--- NOTE | 2023-04-29 11:03 | Nephrology Progress Note ---
Date of Service April 29, 2023 Assessment & Plan (1) Acute kidney injury: (2) HTN (hypertension), benign: (3) HLD (hyperlipidemia): (4) History of tobacco abuse: (5) Diabetes mellitus: (6) Iron deficiency anemia: (7) Chronic respiratory failure with hypoxia: (8) Generalized weakness: Plan 83-year-old female with stage IIIB CKD, b/l cr 1.5-1.7 most likely secondary to microvascular disease with more than 50 history of smoking, admitted with generalized weakness, weight gain, respiratory failure and acute kidney injury. On admission creatinine was 2.3 which worsened to 2.5. Blood pressure has been reasonable without any hypotensive episode. Urinalysis with low-grade p roteinuria and hematuria. S been oliguric, urine output only 100 mL since yesterday. Found to have UTI, started on ceftriaxone. Oliguric JALIL with progressive worsening of renal function, no/minimum response to IV diuretics. Renal USG with no post renal obstruction. --Considering rapid rise in creatinine, hyperkalemia, oligoanuria despite IV diuretics, normal renal ultrasound, there is high risk for rapid worsening of renal function. Discussed yesterday with daughter over the telephone and daughter mentioned that patient previously refused accepting dialysis if there is any need arises in future. Today, pt really did not want to discuss much as she has been in significant pain and discomfort. Considering her overall poor health, other comorbidities, dialysis will not provide meaningful quality of life and her decision seems quite reasonable. --give Lasix 120 mg IV as needed although may not have much effect --dose medications for eGFR less than 30, avoid nephrotoxic medications. --strongly recommend hospice care/ Comfort care Will follow Admission and Anticipated Discharge Date Admission Date: April 26, 2023 José Schaffer was seen and evaluated this morning. Overall she is feeling poorly and complaining of pain all over. Renal function continues to worsen, potassium elevated 5.4, UO remains low, 100 ml since yesterday, despite getting IV diuretics. Review of Systems Review of Systems: detailed review of system was done and pertinent positives and negatives are mentioned above. Physical Exam Constitutional: WD/WN, vitals as above + acute distress and + ill appearing Respiratory: + labored breathing Auscultation: + diminished lung sounds Cardiovascular: Rate/Rhythm: regular rate and + irregularly irregular Heart Sounds: normal S1 and normal S2 Extremities: no edema Skin: no rashes Neurologic: no focal motor deficits Psychiatric: Orientation: alert and oriented x 3 Affect: euthymic affect Results & Data Vital Signs (Past 12 Hours) Vital Signs Temp Pulse Pulse Resp BP Pulse Ox O2 Del Method 04/29/23 10:27 Nasal Cannula 04/29/23 08:55 36.3 C L 84 18 112/66 93 High Flow Nasal Cannula 04/29/23 08:51 68 04/29/23 05:36 35.6 C L 85 20 132/80 98 Nasal Cannula 04/29/23 01:23 78 O2 Flow Rate 04/29/23 10:27 6 04/29/23 08:55 6 04/29/23 08:51 04/29/23 05:36 5 04/29/23 01:23 PG Care Time/CCT Total # of Minutes Spent Total Time Spent with Patient: Total time spent is greater than 50% in coordination of care (as documented) at patient's floor/unit and/or counseling patient: Coding Level of Care Code 21717 SUB INP/OBS CARE 3/50MIN Diagnoses Acute kidney injury N17.9 HTN (hypertension), benign I10 HLD (hyperlipidemia) E78.5 History of tobacco abuse Z87.891 Diabetes mellitus E11.9 Iron deficiency anemia D50.9 Chronic respiratory failure with hypoxia J96.11 Generalized weakness R53.1
[2023-04-29] MEDS ORDERED: HYDROmorphone INJ 0.5 MG/0.5 ML SYR IV PRN (12:32)
--- NOTE | 2023-04-29 12:54 | XRay Report ---
KUB HISTORY: Acute generalized abdominal pain with distention Abdominal pain and distention COMPARISON: CT 01/24/2023 FINDINGS: Moderate gaseous distention of the stomach. Nonobstructive bowel gas pattern. Vascular calc ifications. No renal calculi. No ureteral calculi. No pneumoperitoneum or pneumatosis. Degenerative changes of the spine, pelvis and hips. No fracture. IMPRESSION: Mild gaseous distention of the stomach with nonobstructive bowel gas pattern. ACT 112: Negative or not required by law. The above report was generated using voice recognition software. It may contain grammatical, syntax o r spelling errors. Electronically signed by: Kurt Murray M.D. 04/29/2023 12:53 PM
[2023-04-29] MEDS ORDERED: NALOXONE HCL 0.4 MG/1 ML VIAL/CARP IV STA (13:33)
[2023-04-29] MEDS ORDERED: NALOXONE HCL 0.4 MG/1 ML VIAL/CARP ONE (13:35)
--- NOTE | 2023-04-29 18:06 | Death Pronouncement Note ---
Date of Service April 29, 2023 Pronouncement Note Admission Date Admission Date: April 26, 2023 Date and Time of Date of : 04/29/23 Time of : 17:34 Contributing Factors (1) Acute renal failure: (2) Peripheral artery disease: (3) Gangrene: (4) Diabetes mellitus: (5) Elevated TSH: (6) HTN (hypertension), benign: (7) HLD (hyperlipidemia): (8) Atrial fibrillation: (9) Iron deficiency anemia: (10) Chronic respiratory failure with hypoxia: Additional Data Attending physician: Blane Ribera Coding Diagnoses Acute renal failure N17.9 Peripheral artery disease I73.9 Gangrene I96 Diabetes mellitus E11.9 Elevated TSH R79.89 HTN (hypertension), benign I10 HLD (hyperlipidemia) E78.5 Atrial fibrillation I48.91 Iron deficiency anemia D50.9 Chronic respiratory failure with hypoxia J96.11
--- NOTE | 2023-05-01 11:41 | Discharge Summary ---
Date of Service April 29, 2023 Admission HPI Per Admitting Provider Attending: Dr. Herrera This is an 83-year-old female that presents for profound weakness. She has a past medical history including iron deficiency anemia, recent transfusion, history of right pneumonectomy for adenocarcinoma, CVA, chronic kidney failure, history of tobacco abuse, congestive heart failure, chronic respiratory failure with home oxygen, COPD, hypertension, hyperlipidemia, history of upper GI bleed, hyperlipidemia. Patient lives at home with her 90-year-old . Over the last several days she reports that she is become more weak. This morning, she was in her chair and was unable to get out of the chair. She called her daughter who called 911. On arrival patient was alert and oriented but found to be hypoxic with a reported SaO2 of 72%. Patient was placed on supplemental oxygen and recovered to the mid 90s. It is unclear if the patient home concentrator is malfunctioning or why patient's oxygenation was diminished. Patient has recent admission for anemia and received multiple transmissions. At that time patient refused EGD. Patient is a fairly poor historian. Unable to provide medications or history. She does report that she had previous history with [facility]. At this time chart was reviewed at [facility] and there are no records prior to December 2022. We will request records from [facility] to see if we can complete the database. Patient currently reports no chest pain or tightness. She has no shortness of breath. She does report profound weakness of her lower extremities. She is able to sit up in bed by using handrails on bed. She does not need assistance to sit up. Examination is fairly benign. She has no lower extremity edema and no pretibial tenderness. Patient is hard of hearing and hears better out of the right ear. Patient has no other acute complaints other than weakness. Discharge Data Allergies Allergy/AdvReac Type Severity Reaction Status Date / Time No Known Allergies Allergy Unverified 04/26/23 12:10 Consultations 04/26/23 09:09 ED Decision to Admit Stat 04/26/23 13:07 HIM [Consult Health Information Management] Stat 04/27/23 11:55 Consult Nephrology Routine Ordered Studies 04/26/23 18:05 US arterial duplex LE BI Routine 04/27/23 11:47 US Renal Bladder [US renal/blad retro comp] Routine US aorta duplex Routine Hospital Course (1) Acute renal failure: Nephrology is following. Dr. Elizabeth's input is appreciated Patient is aware of severe renal failure. Is refusing dialysis as an option at this time. Patient is being treated for urinary tract infection Marcus catheter is in place. There is currently 200 mL of dark urine in the bag. Continue ceftriaxone Discussed options with daughter Laura. At this point, she agrees that hospice is a good option and is willing to talk to case management (2) Peripheral artery disease: (3) Gangrene: (4) Diabetes mellitus: (5) Elevated TSH: (6) HTN (hypertension), benign: (7) HLD (hyperlipidemia): (8) Atrial fibrillation: (9) Iron deficiency anemia: (10) Chronic respiratory failure with hypoxia: Discharge Plan Discharge Items Reason For Visit: WEAKNESS Follow-up/Referrals: Mathew Perez DO [Primary Care Provider] - Medications and DC Order Prescriptions: No Action diltiazem HCl [DILT-XR] 240 mg capsule,ext.rel 24h degradable 240 mg PO QPM tramadol 50 mg tablet 50 mg PO Q6 PRN (Reason: Pain) acetaminophen [Tylenol Extra Strength] 500 mg Tablet 1,000 mg PO Q6H PRN (Reason: Pain) alprazolam 0.5 mg tablet 0.5 mg PO TID PRN (Reason: Anxiety) cyanocobalamin (vitamin B-12) 1,000 mcg/mL Solution 1,000 mcg SUBCUT MO furosemide 20 mg tablet 20 mg PO BID Bevespi Aerosphere 9-4.8 mcg HFA aerosol inhaler 2 puff INHALATION BID pantoprazole [Protonix] 40 mg tablet,delayed release (DR/EC) 40 mg PO BID Qty: 60 2RF hydrocortisone acetate 25 mg suppository 25 mg NH TID PRN (Reason: ..) glipizide 5 mg tablet 5 mg PO DAILY Rybelsus 3 mg tablet 3 mg PO DAILY Admission Data Admit Date/Time: 04/26/23 10:16 Attending Provider: Blane Ribera Admit Provider: Nils Herrera Primary Care Provider: Mathew Perez Other Providers: Nils Herrera ; Destini Jiang Coding Diagnoses Acute renal failure N17.9 Peripheral artery disease I73.9 Gangrene I96 Diabetes mellitus E11.9 Elevated TSH R79.89 HTN (hypertension), benign I10 HLD (hyperlipidemia) E78.5 Atrial fibrillation I48.91 Iron deficiency anemia D50.9 Chronic respiratory failure with hypoxia J96.11
== END 2023-04-29 17:34 | disposition expired | DRG 291 ==
LOC: ED 06:50 → SUATTDRO 10:16 → EDINP 10:16 → 2N 14:12